=== PATIENT | male | born 1940 | race Caucasian/White ===

== ENCOUNTER 2017-12-12 19:55 | Inpatient (IN) | payer MEDICARE ==
--- NOTE | 2017-12-12 20:22 | ED Physician Chart ---
ED Chief Complaint/HPI - Patient Information Date Seen:: 12/12/17 Time Seen:: 20:05 Chief Complaint:: abnormal labs History of Present Illness:: Patient sent from the custodial facility for the following abnormal labs: TSH of 24.9; BUN/creatinine 150; creatinine 8.1; calcium 7.6. Allergies:: Allergies Allergy/AdvReac Type Severity Reaction Status Date / Time No Known Allergies Allergy Verified 12/12/17 20:11 Vitals:: Vital Signs - 8 hr 12/12/17 19:55 Temp 96.0 F HR 55 RR 16 BP 76/37 O2 Sat % 99 Review:: Transfer documents Reviewed ED Review of Systems - Review of Systems General/Constitutional: No fever, No chills Skin: No skin lesions Head: No headache Eyes: No loss of vision ENT: No earache Neck: No neck pain Cardio Vascular: No chest pain, No palpitations Pulmonary: No SOB GI: No nausea, No vomiting, No diarrhea G/U: No dysuria Musculoskeletal: No bone or joint pain Endocrine: No polyuria, No polydipsia Psychiatric: No prior psych history Hematopoietic: No bruising Allergic/Immuno: No urticaria Neurological: No syncope ED Past Medical History - Past Medical History Past Medical History: HTN, CAD, Asthma/COPD, Other (nasopharyngeal neoplasm; anxiety) Family History: Other (unavailable) Social History: Care Facility Surgical History: PEG/GTube Medication: Reviewed Family Medical History - Family Member Mother History Unknown: Yes ED Physical Exam - Physical Examination Other Gen/Cons comments:: Chronically ill-appearing; nonverbal Head: Atraumatic Eyes: Lids, conjuctiva normal, PERRL Other Skin comments:: Chronic upper extremity skin changes ENMT: External ears, nose nl Neck: Nontender Other Respiratory comments:: Inspiratory and expiratory wheezing Cardio Vascular: RRR GI: No tenderness/rebounding/guarding : No CVA tenderness Extremities: No tenderness or effusion Neuro/Psych: No focal deficits ED Labs/Radiology/EKG Results - Lab Results Comments:: Laboratory Results - last 24 hr 12/12/17 12/12/17 12/12/17 20:32 20:32 20:32 WBC 9.4 RBC 2.95 L Hgb 9.0 L Hct 26.7 L MCV 90.7 MCH 30.3 MCHC Differential 33.5 RDW 13.7 Plt Count 193 MPV 9.0 Neutrophils % 69.3 Lymphocytes % 14.4 L Monocytes % 10.2 H Eosinophils % 5.7 H Basophils % 0.4 Sodium 140 Potassium 5.2 H Chloride 101 Carbon Dioxide 27.4 Anion Gap 16.8 H BUN 166 H* Creatinine 8.0 H* Est GFR ( Amer) TNP Est GFR (Non-Af Amer) TNP BUN/Creatinine Ratio 20.8 Glucose 97 Calcium 7.9 L Magnesium 3.0 H TSH 5.98 H - Radiology Results Results: CXR: NAD - EKG Interpretations Rate & Rhythm: sinus bradycardia at a rate of 52 Meredith: normal axis Comments:: Low-voltage ED Septic Shock - . Is Septic Shock (SBP<90, OR Lactate>4 mmol\L) present?: No - <6hrs of presentation: Vital Signs: Vital Signs - 8 hr 12/12/17 19:55 Temp 96.0 F HR 55 RR 16 BP 76/37 O2 Sat % 99 ED Reassessment (Disposition) - Reassessment Reassessment Condition:: Unchanged - Diagnosis Diagnosis:: renal failure; borderline hyperkalemia; hypermagnesemia - Patient Disposition Admitted to:: ICU Spoke to:: Doug Urbina Admitting Medical Physician:: Doug Urbina Condition at Disposition:: Stable, Unchanged
[2017-12-12 20:44] LABS: % BASOPHILS 0.4 % (0.0-2.0); % EOSINOPHILS 5.7 % (0.0-5.0); % LYMPHOCYTES 14.4 % (20.0-50.0); % MONOCYTES 10.2 % (2.0-10.0); % NEUTROPHILS 69.3 % (40.0-80.0); EOSINOPHILE ABSOLUTE 0.5 Th/cmm (0.1-0.4); HEMATOCRIT 26.7 % (41.0-60); LYMPHOCYTE ABSOLUTE 1.4 Th/cmm (1.5-3.0); MEAN CELL VOLUME 90.7 fl (80-99); MEAN CORPUSCULAR HEMOGLOBIN 30.3 pg (27.0-31.0); MEAN CORPUSCULAR HGB CONC 33.5 pg (28.0-36.0); NEUTROPHILE ABSOLUTE 6.5 Th/cmm (1.8-8.0); PLATELET COUNT 193 Th/cmm (150-400); RED BLOOD COUNT 2.95 Mil/cmm (3.80-5.80); RED CELL DISTRIBUTION WIDTH 13.7 % (11.5-20.0); WHITE BLOOD COUNT 9.4 Th/cmm (4.8-10.8)
[2017-12-12 20:57] LABS: ANION GAP 16.8 (7.0-16.0); CALCIUM SERUM 7.9 mg/dL (8.6-10.3); CARBON DIOXIDE 27.4 mEq/L (21.0-31.0); CHLORIDE 101 mEq/L (98-107); GLUCOSE 97 mg/dL (70-105); POTASSIUM SERUM 5.2 mEq/L (3.5-5.1); SODIUM SERUM 140 mEq/L (136-145)
[2017-12-12 20:59] LABS: BUN - UREA NITROGEN 166 mg/dL (7-25)
[2017-12-12] MEDS ORDERED: Fleet Enema 135 mL RC PRN (22:30)
[2017-12-12] MEDS ORDERED: D5-0.9%NS 1,000 ML IV SCH (22:30)
[2017-12-12] MEDS: Albuterol/Ipratropium Neb 3 ML AERS HHN SCH (23:00)
[2017-12-13] MEDS: Albumin 25% 12.5gm/50mL 12.5 GM/50 ML BTL IV SCH ×4 (01:11→22:22)
[2017-12-13] MEDS: D5-0.9%NS 1,000 ML IV SCH ×2 (01:12→10:24)
[2017-12-13] MEDS: Albuterol/Ipratropium Neb 3 ML AERS HHN SCH ×6 (03:31→22:54)
[2017-12-13] MEDS ORDERED: Pneumococcal Vaccine 0.5 mL Vial IM ONE (03:41)
[2017-12-13 05:03] LABS: % BASOPHILS 0.2 % (0.0-2.0); % EOSINOPHILS 7.6 % (0.0-5.0); % LYMPHOCYTES 14.5 % (20.0-50.0); % NEUTROPHILS 68.7 % (40.0-80.0); EOSINOPHILE ABSOLUTE 0.8 Th/cmm (0.1-0.4); HEMOGLOBIN 8.6 gm/dL (12-16); LYMPHOCYTE ABSOLUTE 1.5 Th/cmm (1.5-3.0); MEAN CELL VOLUME 90.5 fl (80-99); MEAN CORPUSCULAR HEMOGLOBIN 29.8 pg (27.0-31.0); MEAN CORPUSCULAR HGB CONC 32.9 pg (28.0-36.0); MEAN PLATELET VOLUME 8.7 fl; MONOCYTE ABSOLUTE 0.9 Th/cmm (0.3-1.0); NEUTROPHILE ABSOLUTE 7.1 Th/cmm (1.8-8.0); PLATELET COUNT 187 Th/cmm (150-400); RED BLOOD COUNT 2.88 Mil/cmm (3.80-5.80); RED CELL DISTRIBUTION WIDTH 13.5 % (11.5-20.0); WHITE BLOOD COUNT 10.3 Th/cmm (4.8-10.8)
[2017-12-13 05:08] LABS: INR 1.07 (0.5-1.4); PROTHROMBIN TIME (TEST) 11.1 SECONDS (9.5-11.5)
[2017-12-13 05:19] LABS: ALB/GLOB RATIO 0.8 (1.0-1.8); ALBUMIN 2.6 gm/dL (4.2-5.5); ALKALINE PHOSPHATASE 42 U/L (34-104); ANION GAP 16.1 (7.0-16.0); BILIRUBIN,TOTAL 0.4 mg/dL (0.3-1.0); CALCIUM SERUM 7.9 mg/dL (8.6-10.3); CARBON DIOXIDE 28.9 mEq/L (21.0-31.0); CHLORIDE 101 mEq/L (98-107); GLUCOSE 123 mg/dL (70-105); SGOT 18 U/L (13-39); SGPT/ALT 10 U/L (7-52); SODIUM SERUM 141 mEq/L (136-145); TOTAL PROTEIN,SERUM 5.8 gm/dL (6.0-8.3)
[2017-12-13 05:28] LABS: BUN - UREA NITROGEN 163 mg/dL (7-25)
[2017-12-13 05:29] LABS: CREATININE - SERUM 8.1 mg/dL (0.7-1.3)
[2017-12-13] MEDS ORDERED: Piperacillin Sodium/Tazobact 2.25 gm Vial IV ONE (06:00)
[2017-12-13] MEDS: Piperacillin Sodium/Tazobact 2.25 GM in Sodium Chloride 0.9% 100 ML IV SCH ×2 (06:00→13:49)
--- NOTE | 2017-12-13 07:39 | Diagnostic Imaging Report ---
Portable chest x-ray HISTORY: Cough The heart size is difficult to assess with portable technique in a poor inspiration, but appears somewhat increased. Atherosclerotic calcification seen in the aorta. Allowing for the poor inspiration, no acute pulmonary processes are seen. Surgical suture material noted over the mid chest. IMPRESSION: 1. No acute focal prominent processes 2. Suggestion of cardiomegaly with atherosclerotic vascular changes 3. Surgical changes
[2017-12-13] MEDS ORDERED: Ascorbic Acid 500 mg/5 mL UDC GT SCH ×2 (09:00→11:00)
[2017-12-13] MEDS ORDERED: Multivitamin w/ Minerals 15 mL UDC GT SCH (09:00)
[2017-12-13] MEDS: Pantoprazole 40 mg/Packet GT SCH (09:55)
--- NOTE | 2017-12-13 10:10 | Diagnostic Imaging Report ---
Renal ultrasound HISTORY: Abnormal renal function test The exam is extremely limited due to lack of patient cooperation and combativeness. The left kidney could not be adequately evaluated. The right kidney appears to be normal in size (10.5 x 5.8 x 5.1 cm). A 1.07 m sonolucent lesion is seen in the lower pole consistent with a cyst. No hydronephrosis. Limited evaluation of the urinary bladder with no obvious intraluminal abnormalities. IMPRESSION: 1. Very limited exam as noted above. The left kidney could not be evaluated. 2. No hydronephrosis associated with the right kidney 3. Small right renal cyst
[2017-12-13] MEDS: INSULIN ASPART, RECOMBINANT 100 UNITS/ML SUBQ SCH ×4 (10:32→21:00)
[2017-12-13] MEDS: Multivitamin w/ Minerals Tab GT SCH (11:04)
[2017-12-13] MEDS ORDERED: DOPamine 400 MG/250 ML BAG IV PRN (13:08)
[2017-12-13] MEDS ORDERED: D5-0.9%NS 1,000 ML IV SCH (13:10)
[2017-12-13] MEDS: DOPamine 400 MG/250 ML BAG IV PRN (13:45)
--- NOTE | 2017-12-13 14:04 | Internal Medicine Prog Note ---
Internal Medicine Subjective - Subjective Service Date: 12/13/17 ([facility] [id number]) Internal Medicine Objective - Results Result Diagrams: 12/13/17 04:30 12/13/17 04:30 Recent Labs: Laboratory Last Values WBC 10.3 Th/cmm (4.8-10.8) 12/13/17 04:30 RBC 2.88 Mil/cmm (3.80-5.80) L 12/13/17 04:30 Hgb 8.6 gm/dL (12-16) L 12/13/17 04:30 Hct 26.0 % (41.0-60) L 12/13/17 04:30 MCV 90.5 fl (80-99) 12/13/17 04:30 MCH 29.8 pg (27.0-31.0) 12/13/17 04:30 MCHC Differential 32.9 pg (28.0-36.0) 12/13/17 04:30 RDW 13.5 % (11.5-20.0) 12/13/17 04:30 Plt Count 187 Th/cmm (150-400) 12/13/17 04:30 MPV 8.7 fl 12/13/17 04:30 Neutrophils % 68.7 % (40.0-80.0) 12/13/17 04:30 Lymphocytes % 14.5 % (20.0-50.0) L 12/13/17 04:30 Monocytes % 9.0 % (2.0-10.0) 12/13/17 04:30 Eosinophils % 7.6 % (0.0-5.0) H 12/13/17 04:30 Basophils % 0.2 % (0.0-2.0) 12/13/17 04:30 PT 11.1 SECONDS (9.5-11.5) 12/13/17 04:30 INR 1.07 (0.5-1.4) 12/13/17 04:30 PTT (Actin FS) 30.7 SECONDS (26.0-38.0) 12/13/17 04:30 Sodium 141 mEq/L (136-145) 12/13/17 04:30 Potassium 5.0 mEq/L (3.5-5.1) 12/13/17 04:30 Chloride 101 mEq/L (98-107) 12/13/17 04:30 Carbon Dioxide 28.9 mEq/L (21.0-31.0) 12/13/17 04:30 Anion Gap 16.1 (7.0-16.0) H 12/13/17 04:30 BUN 163 mg/dL (7-25) H* 12/13/17 04:30 Creatinine 8.1 mg/dL (0.7-1.3) H* 12/13/17 04:30 Est GFR ( Amer) TNP 12/13/17 04:30 Est GFR (Non-Af Amer) TNP 12/13/17 04:30 BUN/Creatinine Ratio 20.1 12/13/17 04:30 Glucose 123 mg/dL (70-105) H 12/13/17 04:30 POC Glucose 134 MG/DL (70 - 105) H 12/13/17 11:08 Calcium 7.9 mg/dL (8.6-10.3) L 12/13/17 04:30 Magnesium 3.0 mg/dL (1.9-2.7) H 12/12/17 20:32 Total Bilirubin 0.4 mg/dL (0.3-1.0) 12/13/17 04:30 AST 18 U/L (13-39) 12/13/17 04:30 ALT 10 U/L (7-52) 12/13/17 04:30 Alkaline Phosphatase 42 U/L (34-104) 12/13/17 04:30 Ammonia 29 umol/L (16-53) 12/13/17 04:30 B-Natriuretic Peptide 945.0 pg/mL (5.0-100.0) H 12/13/17 04:30 Total Protein 5.8 gm/dL (6.0-8.3) L 12/13/17 04:30 Albumin 2.6 gm/dL (4.2-5.5) L 12/13/17 04:30 Globulin 3.2 gm/dL 12/13/17 04:30 Albumin/Globulin Ratio 0.8 (1.0-1.8) L 12/13/17 04:30 TSH 5.98 uIU/ml (0.34-5.60) H 12/12/17 20:32 - Physical Exam Vitals and I&O: Vital Signs Temp 96.8 F 12/13/17 12:00 Pulse 69 12/13/17 12:40 Resp 18 12/13/17 12:40 BP 117/67 12/13/17 12:00 Pulse Ox 98 12/13/17 12:40 Intake & Output 12/12/17 12/13/17 12/13/17 18:59 06:59 18:59 Intake Total 50 1430.066 Output Total 101 Balance 50 1329.066 Weight (lbs) 159 lb Intake: Intake, IV Amount 50 1120.066 Albumin 25% 12.5gm/50mL 50 12.5 gm In 50 ml @ 50 mls /hr IV Q8H [facility] Rx#: [id number] D5-0.9%Ns 1,000 ml @ 125 1000 mls/hr IV .Q8H [facility] Rx#: [id number] Norepinephrine 4 mg In 20.066 Dextrose 5% 250 ml @ Per Protocol IV TITR PRN Rx#: [id number] Piperacillin Sodium/ 100 Tazobact 2.25 gm In Sodium Chloride 0.9% 100 ml @ 100 mls/hr IV Q8HR [facility] Rx#:[id number] Tube Feeding 210 Other 100 Output: Urine 100 Stool 1 Other: Stool Characteristics Soft Soft Active Medications: Current Medications Acetaminophen (Tylenol) 650 mg GT Q4HR PRN PRN Reason: Pain or Fever >101 Stop: 02/10/18 22:29 Albuterol/Ipratropium (Duoneb Neb) 3 ml HHN Q4HRT [facility] Stop: 02/10/18 22:59 Last Admin: 12/13/17 12:40 Dose: 3 ml Ascorbic Acid (Vitamin C) 500 mg GT DAILY [facility] Stop: 02/11/18 10:59 Bisacodyl (Dulcolax 10 Mg Supp) 10 mg RC DAILY PRN PRN Reason: Constipation Stop: 02/10/18 22:29 Albumin Human (Albutein 25%) 12.5 gm in 50 mls @ 50 mls/hr IV Q8H [facility] Stop: 12/13/17 23:31 Last Admin: 12/13/17 08:00 Dose: 50 mls/hr Norepinephrine Bitartrate 4 mg (/ Dextrose) 254 mls @ 0 mls/hr IV TITR PRN; Protocol; Per Protocol PRN Reason: To Keep SBP Above 90 Stop: 02/10/18 22:33 Last Titration: 12/13/17 11:19 Dose: 0 mcg/min, 0 mls/hr Piperacillin Sod/Tazobactam (Sod 2.25 gm/ Sodium Chloride) 100 mls @ 100 mls/ hr IV Q8HR [facility] Stop: 02/11/18 04:59 Last Admin: 12/13/17 13:49 Dose: 100 mls/hr Dextrose/Sodium Chloride (D5-0.9%Ns) 1,000 mls @ 70 mls/hr IV .[id number] [facility] Stop: 02/11/18 13:07 Last Admin: 12/13/17 13:10 Dose: 70 mls/hr Dopamine HCl/Dextrose (Dopamine) 400 mg in 250 mls @ 8.114 mls/hr IV TITR PRN; 3 MCG/KG/MIN PRN Reason: RENAL PERFUSION Stop: 02/11/18 13:09 Last Admin: 12/13/17 13:45 Dose: 3 mcg/kg/min, 8.114 mls/hr Insulin Aspart (Novolog) 0 units SUBQ ACHS AYAN PRN Reason: Protocol Stop: 02/11/18 07:29 Last Admin: 12/13/17 11:09 Dose: Not Given Lorazepam (Ativan) 0.5 mg GT Q6HR PRN; Protocol PRN Reason: Anxiety Stop: 02/10/18 22:29 Ondansetron HCl (Zofran) 4 mg IVP Q6H PRN PRN Reason: Nausea / Vomiting Stop: 02/10/18 22:25 Pantoprazole Sodium (Protonix) 40 mg GT DAILY [facility] Stop: 02/11/18 08:59 Last Admin: 12/13/17 09:55 Dose: 40 mg Sodium Phosphate (Fleet Enema) 135 ml RC Q72HR PRN PRN Reason: Constipation Stop: 02/10/18 22:29
[2017-12-13 14:47] LABS: URINE MICROSCOPIC INDICATED? YES; URINE SOURCE CATH
[2017-12-13 14:52] LABS: URINE BILIRUBIN NEGATIVE (NEGATIVE); URINE BLOOD LARGE (NEGATIVE); URINE GLUCOSE (UA) NEGATIVE (NEGATIVE); URINE KETONE NEGATIVE (NEGATIVE); URINE LEUKOCYTE ESTERASE TRACE (NEGATIVE); URINE NITRATE NEGATIVE (NEGATIVE); URINE PH 7.5 (4.6 - 8.0); URINE PROTEIN 100 mg/dL (NEGATIVE); URINE UROBILINOGEN 0.2 E.U./dL (0.2 - 1.0)
[2017-12-13 15:47] LABS: URINE CLARITY SLIGHT CLOUDY (CLEAR); URINE COLOR RED
[2017-12-13 15:48] LABS: URINE RBC 50-100 /hpf (0-5)
[2017-12-13 15:49] LABS: URINE BACTERIA OCCASIONAL /hpf (NONE SEEN); URINE EPITHELIAL CELLS OCCASIONAL /lpf (FEW)
[2017-12-13] MEDS ORDERED: VTE Chemical Prophylaxis Screen/Admission MC PRN (15:51)
--- NOTE | 2017-12-13 16:06 | History & Physical ---
ADMIT DATE: 12/13/2017 CHIEF COMPLAINT: Abnormal labs. HISTORY OF PRESENT ILLNESS: This is a 77-year-old male who is a resident of [facility], who is admitted to the ICU unit. The patient's BUN was above 115, creatinine was 8.1. For this reason, the patient was transferred here to [facility]. The patient's son is at bedside and states that he will sign papers for the patient to be DNR and he does not want the patient to have any dialysis. The patient was on Levophed last night. The patient is now off of Levophed. PAST MEDICAL HISTORY: Pneumonia, history of nasopharyngeal cancer, COPD, CAD, anxiety, sepsis, CVA, hypertension, diabetes. PAST SURGICAL HISTORY: PEG. MEDICATIONS: Please see medication reconciliation. FAMILY HISTORY: Noncontributory. SOCIAL HISTORY: The patient is a snf resident concern for nursing care. REVIEW OF SYSTEMS: Unable to obtain due to patient's mental status. The patient is confused. PHYSICAL EXAMINATION: GENERAL: The patient appears chronically ill, awake with confusion in no apparent distress. VITAL SIGNS: Temperature 96.8, heart rate 70, blood pressure 117/67, respiration 15, O2 of 97%. HEENT: Head; normocephalic, atraumatic. NECK: Supple. No mass. LUNGS: Clear bilaterally. CARDIOVASCULAR: Regular rate and rhythm. ABDOMEN: Soft, nontender. LABORATORY DATA: WBC 10.3, H and H 8.6 and 26.0, platelet of 187. Sodium 141, potassium 5.0, chloride of 101, BUN 163, creatinine of 8.1, calcium 7.9. BNP of 945, TSH 5.98. DIAGNOSTIC: The patient had a chest x-ray done and the impression is no acute focal prominent processes suggestion of cardiomegaly with atherosclerotic vascular changes, surgical changes. The patient had a renal ultrasound done and the impression is very limited exam as noted above. The left kidney could not be evaluated. No hydronephrosis associated with the right kidney, small right renal cyst. ASSESSMENT: , acute renal failure, history of CVA, hypertension, diabetes, history of nasopharyngeal cancer, COPD, CAD, anxiety. PLAN: The patient will be monitored closely in the ICU. We will get Cardiology, Nephrology on the case. Also, Psychiatry. We will get a 2D echocardiogram done. IV fluids for hydration, dopamine for renal perfusion, empiric IV antibiotics. We will continue to follow this patient. [facility]# [id number]
--- NOTE | 2017-12-13 16:22 | Cardiology ---
12/13/[address] Urbina PROCEDURE: Echocardiogram. M-MODE ECHOCARDIOGRAM: Mitral valve, anterior leaflet of mitral valve shows normal excursion, EF velocity. Posterior leaflet of mitral valve shows normal excursion. Left ventricle posterior wall shows increased thickness, normal excursion. Interventricular septum shows increased thickness, normal excursion, hypertrophy of the left ventricle, ejection fraction 50%. Left atrium normal. Aortic root shows normal dimension, normal excursion of aortic leaflets. CONCLUSION: Hypertrophy of the left ventricle, ejection fraction 50%. 2D ECHO: Long axis view show normal size left ventricle with hypertrophy of the left ventricle. Left atrium enlarged. Aortic root shows normal dimension, normal excursion of aortic leaflets. Short axis view of mitral valve normal. Short axis view of aortic valve normal. Apical four chamber view showed normal sized left ventricle with hypertrophy of the left ventricle. Left atrium enlarged. Right ventricular cavity normal. Right atrial enlargement, ejection fraction 50%. CONCLUSION: Biatrial enlargement, ejection fraction 50%. Doppler study shows moderate tricuspid regurgitation, right ventricular systolic pressure 34 mmHg. JOB# [id number]
[2017-12-13] MEDS: methylPREDNISolone SS 40 mg Vial IVP SCH ×2 (16:55→20:59)
[2017-12-13] MEDS ORDERED: Probiotic Screen MC PRN (17:24)
[2017-12-13 18:36] LABS: A1C % 5.4 % (4.0-6.0)
--- NOTE | 2017-12-13 22:29 | Consultation ---
DATE OF CONSULTATION: 12/13/2017 REASON FOR CONSULTATION: Worsening kidney function, electrolyte imbalance, and fluid management. HISTORY OF PRESENT ILLNESS: This is a 77-year-old male with past medical history of nasopharyngeal CA, who was brought in because of abnormal labs. A few hours prior to admission, the patient had his labs drawn at the [facility]. This revealed a BUN/creatinine of 150/8.1 with a TSH of 24.9. He was then brought to the Emergency Room. His BUN/creatinine were 166/8, BNP of 945, but TSH down to 5.98. Renal ultrasound revealed no hydronephrosis on the right kidney and a small right cyst. Chest x-ray revealed no acute focal process. He had no history of nausea, vomiting, diarrhea, UTI. PAST MEDICAL HISTORY: 1. 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 Orosco. His oncologist is Dr. Cortez initiated chemotherapy followed by radiation by Dr. Willingham. 2. Status post CVA. 3. COPD. 4. Coronary artery disease. 5. Anxiety. 6. Essential hypertension. 7. Anemia of chronic disease. CURRENT MEDICATIONS: He is currently on acetaminophen, ascorbic acid, dopamine drip, Levophed, levothyroxine, lorazepam, multivitamins, pantoprazole, and Zosyn. ALLERGIES: No known drug allergies. SOCIAL AND FAMILY HISTORY: I was not able to obtain from the patient because he is currently stuporous. REVIEW OF SYSTEMS: Again, I was not able to decipher directly from the patient because of his depressed mental status. PHYSICAL EXAMINATION: GENERAL: The patient remains drowsy, not in any distress, with this mild tachypnea. VITAL SIGNS: Blood pressure is 108/74 and pulse 75. The patient is afebrile. SKIN: Poor turgor, warm. No rash, no jaundice appreciated. HEENT: Head normocephalic, atraumatic. Eyes: Extraocular muscles intact. Pupils equal, round, reactive to light and accommodates. Anicteric sclerae. Pale conjunctivae. Nose: Midline nasal septum. Mouth: Dry mucosa. Poor dentition. NECK: Supple, no adenopathy, no thyromegaly, no bruits. Trachea palpated in the midline. CHEST AND CARDIOVASCULAR: S1, S2. No rub, murmur, no gallop appreciated. Point of maximal impulse fifth intercostal space, left midclavicular line. No abdominal or femoral bruits appreciated. LUNGS: Equal expansion. Minimal use of accessory muscles, but no supraclavicular retractions, few rhonchi, but scattered expiratory wheezes. ABDOMEN: Obese, soft, positive for bowel sounds. No bruits either diastolic or systolic. RECTAL: Deferred. GENITOURINARY: Normal appearing male genitalia. MUSCULOSKELETAL: No effusions present in his joints, but unable to assess his range of motion. EXTREMITIES: No evidence of edema, cyanosis, or clubbing with palpable femoral, popliteal, and dorsalis pedis pulses. NEUROLOGIC: The patient is as mentioned is drowsy at the present time and so he was not able to follow my neuro exam. LABORATORY DATA: Revealed white count 10.3, hemoglobin 8.6, hematocrit 26, platelets 187, and polys 68.7%. Sodium 141, potassium 5, chloride 101, CO2 28, BUN was 63, creatinine 8.1, glucose 123, and calcium is 7.9. BNP is 945, ammonia 29, albumin 2.6. TSH 5.98. IMPRESSION: 1. Acute kidney injury. Although the patient currently is on a G-tube feeding with water flushes, the patient may have developed dehydration because of insufficient replenishment of fluids to cover for both sensible and insensible losses. He could have developed prerenal azotemia, which eventually progressed to acute tubular injury. 2. Exacerbation of chronic obstructive pulmonary disease. 3. Elevated BNP, likely due to his kidney failure. 4. Severe malnutrition. 5. History of nasopharyngeal CA, which has been treated. 6. Status post cerebrovascular accident. 7. Coronary artery disease. 8. History of anxiety. 9. Essential hypertension. 10. Anemia of chronic disease. PLAN: 1. Continue with IV fluids. 2. Maintain pressors. 3. Urinalysis. 4. Urine sodium, eosinophils, and creatinine. 5. Urine microalbumin to creatinine ratio. 6. Family does not want any aggressive management at this point including dialysis. Family has discussed this with the patient when he was more coherent. 7. Start the patient on steroids along with breathing treatments. 8. Start the patient on levothyroxine. JOB# [id number]
--- NOTE | 2017-12-14 02:29 | Consultation ---
DATE OF CONSULTATION: 12/13/[address] Urbina. HISTORY OF PRESENT ILLNESS: This 77-year-old male patient transferred from [place] due to elevated BUN 115, creatinine 8.4 and the patient is admitted. The patient's son request is to have a DNR and no dialysis. The patient at the present time is hypotensive and patient was on Levophed. Cardiac consult is requested in view of hypotension. PAST MEDICAL HISTORY: Pneumonia, nasopharyngeal cancer, COPD, stable angina, coronary artery disease, sepsis, anxiety, hypertension, diabetes, CVA with late effect, dysphagia with PEG placement, and protein-calorie malnutrition. FAMILY HISTORY: Unremarkable. SOCIAL HISTORY: No history of smoking or alcohol abuse. ALLERGIES: No known allergies. PHYSICAL EXAMINATION: VITAL SIGNS: Blood pressure 90 systolic, on Levophed, pulse 120, and respirations 28. HEENT: Normocephalic. No lumps or bumps. Eyes: Pupils equal, reactive to light. Fundi show AV nicking, sclerae white, conjunctivae pink. NECK: Carotid 2+. Normal upstroke. JVD flat. Thyroid not palpable. Lymph nodes not palpable. CHEST: Shows increased AP diameter. No kyphosis, scoliosis. LUNGS: Bilateral bronchovesicular breath sounds. Occasional wheeze. No rales. HEART: PMI fifth intercostal space with lateral to midclavicular line. S1, S2. No S3, S4, soft systolic murmur. ABDOMEN: Soft. Liver and spleen not palpable. PEG in place. NEUROLOGICAL: Unremarkable. EXTREMITIES: Peripheral pulses 2+. No pedal edema. CLINICAL IMPRESSION: Hypotension, septic shock, respiratory failure, hypothyroid, protein calorie malnutrition, dysphagia with PEG placement, nasopharyngeal cancer, chronic obstructive pulmonary disease, stable angina, cerebrovascular accident with late effect; diabetes mellitus type 2, and diabetic chronic kidney disease, stage V. PLAN: The patient to continue Levophed. We might add dopamine because of renal perfusion. The patient's condition discussed with the son at the bedside. He wishes the patient not to have dialysis. JOB# [id number]
[2017-12-14] MEDS: Albuterol/Ipratropium Neb 3 ML AERS HHN SCH ×6 (03:47→23:57)
[2017-12-14] MEDS: methylPREDNISolone SS 40 mg Vial IVP SCH ×3 (05:00→20:48)
[2017-12-14 05:27] LABS: ANION GAP 18.5 (7.0-16.0); CALCIUM SERUM 7.8 mg/dL (8.6-10.3); CARBON DIOXIDE 23.3 mEq/L (21.0-31.0); CHLORIDE 99 mEq/L (98-107); GLUCOSE 304 mg/dL (70-105); HEMATOCRIT 27.9 % (41.0-60); HEMOGLOBIN 9.5 gm/dL (12-16); LYMPHOCYTE ABSOLUTE 0.6 Th/cmm (1.5-3.0); MAGNESIUM 2.9 mg/dL (1.9-2.7); MANUAL DIFF REQUIRED? YES; MEAN CELL VOLUME 89.8 fl (80-99); MEAN CORPUSCULAR HEMOGLOBIN 30.5 pg (27.0-31.0); MEAN CORPUSCULAR HGB CONC 33.9 pg (28.0-36.0); MEAN PLATELET VOLUME 9.8 fl; PHOSPHOROUS 8.3 mg/dL (2.5-5.0); PLATELET COUNT 176 Th/cmm (150-400); POTASSIUM SERUM 5.8 mEq/L (3.5-5.1); RED CELL DISTRIBUTION WIDTH 13.6 % (11.5-20.0); SODIUM SERUM 135 mEq/L (136-145); URIC ACID 3.3 mg/dL (4.4-7.6); WHITE BLOOD COUNT 11.6 Th/cmm (4.8-10.8)
[2017-12-14 06:24] LABS: BUN - UREA NITROGEN 155 mg/dL (7-25); CREATININE - SERUM 7.6 mg/dL (0.7-1.3)
[2017-12-14 06:54] LABS: LYMPHOCYTE 6 % (20-50); MONOCYTE 2 % (2-10); NEUTROPHILS 92 % (40-80); PLATELET ESTIMATE ADEQUATE (NORMAL); TOTAL CELLS COUNTED 100
[2017-12-14] MEDS: INSULIN ASPART, RECOMBINANT 100 UNITS/ML SUBQ SCH ×4 (07:09→21:19)
[2017-12-14] MEDS: Levothyroxine 0.05 Mg Tab PO SCH (08:00)
[2017-12-14] MEDS: Multivitamin w/ Minerals Tab GT SCH (09:23)
[2017-12-14] MEDS: Pantoprazole 40 mg/Packet GT SCH (09:23)
[2017-12-14] MEDS: Lactobacillus Rhamnosus GG 15 Billion CFU CAP.SPRINK PO SCH (09:23)
[2017-12-14 09:48] LABS: EOSINOPHIL SMEAR SOURCE URINE; EOSINOPHILS SMEAR COUNT FEW EOSINOPHILS SEEN (NONE SEEN)
--- NOTE | 2017-12-14 14:41 | Internal Medicine Prog Note ---
Internal Medicine Subjective - Subjective Patient seen and examined:: with staff, chart reviewed Patient is:: awake, verbal, non-interactive, in bed, agitated, confused, congested Patient Complaints of:: congestion Per staff patient has:: no adverse event, no episodes of fall, agitated, combative, tolerating meds Internal Medicine Objective - Results Result Diagrams: 12/14/17 04:50 12/14/17 04:50 Recent Labs: Laboratory Last Values WBC 11.6 Th/cmm (4.8-10.8) H 12/14/17 04:50 RBC 3.10 Mil/cmm (3.80-5.80) L 12/14/17 04:50 Hgb 9.5 gm/dL (12-16) L 12/14/17 04:50 Hct 27.9 % (41.0-60) L 12/14/17 04:50 MCV 89.8 fl (80-99) 12/14/17 04:50 MCH 30.5 pg (27.0-31.0) 12/14/17 04:50 MCHC Differential 33.9 pg (28.0-36.0) 12/14/17 04:50 RDW 13.6 % (11.5-20.0) 12/14/17 04:50 Plt Count 176 Th/cmm (150-400) 12/14/17 04:50 MPV 9.8 fl 12/14/17 04:50 Neutrophils % 68.7 % (40.0-80.0) 12/13/17 04:30 Lymphocytes % 14.5 % (20.0-50.0) L 12/13/17 04:30 Monocytes % 9.0 % (2.0-10.0) 12/13/17 04:30 Eosinophils % 7.6 % (0.0-5.0) H 12/13/17 04:30 Basophils % 0.2 % (0.0-2.0) 12/13/17 04:30 Neutrophils (Manual) 92 % (40-80) H 12/14/17 04:50 Lymphocytes 6 % (20-50) L 12/14/17 04:50 Monocytes 2 % (2-10) 12/14/17 04:50 Platelet Estimate ADEQUATE (NORMAL) 12/14/17 04:50 Eos Smear Source URINE 12/14/17 05:20 Eos Smear Total Cells FEW EOSINOPHILS SEEN (NONE SEEN) 12/14/17 05:20 PT 11.1 SECONDS (9.5-11.5) 12/13/17 04:30 INR 1.07 (0.5-1.4) 12/13/17 04:30 PTT (Actin FS) 30.7 SECONDS (26.0-38.0) 12/13/17 04:30 Sodium 135 mEq/L (136-145) L 12/14/17 04:50 Potassium 5.8 mEq/L (3.5-5.1) H 12/14/17 04:50 Chloride 99 mEq/L (98-107) 12/14/17 04:50 Carbon Dioxide 23.3 mEq/L (21.0-31.0) 12/14/17 04:50 Anion Gap 18.5 (7.0-16.0) H 12/14/17 04:50 BUN 155 mg/dL (7-25) H* 12/14/17 04:50 Creatinine 7.6 mg/dL (0.7-1.3) H* 12/14/17 04:50 Est GFR ( Amer) TNP 12/14/17 04:50 Est GFR (Non-Af Amer) TNP 12/14/17 04:50 BUN/Creatinine Ratio 20.4 12/14/17 04:50 Glucose 304 mg/dL (70-105) H 12/14/17 04:50 POC Glucose 157 MG/DL (70 - 105) H 12/14/17 12:25 Hemoglobin A1c % 5.4 % (4.0-6.0) 12/13/17 04:30 Uric Acid 3.3 mg/dL (4.4-7.6) L 12/14/17 04:50 Calcium 7.8 mg/dL (8.6-10.3) L 12/14/17 04:50 Phosphorus 8.3 mg/dL (2.5-5.0) H 12/14/17 04:50 Magnesium 2.9 mg/dL (1.9-2.7) H 12/14/17 04:50 Total Bilirubin 0.4 mg/dL (0.3-1.0) 12/13/17 04:30 AST 18 U/L (13-39) 12/13/17 04:30 ALT 10 U/L (7-52) 12/13/17 04:30 Alkaline Phosphatase 42 U/L (34-104) 12/13/17 04:30 Ammonia 36 umol/L (16-53) 12/14/17 04:50 B-Natriuretic Peptide 945.0 pg/mL (5.0-100.0) H 12/13/17 04:30 Total Protein 5.8 gm/dL (6.0-8.3) L 12/13/17 04:30 Albumin 2.6 gm/dL (4.2-5.5) L 12/13/17 04:30 Globulin 3.2 gm/dL 12/13/17 04:30 Albumin/Globulin Ratio 0.8 (1.0-1.8) L 12/13/17 04:30 TSH 5.98 uIU/ml (0.34-5.60) H 12/12/17 20:32 Urine Source CATH 12/13/17 13:00 Urine Color RED 12/13/17 13:00 Urine Clarity SLIGHT CLOUDY (CLEAR) 12/13/17 13:00 Urine pH 7.5 (4.6 - 8.0) 12/13/17 13:00 Ur Specific [place] 1.015 (1.005-1.030) 12/13/17 13:00 Urine Protein 100 mg/dL (NEGATIVE) H 12/13/17 13:00 Urine Glucose (UA) NEGATIVE mg/dL (NEGATIVE) 12/13/17 13:00 Urine Ketones NEGATIVE mg/dL (NEGATIVE) 12/13/17 13:00 Urine Blood LARGE (NEGATIVE) H 12/13/17 13:00 Urine Nitrate NEGATIVE (NEGATIVE) 12/13/17 13:00 Urine Bilirubin NEGATIVE (NEGATIVE) 12/13/17 13:00 Urine Urobilinogen 0.2 E.U./dL (0.2 - 1.0) 12/13/17 13:00 Ur Leukocyte Esterase TRACE (NEGATIVE) H 12/13/17 13:00 Urine RBC 50-100 /hpf (0-5) H 12/13/17 13:00 Urine WBC 2-5 /hpf (0-5) 12/13/17 13:00 Ur Epithelial Cells OCCASIONAL /lpf (FEW) 12/13/17 13:00 Urine Bacteria OCCASIONAL /hpf (NONE SEEN) 12/13/17 13:00 Ur Random Sodium 80 mmol/L 12/14/17 05:20 Urine Creatinine 21.8 mg/dl (39.0-259.0) L 12/14/17 05:20 - Physical Exam Vitals and I&O: Vital Signs Temp 98.0 F 12/14/17 04:00 Pulse 74 12/14/17 10:57 Resp 13 12/14/17 10:57 BP 130/80 12/14/17 06:00 Pulse Ox 95 12/14/17 10:57 Intake & Output 12/13/17 12/14/17 12/14/17 18:59 06:59 18:59 Intake Total 2100.066 1879.493 Output Total 471 500 Balance 0609.359 6659.493 Weight (lbs) 78.642 kg 72.575 kg Intake: Intake, IV Amount 3465.659 1922.493 Albumin 25% 12.5gm/50mL 100 12.5 gm In 50 ml @ 50 mls /hr IV Q8H [facility] Rx#: [id number] D5-0.9%Ns 1,000 ml @ 125 1000 mls/hr IV .Q8H [facility] Rx#: [id number] D5-0.9%Ns 1,000 ml @ 70 1000 mls/hr IV .[id number] [facility] Rx #:[id number] DOPamine 400 mg In 250 ml 131.853 @ 3 MCG/KG/MIN 8.114 mls /hr IV TITR PRN Rx#: [id number] Norepinephrine 4 mg In 20.066 167.64 Dextrose 5% 250 ml @ Per Protocol IV TITR PRN Rx#: [id number] Piperacillin Sodium/ 100 Tazobact 2.25 gm In Sodium Chloride 0.9% 100 ml @ 100 mls/hr IV Q8HR [facility] Rx#:[id number] Piperacillin Sodium/ 100 Tazobact 2.25 gm In Sodium Chloride 0.9% 50 ml @ 100 mls/hr IV Q8HR [facility] Rx#:[id number] Tube Feeding 480 330 Other 300 150 Output: Urine 470 500 Stool 1 Other: # Bowel Movements 1 0 Active Medications: Current Medications Acetaminophen (Tylenol) 650 mg GT Q4HR PRN PRN Reason: Pain or Fever >101 Stop: 02/10/18 22:29 Albuterol/Ipratropium (Duoneb Neb) 3 ml HHN Q4HRT [facility] Stop: 02/10/18 22:59 Last Admin: 12/14/17 10:57 Dose: 3 ml Ascorbic Acid (Vitamin C) 500 mg GT DAILY [facility] Stop: 02/11/18 10:59 Last Admin: 12/14/17 09:23 Dose: 500 mg Bisacodyl (Dulcolax 10 Mg Supp) 10 mg RC DAILY PRN PRN Reason: Constipation Stop: 02/10/18 22:29 Norepinephrine Bitartrate 4 mg (/ Dextrose) 254 mls @ 0 mls/hr IV TITR PRN; Protocol; Per Protocol PRN Reason: To Keep SBP Above 90 Stop: 02/10/18 22:33 Last Titration: 12/14/17 01:30 Dose: 0 mcg/min, 0 mls/hr Dopamine HCl/Dextrose (Dopamine) 400 mg in 250 mls @ 8.114 mls/hr IV TITR PRN; 3 MCG/KG/MIN PRN Reason: RENAL PERFUSION Stop: 02/11/18 13:09 Last Infusion: 12/14/17 06:00 Dose: 3 mcg/kg/min, 8.114 mls/hr Piperacillin Sod/Tazobactam (Sod 2.25 gm/ Sodium Chloride) 50 mls @ 100 mls/hr IV Q8HR [facility] Stop: 02/11/18 04:59 Last Infusion: 12/14/17 05:30 Dose: Infused Dextrose/Sodium Chloride (D5-0.45ns) 1,000 mls @ 80 mls/hr IV .[id number] [facility] Stop: 02/12/18 14:44 Insulin Aspart (Novolog) 0 units SUBQ ACHS [facility] PRN Reason: Protocol Stop: 02/11/18 07:29 Last Admin: 12/14/17 12:32 Dose: Not Given Lactobacillus Rhamnosus (Culturelle 15b) 1 each PO DAILY [facility] Stop: 02/12/18 08:59 Last Admin: 12/14/17 09:23 Dose: 1 each Levothyroxine Sodium (Synthroid) 0.05 mg PO QDAC [facility] Stop: 02/12/18 07:29 Lorazepam (Ativan) 0.5 mg GT Q6HR PRN; Protocol PRN Reason: Anxiety Stop: 02/10/18 22:29 Last Admin: 12/14/17 09:23 Dose: 0.5 mg Methylprednisolone Sodium Succinate (Solu-Medrol) 60 mg IVP Q8HR [facility] Stop: 02/11/18 16:14 Last Admin: 12/14/17 05:00 Dose: 60 mg Miscellaneous (Vte Chemical Prophylaxis Screen/ Admission) 1 ea PRN PRN PRN Reason: PROTOCOL Stop: 02/11/18 15:50 Miscellaneous (Probiotic Screen) 1 ea PRN PRN PRN Reason: PROTOCOL Stop: 02/11/18 17:23 Ondansetron HCl (Zofran) 4 mg IVP Q6H PRN PRN Reason: Nausea / Vomiting Stop: 02/10/18 22:25 Pantoprazole Sodium (Protonix) 40 mg GT DAILY [facility] Stop: 02/11/18 08:59 Last Admin: 12/14/17 09:23 Dose: 40 mg Sodium Phosphate (Fleet Enema) 135 ml RC Q72HR PRN PRN Reason: Constipation Stop: 02/10/18 22:29 Sodium Polystyrene Sulfonate (Kayexalate) 60 gm PO X1 ONE Stop: 12/14/17 14:35 General: demented, bilateral temporal wasting HEENT: NC/AT, PERRLA Neck: Supple, No JVD Lungs: congested, rales, ronchi Cardiovascular: RRR, Normal S1, Normal S2, with murmur Abdomen: soft, non-tender, globular, +GT, positive bowel sound Extremities: excoriation, contracture, deformity Neurological: no change, unable to follow command, bedbound Internal Medicine Assmt/Plan - Assessment Assessment: sepsis arf hypotension cva int ca htn dm copd cad anemia - Plan Plan: cont on iv abx monitor renal function will review renal us dw dr rodriguez will correct maurisio ibarra rn Nutritional Asmnt/Malnutr-PDOC - Dietary Evaluation Malnutrition Findings (Please click <Entered> for more info): Nutritional Asmnt/Malnutrition Start: 12/13/17 14: 43 Text: Status: Complete Freq: Document 12/13/17 14:43 LCVERENICE (Rec: 12/13/17 14:54 LCHENG JOSE ALEJANDRO-[email or web address]) Nutritional Asmnt/Malnutrition Patient General Information Nutritional Screening High Risk Diagnosis hypotension, acute renal failure Pertinent Medical Hx/Surgical Hx HTN, CAD, asthma/COPD, nasopharyngeal neoplasm, anxiety, PEG-Gtube Subjective Information Pt seen lying in bed, confused . Verified TF running at 30ml/ hr at time of visit. Per nurse note 3/2, no residual noted. Current Diet Order/ Nutrition Support Novosource Renal 30ml/hr x 20hr Pertinent Medications Vit C, d5-0.9%ns, dopamine, novolog, protonix, piperacillin Pertinent Labs 3/2 na 141, K 5.0, Cl 101, BUN 163, Cr 8.1, Glucose 123, POC 123-134, Ca 7.9 Nutritional Hx/Data Height 1.57 m Height (Calculated Centimeters) 157.5 Current Weight (lbs) 72.121 kg Weight (Calculated Kilograms) 72.1 Weight (Calculated Grams) 29273.2 [place] Body Weight 118 % [place] Body Weight 135 Body Mass Index (BMI) 29.0 Weight Status Overweight GI Symptoms GI Symptoms None Last BM 3/2 Difficult in: None Skin Integrity/Comment: rash to left leg, bruise to right and left arm Estimated Nutritional Goals BEE in Kcals: Using Current wt Calories/Kcals/Kg 25-30 Kcals Calculated 9016-1060 Protein: Using Current wt Protein g/k.8-1 considering renal labs Protein Calculated 45-56 Fluid: ml per MD considering acute renal failure Nutritional Problem 1. Problem Problem altered nutrition related lab values Etiology dx of acute renal failure, hx of DM Signs/Symptoms: BUN 163, Cr 8.1, Glucose 123, POC 123-134 Malnutrition Alert Protein-Calorie Malnutrition N/A Is there a minimum of two criteria No selected? Query Text:Check all the applicable criteria. A minimum of two criteria are recommended for diagnosis of either severe or non-severe malnutrition. Intervention/Recommendation Comments 1. Continue with current TF regimen. It provides 1200kcal, 54g protein, 430ml free water , meeting 100% of nutritional needs 2. Monitor TF rate, tolerance, wt weekly, skin integrity and labs 3. F/U as high risk in 2-3 days, 3/4-3/5 Expected Outcomes/Goals Expected Outcomes/Goals 1. Pt to meet at least 75% of nutritional needs via nutrition support with tolerance 2. Wt stability, skin to remain intact, labs to approach WNL.
--- NOTE | 2017-12-14 15:06 | General Progress Note ---
Subjective - Review of Systems Service Date: 12/14/17 Subjective: awake, agitated, screaming Objective - Results Result Diagrams: 12/14/17 04:50 12/14/17 04:50 Recent Labs: Laboratory Last Values WBC 11.6 Th/cmm (4.8-10.8) H 12/14/17 04:50 RBC 3.10 Mil/cmm (3.80-5.80) L 12/14/17 04:50 Hgb 9.5 gm/dL (12-16) L 12/14/17 04:50 Hct 27.9 % (41.0-60) L 12/14/17 04:50 MCV 89.8 fl (80-99) 12/14/17 04:50 MCH 30.5 pg (27.0-31.0) 12/14/17 04:50 MCHC Differential 33.9 pg (28.0-36.0) 12/14/17 04:50 RDW 13.6 % (11.5-20.0) 12/14/17 04:50 Plt Count 176 Th/cmm (150-400) 12/14/17 04:50 MPV 9.8 fl 12/14/17 04:50 Neutrophils % 68.7 % (40.0-80.0) 12/13/17 04:30 Lymphocytes % 14.5 % (20.0-50.0) L 12/13/17 04:30 Monocytes % 9.0 % (2.0-10.0) 12/13/17 04:30 Eosinophils % 7.6 % (0.0-5.0) H 12/13/17 04:30 Basophils % 0.2 % (0.0-2.0) 12/13/17 04:30 Neutrophils (Manual) 92 % (40-80) H 12/14/17 04:50 Lymphocytes 6 % (20-50) L 12/14/17 04:50 Monocytes 2 % (2-10) 12/14/17 04:50 Platelet Estimate ADEQUATE (NORMAL) 12/14/17 04:50 Eos Smear Source URINE 12/14/17 05:20 Eos Smear Total Cells FEW EOSINOPHILS SEEN (NONE SEEN) 12/14/17 05:20 PT 11.1 SECONDS (9.5-11.5) 12/13/17 04:30 INR 1.07 (0.5-1.4) 12/13/17 04:30 PTT (Actin FS) 30.7 SECONDS (26.0-38.0) 12/13/17 04:30 Sodium 135 mEq/L (136-145) L 12/14/17 04:50 Potassium 5.8 mEq/L (3.5-5.1) H 12/14/17 04:50 Chloride 99 mEq/L (98-107) 12/14/17 04:50 Carbon Dioxide 23.3 mEq/L (21.0-31.0) 12/14/17 04:50 Anion Gap 18.5 (7.0-16.0) H 12/14/17 04:50 BUN 155 mg/dL (7-25) H* 12/14/17 04:50 Creatinine 7.6 mg/dL (0.7-1.3) H* 12/14/17 04:50 Est GFR ( Amer) TNP 12/14/17 04:50 Est GFR (Non-Af Amer) TNP 12/14/17 04:50 BUN/Creatinine Ratio 20.4 12/14/17 04:50 Glucose 304 mg/dL (70-105) H 12/14/17 04:50 POC Glucose 157 MG/DL (70 - 105) H 12/14/17 12:25 Hemoglobin A1c % 5.4 % (4.0-6.0) 12/13/17 04:30 Uric Acid 3.3 mg/dL (4.4-7.6) L 12/14/17 04:50 Calcium 7.8 mg/dL (8.6-10.3) L 12/14/17 04:50 Phosphorus 8.3 mg/dL (2.5-5.0) H 12/14/17 04:50 Magnesium 2.9 mg/dL (1.9-2.7) H 12/14/17 04:50 Total Bilirubin 0.4 mg/dL (0.3-1.0) 12/13/17 04:30 AST 18 U/L (13-39) 12/13/17 04:30 ALT 10 U/L (7-52) 12/13/17 04:30 Alkaline Phosphatase 42 U/L (34-104) 12/13/17 04:30 Ammonia 36 umol/L (16-53) 12/14/17 04:50 B-Natriuretic Peptide 945.0 pg/mL (5.0-100.0) H 12/13/17 04:30 Total Protein 5.8 gm/dL (6.0-8.3) L 12/13/17 04:30 Albumin 2.6 gm/dL (4.2-5.5) L 12/13/17 04:30 Globulin 3.2 gm/dL 12/13/17 04:30 Albumin/Globulin Ratio 0.8 (1.0-1.8) L 12/13/17 04:30 TSH 5.98 uIU/ml (0.34-5.60) H 12/12/17 20:32 Urine Source CATH 12/13/17 13:00 Urine Color RED 12/13/17 13:00 Urine Clarity SLIGHT CLOUDY (CLEAR) 12/13/17 13:00 Urine pH 7.5 (4.6 - 8.0) 12/13/17 13:00 Ur Specific [place] 1.015 (1.005-1.030) 12/13/17 13:00 Urine Protein 100 mg/dL (NEGATIVE) H 12/13/17 13:00 Urine Glucose (UA) NEGATIVE mg/dL (NEGATIVE) 12/13/17 13:00 Urine Ketones NEGATIVE mg/dL (NEGATIVE) 12/13/17 13:00 Urine Blood LARGE (NEGATIVE) H 12/13/17 13:00 Urine Nitrate NEGATIVE (NEGATIVE) 12/13/17 13:00 Urine Bilirubin NEGATIVE (NEGATIVE) 12/13/17 13:00 Urine Urobilinogen 0.2 E.U./dL (0.2 - 1.0) 12/13/17 13:00 Ur Leukocyte Esterase TRACE (NEGATIVE) H 12/13/17 13:00 Urine RBC 50-100 /hpf (0-5) H 12/13/17 13:00 Urine WBC 2-5 /hpf (0-5) 12/13/17 13:00 Ur Epithelial Cells OCCASIONAL /lpf (FEW) 12/13/17 13:00 Urine Bacteria OCCASIONAL /hpf (NONE SEEN) 12/13/17 13:00 Ur Random Sodium 80 mmol/L 12/14/17 05:20 Urine Creatinine 21.8 mg/dl (39.0-259.0) L 12/14/17 05:20 - Physical Exam Vitals and I&O: Vital Signs Temp 98.0 F 12/14/17 04:00 Pulse 73 12/14/17 14:47 Resp 11 12/14/17 14:47 BP 130/80 12/14/17 06:00 Pulse Ox 96 12/14/17 14:47 Intake & Output 12/13/17 12/14/17 12/14/17 18:59 06:59 18:59 Intake Total 2100.066 1879.493 Output Total 471 500 Balance 8502.122 7363.493 Weight (lbs) 78.642 kg 72.575 kg Intake: Intake, IV Amount 6573.465 8119.493 Albumin 25% 12.5gm/50mL 100 12.5 gm In 50 ml @ 50 mls /hr IV Q8H ON LICENSE OF [facility] Rx#: [id number] D5-0.9%Ns 1,000 ml @ 125 1000 mls/hr IV .Q8H ON LICENSE OF [facility] Rx#: [id number] D5-0.9%Ns 1,000 ml @ 70 1000 mls/hr IV .[id number] ON LICENSE OF [facility] Rx #:[id number] DOPamine 400 mg In 250 ml 131.853 @ 3 MCG/KG/MIN 8.114 mls /hr IV TITR PRN Rx#: [id number] Norepinephrine 4 mg In 20.066 167.64 Dextrose 5% 250 ml @ Per Protocol IV TITR PRN Rx#: [id number] Piperacillin Sodium/ 100 Tazobact 2.25 gm In Sodium Chloride 0.9% 100 ml @ 100 mls/hr IV Q8HR ON LICENSE OF [facility] Rx#:[id number] Piperacillin Sodium/ 100 Tazobact 2.25 gm In Sodium Chloride 0.9% 50 ml @ 100 mls/hr IV Q8HR ON LICENSE OF [facility] Rx#:[id number] Tube Feeding 480 330 Other 300 150 Output: Urine 470 500 Stool 1 Other: # Bowel Movements 1 0 Active Medications: Current Medications Acetaminophen (Tylenol) 650 mg GT Q4HR PRN PRN Reason: Pain or Fever >101 Stop: 02/10/18 22:29 Albuterol/Ipratropium (Duoneb Neb) 3 ml HHN Q4HRT ON LICENSE OF [facility] Stop: 02/10/18 22:59 Last Admin: 12/14/17 14:45 Dose: 3 ml Ascorbic Acid (Vitamin C) 500 mg GT DAILY [facility] Stop: 02/11/18 10:59 Last Admin: 12/14/17 09:23 Dose: 500 mg Bisacodyl (Dulcolax 10 Mg Supp) 10 mg RC DAILY PRN PRN Reason: Constipation Stop: 02/10/18 22:29 Haloperidol (Haldol) 1 mg PO Q6HR PRN; Protocol PRN Reason: Agitation Stop: 02/12/18 17:59 Norepinephrine Bitartrate 4 mg (/ Dextrose) 254 mls @ 0 mls/hr IV TITR PRN; Protocol; Per Protocol PRN Reason: To Keep SBP Above 90 Stop: 02/10/18 22:33 Last Titration: 12/14/17 01:30 Dose: 0 mcg/min, 0 mls/hr Dopamine HCl/Dextrose (Dopamine) 400 mg in 250 mls @ 8.114 mls/hr IV TITR PRN; 3 MCG/KG/MIN PRN Reason: RENAL PERFUSION Stop: 02/11/18 13:09 Last Infusion: 12/14/17 06:00 Dose: 3 mcg/kg/min, 8.114 mls/hr Piperacillin Sod/Tazobactam (Sod 2.25 gm/ Sodium Chloride) 50 mls @ 100 mls/hr IV Q8HR [facility] Stop: 02/11/18 04:59 Last Infusion: 12/14/17 05:30 Dose: Infused Dextrose/Sodium Chloride (D5-0.45ns) 1,000 mls @ 80 mls/hr IV .[id number] ON LICENSE OF [facility] Stop: 02/12/18 14:44 Insulin Aspart (Novolog) 0 units SUBQ ACHS [facility] PRN Reason: Protocol Stop: 02/11/18 07:29 Last Admin: 12/14/17 12:32 Dose: Not Given Lactobacillus Rhamnosus (Culturelle 15b) 1 each PO DAILY [facility] Stop: 02/12/18 08:59 Last Admin: 12/14/17 09:23 Dose: 1 each Levothyroxine Sodium (Synthroid) 0.05 mg PO QDAC [facility] Stop: 02/12/18 07:29 Lorazepam (Ativan) 0.5 mg GT Q6HR PRN; Protocol PRN Reason: Anxiety Stop: 02/10/18 22:29 Last Admin: 12/14/17 09:23 Dose: 0.5 mg Lorazepam (Ativan) 0.5 mg IV Q6H PRN; Protocol PRN Reason: Agitation Stop: 02/12/18 14:40 Methylprednisolone Sodium Succinate (Solu-Medrol) 60 mg IVP Q8HR [facility] Stop: 02/11/18 16:14 Last Admin: 12/14/17 05:00 Dose: 60 mg Miscellaneous (Vte Chemical Prophylaxis Screen/ Admission) 1 ea PRN PRN PRN Reason: PROTOCOL Stop: 02/11/18 15:50 Miscellaneous (Probiotic Screen) 1 ea PRN PRN PRN Reason: PROTOCOL Stop: 02/11/18 17:23 Ondansetron HCl (Zofran) 4 mg IVP Q6H PRN PRN Reason: Nausea / Vomiting Stop: 02/10/18 22:25 Pantoprazole Sodium (Protonix) 40 mg GT DAILY [facility] Stop: 02/11/18 08:59 Last Admin: 12/14/17 09:23 Dose: 40 mg Sodium Phosphate (Fleet Enema) 135 ml RC Q72HR PRN PRN Reason: Constipation Stop: 02/10/18 22:29 Sodium Polystyrene Sulfonate (Kayexalate) 60 gm PO X1 ONE Stop: 12/14/17 14:35 General: No acute distress HEENT: Atraumatic, EOMI, Mucous membr. moist/pink Neck: Supple Cardiovascular: Regular rate, Normal S1, Normal S2 Lungs: Other (few rhonchi) Abdomen: Bowel sounds, Soft Extremities: no Edema Neurological: Sensation intact Skin: no Rash Psych/Mental Status: Other (confused) Assessment/Plan - Assessment Assessment: DANIEL Excerbation COPD Severe Malnutrition Hx Nasopharyngeal CA S/P CVA CAD Ess HTN Anemia CD - Plan Plan: Lab - Result Diagrams 12/14/17 04:50 12/14/17 04:50 Current Medications Acetaminophen (Tylenol) 650 mg GT Q4HR PRN PRN Reason: Pain or Fever >101 Stop: 02/10/18 22:29 Albuterol/Ipratropium (Duoneb Neb) 3 ml HHN Q4HRT [facility] Stop: 02/10/18 22:59 Last Admin: 12/14/17 14:45 Dose: 3 ml Ascorbic Acid (Vitamin C) 500 mg GT DAILY [facility] Stop: 02/11/18 10:59 Last Admin: 12/14/17 09:23 Dose: 500 mg Bisacodyl (Dulcolax 10 Mg Supp) 10 mg RC DAILY PRN PRN Reason: Constipation Stop: 02/10/18 22:29 Haloperidol (Haldol) 1 mg PO Q6HR PRN; Protocol PRN Reason: Agitation Stop: 02/12/18 17:59 Norepinephrine Bitartrate 4 mg (/ Dextrose) 254 mls @ 0 mls/hr IV TITR PRN; Protocol; Per Protocol PRN Reason: To Keep SBP Above 90 Stop: 02/10/18 22:33 Last Titration: 12/14/17 01:30 Dose: 0 mcg/min, 0 mls/hr Dopamine HCl/Dextrose (Dopamine) 400 mg in 250 mls @ 8.114 mls/hr IV TITR PRN; 3 MCG/KG/MIN PRN Reason: RENAL PERFUSION Stop: 02/11/18 13:09 Last Infusion: 12/14/17 06:00 Dose: 3 mcg/kg/min, 8.114 mls/hr Piperacillin Sod/Tazobactam (Sod 2.25 gm/ Sodium Chloride) 50 mls @ 100 mls/hr IV Q8HR [facility] Stop: 02/11/18 04:59 Last Infusion: 12/14/17 05:30 Dose: Infused Dextrose/Sodium Chloride (D5-0.45ns) 1,000 mls @ 80 mls/hr IV .[id number] [facility] Stop: 02/12/18 14:44 Insulin Aspart (Novolog) 0 units SUBQ ACHS [facility] PRN Reason: Protocol Stop: 02/11/18 07:29 Last Admin: 12/14/17 12:32 Dose: Not Given Lactobacillus Rhamnosus (Culturelle 15b) 1 each PO DAILY [facility] Stop: 02/12/18 08:59 Last Admin: 12/14/17 09:23 Dose: 1 each Levothyroxine Sodium (Synthroid) 0.05 mg PO QDAC [facility] Stop: 02/12/18 07:29 Lorazepam (Ativan) 0.5 mg GT Q6HR PRN; Protocol PRN Reason: Anxiety Stop: 02/10/18 22:29 Last Admin: 12/14/17 09:23 Dose: 0.5 mg Lorazepam (Ativan) 0.5 mg IV Q6H PRN; Protocol PRN Reason: Agitation Stop: 02/12/18 14:40 Methylprednisolone Sodium Succinate (Solu-Medrol) 60 mg IVP Q8HR AYAN Stop: 02/11/18 16:14 Last Admin: 12/14/17 05:00 Dose: 60 mg Miscellaneous (Vte Chemical Prophylaxis Screen/ Admission) 1 ea PRN PRN PRN Reason: PROTOCOL Stop: 02/11/18 15:50 Miscellaneous (Probiotic Screen) 1 ea PRN PRN PRN Reason: PROTOCOL Stop: 02/11/18 17:23 Ondansetron HCl (Zofran) 4 mg IVP Q6H PRN PRN Reason: Nausea / Vomiting Stop: 02/10/18 22:25 Pantoprazole Sodium (Protonix) 40 mg GT DAILY AYAN Stop: 02/11/18 08:59 Last Admin: 12/14/17 09:23 Dose: 40 mg Sodium Phosphate (Fleet Enema) 135 ml RC Q72HR PRN PRN Reason: Constipation Stop: 02/10/18 22:29 Sodium Polystyrene Sulfonate (Kayexalate) 60 gm PO X1 ONE Stop: 12/14/17 14:35 Lab - Result Diagrams 12/14/17 04:50 12/14/17 04:50 Kidney fnc slightly better administer Kayexalate via NGT resp status better f/u electrolytes, cbc Nutritional Asmnt/Malnutr-PDOC - Dietary Evaluation Malnutrition Findings (Please click <Entered> for more info): Nutritional Asmnt/Malnutrition Start: 12/13/17 14: 43 Text: Status: Complete Freq: Document 12/13/17 14:43 LCHENG (Rec: 12/13/17 14:54 LCHENG JOSE [email or web address]) Nutritional Asmnt/Malnutrition Patient General Information Nutritional Screening High Risk Diagnosis hypotension, acute renal failure Pertinent Medical Hx/Surgical Hx HTN, CAD, asthma/COPD, nasopharyngeal neoplasm, anxiety, PEG-Gtube Subjective Information Pt seen lying in bed, confused . Verified TF running at 30ml/ hr at time of visit. Per nurse note 3/2, no residual noted. Current Diet Order/ Nutrition Support Novosource Renal 30ml/hr x 20hr Pertinent Medications Vit C, d5-0.9%ns, dopamine, novolog, protonix, piperacillin Pertinent Labs 3/2 na 141, K 5.0, Cl 101, BUN 163, Cr 8.1, Glucose 123, POC 123-134, Ca 7.9 Nutritional Hx/Data Height 1.57 m Height (Calculated Centimeters) 157.5 Current Weight (lbs) 72.121 kg Weight (Calculated Kilograms) 72.1 Weight (Calculated Grams) 36418.2 [place] Body Weight 118 % [place] Body Weight 135 Body Mass Index (BMI) 29.0 Weight Status Overweight GI Symptoms GI Symptoms None Last BM 3/2 Difficult in: None Skin Integrity/Comment: rash to left leg, bruise to right and left arm Estimated Nutritional Goals BEE in Kcals: Using Current wt Calories/Kcals/Kg 25-30 Kcals Calculated 5338-7642 Protein: Using Current wt Protein g/k.8-1 considering renal labs Protein Calculated 45-56 Fluid: ml per MD considering acute renal failure Nutritional Problem 1. Problem Problem altered nutrition related lab values Etiology dx of acute renal failure, hx of DM Signs/Symptoms: BUN 163, Cr 8.1, Glucose 123, POC 123-134 Malnutrition Alert Protein-Calorie Malnutrition N/A Is there a minimum of two criteria No selected? Query Text:Check all the applicable criteria. A minimum of two criteria are recommended for diagnosis of either severe or non-severe malnutrition. Intervention/Recommendation Comments 1. Continue with current TF regimen. It provides 1200kcal, 54g protein, 430ml free water , meeting 100% of nutritional needs 2. Monitor TF rate, tolerance, wt weekly, skin integrity and labs 3. F/U as high risk in 2-3 days, 3/4-3/5 Expected Outcomes/Goals Expected Outcomes/Goals 1. Pt to meet at least 75% of nutritional needs via nutrition support with tolerance 2. Wt stability, skin to remain intact, labs to approach WNL.
--- NOTE | 2017-12-14 16:20 | Consultation ---
DATE OF CONSULTATION: 12/14/2017 REQUESTING PHYSICIAN: Dr. Urbina. REASON FOR CONSULTATION: Agitation and psychosis. HISTORY OF PRESENT ILLNESS: This patient is a 77-year-old male admitted over here for altered level of mental status and worsening of kidney function and a psychiatric consultation is called to address the issue of the patient's behavior. Chart is reviewed. The patient is interviewed. During the interview, the patient is not able to provide any information. The patient has been screaming and yelling. Coping skills at the time of the hospitalization are also noted to be very poor. Staff are reporting that the patient has been resorting into agitated behavior. The patient has been placed on Ativan on a p.r.n. dosing at this time. PAST PSYCHIATRIC HISTORY: Details are not known. MEDICAL HISTORY: Significant for nasopharyngeal carcinoma diagnosed in 2014, and the patient has undergone chemotherapy as well as radiation. The patient also has a history of CVA, COPD and coronary artery disease, essential hypertension. SEXUAL ABUSE HISTORY: None. MENTAL EXAMINATION: The patient is a 77-year-old, looking his stated age, superficially cooperative. Eye contact is poor. Mood is noted to be irritable. Affect is constricted. Insight and judgment at this time are noted to be very much impaired. Impulse control seems to be limited. Coping skills are noted to be limited. The patient has been having difficult time to cope with the stress. The patient is screaming and yelling at this time and is not able to give any reasonable information. The patient short and long-term memory could not be tested because the patient is not able to provide much of any information. The patient at this time is grossly agitated and psychotic. DIAGNOSTIC IMPRESSION: Rule out delirium secondary to medical condition. PLAN: To use the haloperidol on a p.r.n. basis and follow the patient with the supportive therapy. Thank you, Dr. Urbina for allowing me to participate in the care of the patient. [facility]# [id number]
[2017-12-14] MEDS: D5-0.45NS 1,000 ML IV SCH (18:04)
[2017-12-14] MEDS: DOPamine 400 MG/250 ML BAG IV PRN (19:50)
[2017-12-15] MEDS: Albuterol/Ipratropium Neb 3 ML AERS HHN SCH ×6 (03:07→23:15)
[2017-12-15] MEDS: methylPREDNISolone SS 40 mg Vial IVP SCH ×3 (05:36→21:07)
[2017-12-15 05:51] LABS: ANION GAP 20.4 (7.0-16.0); CARBON DIOXIDE 24.2 mEq/L (21.0-31.0); CHLORIDE 103 mEq/L (98-107); POTASSIUM SERUM 4.6 mEq/L (3.5-5.1); SODIUM SERUM 143 mEq/L (136-145)
[2017-12-15 06:05] LABS: MANUAL DIFF REQUIRED? YES; MEAN CORPUSCULAR HEMOGLOBIN 30.8 pg (27.0-31.0); MONOCYTE ABSOLUTE 0.3 Th/cmm (0.3-1.0)
[2017-12-15 06:07] LABS: % BASOPHILS 0.1 % (0.0-2.0); % EOSINOPHILS 0.2 % (0.0-5.0); % NEUTROPHILS 92.7 % (40.0-80.0); HEMATOCRIT 26.4 % (41.0-60); HEMOGLOBIN 9.1 gm/dL (12-16); LYMPHOCYTE ABSOLUTE 0.9 Th/cmm (1.5-3.0); MEAN CELL VOLUME 89.7 fl (80-99); MEAN CORPUSCULAR HGB CONC 34.3 pg (28.0-36.0); NEUTROPHILE ABSOLUTE 15.9 Th/cmm (1.8-8.0); PLATELET COUNT 196 Th/cmm (150-400); RED BLOOD COUNT 2.95 Mil/cmm (3.80-5.80); RED CELL DISTRIBUTION WIDTH 13.6 % (11.5-20.0)
[2017-12-15 06:41] LABS: WHITE BLOOD COUNT 17.1 Th/cmm (4.8-10.8)
[2017-12-15] MEDS: INSULIN ASPART, RECOMBINANT 100 UNITS/ML SUBQ SCH ×4 (07:12→21:11)
[2017-12-15] MEDS: Levothyroxine 0.05 Mg Tab PO SCH (07:14)
[2017-12-15 08:23] LABS: BUN - UREA NITROGEN 162 mg/dL (7-25); CREATININE - SERUM 7.8 mg/dL (0.7-1.3)
[2017-12-15 08:24] LABS: GLUCOSE 187 mg/dL (70-105)
[2017-12-15] MEDS: Multivitamin w/ Minerals Tab GT SCH (08:59)
[2017-12-15] MEDS: Lactobacillus Rhamnosus GG 15 Billion CFU CAP.SPRINK PO SCH (09:00)
[2017-12-15] MEDS: D5-0.45NS 1,000 ML IV SCH ×2 (09:00→22:00)
[2017-12-15] MEDS: Pantoprazole 40 mg/Packet GT SCH (09:00)
[2017-12-15 10:09] LABS: CREATININEURINE 22.2 mg/dL (Not Estab.); MICROALBUMIN RANDOM RUINE 342.3 ug/mL (Not Estab.)
--- NOTE | 2017-12-15 10:20 | Diagnostic Imaging Report ---
Portable chest x-ray HISTORY: Shortness of breath, nasogastric tube placement Compared with prior exam of December 12, 2017, nasogastric tube has been inserted. The tip projects over the gastric area. The heart is enlarged. Accentuation of interstitial lung markings. IMPRESSION: 1. Nasogastric tube placement as noted above
--- NOTE | 2017-12-15 15:22 | General Progress Note ---
Subjective - Review of Systems Service Date: 12/15/17 Subjective: awake, agitated, screaming Objective - Results Result Diagrams: 12/15/17 04:40 12/15/17 04:40 Recent Labs: Laboratory Last Values WBC 17.1 Th/cmm (4.8-10.8) H D 12/15/17 04:40 RBC 2.95 Mil/cmm (3.80-5.80) L 12/15/17 04:40 Hgb 9.1 gm/dL (12-16) L 12/15/17 04:40 Hct 26.4 % (41.0-60) L 12/15/17 04:40 MCV 89.7 fl (80-99) 12/15/17 04:40 MCH 30.8 pg (27.0-31.0) 12/15/17 04:40 MCHC Differential 34.3 pg (28.0-36.0) 12/15/17 04:40 RDW 13.6 % (11.5-20.0) 12/15/17 04:40 Plt Count 196 Th/cmm (150-400) 12/15/17 04:40 MPV 10.0 fl 12/15/17 04:40 Neutrophils % 92.7 % (40.0-80.0) H 12/15/17 04:40 Lymphocytes % 5.0 % (20.0-50.0) L 12/15/17 04:40 Monocytes % 2.0 % (2.0-10.0) 12/15/17 04:40 Eosinophils % 0.2 % (0.0-5.0) 12/15/17 04:40 Basophils % 0.1 % (0.0-2.0) 12/15/17 04:40 Neutrophils (Manual) 92 % (40-80) H 12/14/17 04:50 Lymphocytes 6 % (20-50) L 12/14/17 04:50 Monocytes 2 % (2-10) 12/14/17 04:50 Platelet Estimate ADEQUATE (NORMAL) 12/14/17 04:50 Eos Smear Source URINE 12/14/17 05:20 Eos Smear Total Cells FEW EOSINOPHILS SEEN (NONE SEEN) 12/14/17 05:20 PT 11.1 SECONDS (9.5-11.5) 12/13/17 04:30 INR 1.07 (0.5-1.4) 12/13/17 04:30 PTT (Actin FS) 30.7 SECONDS (26.0-38.0) 12/13/17 04:30 Sodium 143 mEq/L (136-145) 12/15/17 04:40 Potassium 4.6 mEq/L (3.5-5.1) 12/15/17 04:40 Chloride 103 mEq/L (98-107) 12/15/17 04:40 Carbon Dioxide 24.2 mEq/L (21.0-31.0) 12/15/17 04:40 Anion Gap 20.4 (7.0-16.0) H 12/15/17 04:40 BUN 162 mg/dL (7-25) H* 12/15/17 04:40 Creatinine 7.8 mg/dL (0.7-1.3) H* 12/15/17 04:40 Est GFR ( Amer) TNP 12/15/17 04:40 Est GFR (Non-Af Amer) TNP 12/15/17 04:40 BUN/Creatinine Ratio 20.8 12/15/17 04:40 Glucose 187 mg/dL (70-105) H D 12/15/17 04:40 POC Glucose 174 MG/DL (70 - 105) H 12/15/17 11:56 Hemoglobin A1c % 5.4 % (4.0-6.0) 12/13/17 04:30 Uric Acid 3.3 mg/dL (4.4-7.6) L 12/14/17 04:50 Calcium 8.0 mg/dL (8.6-10.3) L 12/15/17 04:40 Phosphorus 8.3 mg/dL (2.5-5.0) H 12/14/17 04:50 Magnesium 2.9 mg/dL (1.9-2.7) H 12/14/17 04:50 Total Bilirubin 0.4 mg/dL (0.3-1.0) 12/13/17 04:30 AST 18 U/L (13-39) 12/13/17 04:30 ALT 10 U/L (7-52) 12/13/17 04:30 Alkaline Phosphatase 42 U/L (34-104) 12/13/17 04:30 Ammonia 30 umol/L (16-53) 12/15/17 04:40 B-Natriuretic Peptide 945.0 pg/mL (5.0-100.0) H 12/13/17 04:30 Total Protein 5.8 gm/dL (6.0-8.3) L 12/13/17 04:30 Albumin 2.6 gm/dL (4.2-5.5) L 12/13/17 04:30 Globulin 3.2 gm/dL 12/13/17 04:30 Albumin/Globulin Ratio 0.8 (1.0-1.8) L 12/13/17 04:30 TSH 5.98 uIU/ml (0.34-5.60) H 12/12/17 20:32 Urine Source CATH 12/13/17 13:00 Urine Color RED 12/13/17 13:00 Urine Clarity SLIGHT CLOUDY (CLEAR) 12/13/17 13:00 Urine pH 7.5 (4.6 - 8.0) 12/13/17 13:00 Ur Specific [place] 1.015 (1.005-1.030) 12/13/17 13:00 Urine Protein 100 mg/dL (NEGATIVE) H 12/13/17 13:00 Urine Glucose (UA) NEGATIVE mg/dL (NEGATIVE) 12/13/17 13:00 Urine Ketones NEGATIVE mg/dL (NEGATIVE) 12/13/17 13:00 Urine Blood LARGE (NEGATIVE) H 12/13/17 13:00 Urine Nitrate NEGATIVE (NEGATIVE) 12/13/17 13:00 Urine Bilirubin NEGATIVE (NEGATIVE) 12/13/17 13:00 Urine Urobilinogen 0.2 E.U./dL (0.2 - 1.0) 12/13/17 13:00 Ur Leukocyte Esterase TRACE (NEGATIVE) H 12/13/17 13:00 Urine RBC 50-100 /hpf (0-5) H 12/13/17 13:00 Urine WBC 2-5 /hpf (0-5) 12/13/17 13:00 Ur Epithelial Cells OCCASIONAL /lpf (FEW) 12/13/17 13:00 Urine Bacteria OCCASIONAL /hpf (NONE SEEN) 12/13/17 13:00 Ur Random Sodium 80 mmol/L 12/14/17 05:20 Urine Creatinine 22.2 mg/dl (Not Estab.) 12/14/17 07:30 Urine Microalbumin 342.3 ug/mL (Not Estab.) 12/14/17 07:30 - Physical Exam Vitals and I&O: Vital Signs Temp 98.0 F 12/14/17 04:00 Pulse 79 12/15/17 14:28 Resp 12 12/15/17 14:28 BP 130/80 12/14/17 06:00 Pulse Ox 98 12/15/17 14:28 Intake & Output 12/14/17 12/15/17 12/15/17 18:59 06:59 18:59 Intake Total 1262.244 300 Output Total 450 300 Balance 812.244 0 Weight (lbs) 72.575 kg 72.575 kg Intake: Intake, IV Amount 1262.244 D5-0.45NS 1,000 ml @ 80 1000 mls/hr IV .[id number] [facility] Rx #:[id number] DOPamine 400 mg In 250 ml 112.244 @ 3 MCG/KG/MIN 8.114 mls /hr IV TITR PRN Rx#: [id number] Piperacillin Sodium/ 150 Tazobact 2.25 gm In Sodium Chloride 0.9% 50 ml @ 100 mls/hr IV Q8HR [facility] Rx#:[id number] Other 300 Output: Urine 450 300 Other: # Bowel Movements 0 1 Active Medications: Current Medications Acetaminophen (Tylenol) 650 mg GT Q4HR PRN PRN Reason: Pain or Fever >101 Stop: 02/10/18 22:29 Albuterol/Ipratropium (Duoneb Neb) 3 ml HHN Q4HRT [facility] Stop: 02/10/18 22:59 Last Admin: 12/15/17 14:27 Dose: 3 ml Ascorbic Acid (Vitamin C) 500 mg GT DAILY [facility] Stop: 02/11/18 10:59 Last Admin: 12/15/17 09:00 Dose: 500 mg Bisacodyl (Dulcolax 10 Mg Supp) 10 mg RC DAILY PRN PRN Reason: Constipation Stop: 02/10/18 22:29 Haloperidol (Haldol) 1 mg PO Q6HR PRN; Protocol PRN Reason: Agitation Stop: 02/12/18 17:59 Norepinephrine Bitartrate 4 mg (/ Dextrose) 254 mls @ 0 mls/hr IV TITR PRN; Protocol; Per Protocol PRN Reason: To Keep SBP Above 90 Stop: 02/10/18 22:33 Last Titration: 12/14/17 01:30 Dose: 0 mcg/min, 0 mls/hr Dopamine HCl/Dextrose (Dopamine) 400 mg in 250 mls @ 8.114 mls/hr IV TITR PRN; 3 MCG/KG/MIN PRN Reason: RENAL PERFUSION Stop: 02/11/18 13:09 Last Admin: 12/14/17 19:50 Dose: 3 mcg/kg/min, 8.114 mls/hr Piperacillin Sod/Tazobactam (Sod 2.25 gm/ Sodium Chloride) 50 mls @ 100 mls/hr IV Q8HR [facility]AN Stop: 02/11/18 04:59 Last Admin: 12/15/17 12:14 Dose: 100 mls/hr Dextrose/Sodium Chloride (D5-0.45ns) 1,000 mls @ 80 mls/hr IV .[id number] [facility] Stop: 02/12/18 14:44 Last Admin: 12/15/17 09:00 Dose: 80 mls/hr Insulin Aspart (Novolog) 0 units SUBQ ACHS AYAN PRN Reason: Protocol Stop: 02/12/18 16:29 Last Admin: 12/15/17 07:12 Dose: 2 units Lactobacillus Rhamnosus (Culturelle 15b) 1 each PO DAILY [facility] Stop: 02/12/18 08:59 Last Admin: 12/15/17 09:00 Dose: 1 each Levothyroxine Sodium (Synthroid) 0.05 mg PO QDAC [facility]AN Stop: 02/12/18 07:29 Last Admin: 12/15/17 07:14 Dose: 0.05 mg Lorazepam (Ativan) 0.5 mg GT Q6HR PRN; Protocol PRN Reason: Anxiety Stop: 02/10/18 22:29 Last Admin: 12/14/17 09:23 Dose: 0.5 mg Lorazepam (Ativan) 0.5 mg IV Q6H PRN; Protocol PRN Reason: Agitation Stop: 02/12/18 14:40 Last Admin: 12/14/17 16:31 Dose: 0.5 mg Methylprednisolone Sodium Succinate (Solu-Medrol) 60 mg IVP Q8HR AYAN Stop: 02/11/18 16:14 Last Admin: 12/15/17 05:36 Dose: 60 mg Miscellaneous (Vte Chemical Prophylaxis Screen/ Admission) 1 ea MC PRN PRN PRN Reason: PROTOCOL Stop: 02/11/18 15:50 Miscellaneous (Probiotic Screen) 1 ea MC PRN PRN PRN Reason: PROTOCOL Stop: 02/11/18 17:23 Ondansetron HCl (Zofran) 4 mg IVP Q6H PRN PRN Reason: Nausea / Vomiting Stop: 02/10/18 22:25 Pantoprazole Sodium (Protonix) 40 mg GT DAILY [facility] Stop: 02/11/18 08:59 Last Admin: 12/15/17 09:00 Dose: 40 mg Sodium Phosphate (Fleet Enema) 135 ml RC Q72HR PRN PRN Reason: Constipation Stop: 02/10/18 22:29 General: No acute distress HEENT: Atraumatic, EOMI, Mucous membr. moist/pink Neck: Supple Cardiovascular: Regular rate, Normal S1, Normal S2 Lungs: Other (few rhonchi) Abdomen: Bowel sounds, Soft Extremities: no Edema Neurological: Sensation intact Skin: no Rash Psych/Mental Status: Other (confused) Assessment/Plan - Assessment Assessment: DANIEL Excerbation COPD Severe Malnutrition Hx Nasopharyngeal CA S/P CVA CAD Ess HTN Anemia CD Psychosis - Plan Plan: Lab - Result Diagrams 12/14/17 04:50 12/14/17 04:50 Current Medications Acetaminophen (Tylenol) 650 mg GT Q4HR PRN PRN Reason: Pain or Fever >101 Stop: 02/10/18 22:29 Albuterol/Ipratropium (Duoneb Neb) 3 ml HHN Q4HRT [facility] Stop: 02/10/18 22:59 Last Admin: 12/14/17 14:45 Dose: 3 ml Ascorbic Acid (Vitamin C) 500 mg GT DAILY [facility] Stop: 02/11/18 10:59 Last Admin: 12/14/17 09:23 Dose: 500 mg Bisacodyl (Dulcolax 10 Mg Supp) 10 mg RC DAILY PRN PRN Reason: Constipation Stop: 02/10/18 22:29 Haloperidol (Haldol) 1 mg PO Q6HR PRN; Protocol PRN Reason: Agitation Stop: 02/12/18 17:59 Norepinephrine Bitartrate 4 mg (/ Dextrose) 254 mls @ 0 mls/hr IV TITR PRN; Protocol; Per Protocol PRN Reason: To Keep SBP Above 90 Stop: 02/10/18 22:33 Last Titration: 12/14/17 01:30 Dose: 0 mcg/min, 0 mls/hr Dopamine HCl/Dextrose (Dopamine) 400 mg in 250 mls @ 8.114 mls/hr IV TITR PRN; 3 MCG/KG/MIN PRN Reason: RENAL PERFUSION Stop: 02/11/18 13:09 Last Infusion: 12/14/17 06:00 Dose: 3 mcg/kg/min, 8.114 mls/hr Piperacillin Sod/Tazobactam (Sod 2.25 gm/ Sodium Chloride) 50 mls @ 100 mls/hr IV Q8HR AYAN Stop: 02/11/18 04:59 Last Infusion: 12/14/17 05:30 Dose: Infused Dextrose/Sodium Chloride (D5-0.45ns) 1,000 mls @ 80 mls/hr IV .[id number] [facility] Stop: 02/12/18 14:44 Insulin Aspart (Novolog) 0 units SUBQ ACHS AYAN PRN Reason: Protocol Stop: 02/11/18 07:29 Last Admin: 12/14/17 12:32 Dose: Not Given Lactobacillus Rhamnosus (Culturelle 15b) 1 each PO DAILY [facility] Stop: 02/12/18 08:59 Last Admin: 12/14/17 09:23 Dose: 1 each Levothyroxine Sodium (Synthroid) 0.05 mg PO QDAC [facility] Stop: 02/12/18 07:29 Lorazepam (Ativan) 0.5 mg GT Q6HR PRN; Protocol PRN Reason: Anxiety Stop: 02/10/18 22:29 Last Admin: 12/14/17 09:23 Dose: 0.5 mg Lorazepam (Ativan) 0.5 mg IV Q6H PRN; Protocol PRN Reason: Agitation Stop: 02/12/18 14:40 Methylprednisolone Sodium Succinate (Solu-Medrol) 60 mg IVP Q8HR [facility] Stop: 02/11/18 16:14 Last Admin: 12/14/17 05:00 Dose: 60 mg Miscellaneous (Vte Chemical Prophylaxis Screen/ Admission) 1 ea PRN PRN PRN Reason: PROTOCOL Stop: 02/11/18 15:50 Miscellaneous (Probiotic Screen) 1 ea PRN PRN PRN Reason: PROTOCOL Stop: 02/11/18 17:23 Ondansetron HCl (Zofran) 4 mg IVP Q6H PRN PRN Reason: Nausea / Vomiting Stop: 02/10/18 22:25 Pantoprazole Sodium (Protonix) 40 mg GT DAILY [facility] Stop: 02/11/18 08:59 Last Admin: 12/14/17 09:23 Dose: 40 mg Sodium Phosphate (Fleet Enema) 135 ml RC Q72HR PRN PRN Reason: Constipation Stop: 02/10/18 22:29 Sodium Polystyrene Sulfonate (Kayexalate) 60 gm PO X1 ONE Stop: 12/14/17 14:35 Lab - Result Diagrams 12/15/17 04:40 12/15/17 04:40 Kidney fnc worse administer Kayexalate via NGT, K down to 4.6 resp status better f/u electrolytes, cbc Nutritional Asmnt/Malnutr-PDOC - Dietary Evaluation Malnutrition Findings (Please click <Entered> for more info): Nutritional Asmnt/Malnutrition Start: 12/13/17 14: 43 Text: Status: Complete Freq: Document 12/13/17 14:43 LCHENG (Rec: 12/13/17 14:54 LCHENG JOSE [email or web address]) Nutritional Asmnt/Malnutrition Patient General Information Nutritional Screening High Risk Diagnosis hypotension, acute renal failure Pertinent Medical Hx/Surgical Hx HTN, CAD, asthma/COPD, nasopharyngeal neoplasm, anxiety, PEG-Gtube Subjective Information Pt seen lying in bed, confused . Verified TF running at 30ml/ hr at time of visit. Per nurse note 3/2, no residual noted. Current Diet Order/ Nutrition Support Novosource Renal 30ml/hr x 20hr Pertinent Medications Vit C, d5-0.9%ns, dopamine, novolog, protonix, piperacillin Pertinent Labs 3/2 na 141, K 5.0, Cl 101, BUN 163, Cr 8.1, Glucose 123, POC 123-134, Ca 7.9 Nutritional Hx/Data Height 1.57 m Height (Calculated Centimeters) 157.5 Current Weight (lbs) 72.121 kg Weight (Calculated Kilograms) 72.1 Weight (Calculated Grams) 53468.2 [place] Body Weight 118 % [place] Body Weight 135 Body Mass Index (BMI) 29.0 Weight Status Overweight GI Symptoms GI Symptoms None Last BM 3/2 Difficult in: None Skin Integrity/Comment: rash to left leg, bruise to right and left arm Estimated Nutritional Goals BEE in Kcals: Using Current wt Calories/Kcals/Kg 25-30 Kcals Calculated [id number] Protein: Using Current wt Protein g/k.8-1 considering renal labs Protein Calculated 45-56 Fluid: ml per MD considering acute renal failure Nutritional Problem 1. Problem Problem altered nutrition related lab values Etiology dx of acute renal failure, hx of DM Signs/Symptoms: BUN 163, Cr 8.1, Glucose 123, POC 123-134 Malnutrition Alert Protein-Calorie Malnutrition N/A Is there a minimum of two criteria No selected? Query Text:Check all the applicable criteria. A minimum of two criteria are recommended for diagnosis of either severe or non-severe malnutrition. Intervention/Recommendation Comments 1. Continue with current TF regimen. It provides 1200kcal, 54g protein, 430ml free water , meeting 100% of nutritional needs 2. Monitor TF rate, tolerance, wt weekly, skin integrity and labs 3. F/U as high risk in 2-3 days, 3/4-3/5 Expected Outcomes/Goals Expected Outcomes/Goals 1. Pt to meet at least 75% of nutritional needs via nutrition support with tolerance 2. Wt stability, skin to remain intact, labs to approach WNL.
--- NOTE | 2017-12-15 15:31 | Internal Medicine Prog Note ---
Internal Medicine Subjective - Subjective Patient seen and examined:: with staff, chart reviewed, other (still agitated, grand daughter at bedside) Patient is:: awake, verbal, non-interactive, in bed, agitated, confused, congested Patient Complaints of:: congestion Per staff patient has:: no adverse event, no episodes of fall, agitated, combative, tolerating meds Internal Medicine Objective - Results Result Diagrams: 12/15/17 04:40 12/15/17 04:40 Recent Labs: Laboratory Last Values WBC 17.1 Th/cmm (4.8-10.8) H D 12/15/17 04:40 RBC 2.95 Mil/cmm (3.80-5.80) L 12/15/17 04:40 Hgb 9.1 gm/dL (12-16) L 12/15/17 04:40 Hct 26.4 % (41.0-60) L 12/15/17 04:40 MCV 89.7 fl (80-99) 12/15/17 04:40 MCH 30.8 pg (27.0-31.0) 12/15/17 04:40 MCHC Differential 34.3 pg (28.0-36.0) 12/15/17 04:40 RDW 13.6 % (11.5-20.0) 12/15/17 04:40 Plt Count 196 Th/cmm (150-400) 12/15/17 04:40 MPV 10.0 fl 12/15/17 04:40 Neutrophils % 92.7 % (40.0-80.0) H 12/15/17 04:40 Lymphocytes % 5.0 % (20.0-50.0) L 12/15/17 04:40 Monocytes % 2.0 % (2.0-10.0) 12/15/17 04:40 Eosinophils % 0.2 % (0.0-5.0) 12/15/17 04:40 Basophils % 0.1 % (0.0-2.0) 12/15/17 04:40 Neutrophils (Manual) 92 % (40-80) H 12/14/17 04:50 Lymphocytes 6 % (20-50) L 12/14/17 04:50 Monocytes 2 % (2-10) 12/14/17 04:50 Platelet Estimate ADEQUATE (NORMAL) 12/14/17 04:50 Eos Smear Source URINE 12/14/17 05:20 Eos Smear Total Cells FEW EOSINOPHILS SEEN (NONE SEEN) 12/14/17 05:20 PT 11.1 SECONDS (9.5-11.5) 12/13/17 04:30 INR 1.07 (0.5-1.4) 12/13/17 04:30 PTT (Actin FS) 30.7 SECONDS (26.0-38.0) 12/13/17 04:30 Sodium 143 mEq/L (136-145) 12/15/17 04:40 Potassium 4.6 mEq/L (3.5-5.1) 12/15/17 04:40 Chloride 103 mEq/L (98-107) 12/15/17 04:40 Carbon Dioxide 24.2 mEq/L (21.0-31.0) 12/15/17 04:40 Anion Gap 20.4 (7.0-16.0) H 12/15/17 04:40 BUN 162 mg/dL (7-25) H* 12/15/17 04:40 Creatinine 7.8 mg/dL (0.7-1.3) H* 12/15/17 04:40 Est GFR ( Amer) TNP 12/15/17 04:40 Est GFR (Non-Af Amer) TNP 12/15/17 04:40 BUN/Creatinine Ratio 20.8 12/15/17 04:40 Glucose 187 mg/dL (70-105) H D 12/15/17 04:40 POC Glucose 174 MG/DL (70 - 105) H 12/15/17 11:56 Hemoglobin A1c % 5.4 % (4.0-6.0) 12/13/17 04:30 Uric Acid 3.3 mg/dL (4.4-7.6) L 12/14/17 04:50 Calcium 8.0 mg/dL (8.6-10.3) L 12/15/17 04:40 Phosphorus 8.3 mg/dL (2.5-5.0) H 12/14/17 04:50 Magnesium 2.9 mg/dL (1.9-2.7) H 12/14/17 04:50 Total Bilirubin 0.4 mg/dL (0.3-1.0) 12/13/17 04:30 AST 18 U/L (13-39) 12/13/17 04:30 ALT 10 U/L (7-52) 12/13/17 04:30 Alkaline Phosphatase 42 U/L (34-104) 12/13/17 04:30 Ammonia 30 umol/L (16-53) 12/15/17 04:40 B-Natriuretic Peptide 945.0 pg/mL (5.0-100.0) H 12/13/17 04:30 Total Protein 5.8 gm/dL (6.0-8.3) L 12/13/17 04:30 Albumin 2.6 gm/dL (4.2-5.5) L 12/13/17 04:30 Globulin 3.2 gm/dL 12/13/17 04:30 Albumin/Globulin Ratio 0.8 (1.0-1.8) L 12/13/17 04:30 TSH 5.98 uIU/ml (0.34-5.60) H 12/12/17 20:32 Urine Source CATH 12/13/17 13:00 Urine Color RED 12/13/17 13:00 Urine Clarity SLIGHT CLOUDY (CLEAR) 12/13/17 13:00 Urine pH 7.5 (4.6 - 8.0) 12/13/17 13:00 Ur Specific [place] 1.015 (1.005-1.030) 12/13/17 13:00 Urine Protein 100 mg/dL (NEGATIVE) H 12/13/17 13:00 Urine Glucose (UA) NEGATIVE mg/dL (NEGATIVE) 12/13/17 13:00 Urine Ketones NEGATIVE mg/dL (NEGATIVE) 12/13/17 13:00 Urine Blood LARGE (NEGATIVE) H 12/13/17 13:00 Urine Nitrate NEGATIVE (NEGATIVE) 12/13/17 13:00 Urine Bilirubin NEGATIVE (NEGATIVE) 12/13/17 13:00 Urine Urobilinogen 0.2 E.U./dL (0.2 - 1.0) 12/13/17 13:00 Ur Leukocyte Esterase TRACE (NEGATIVE) H 12/13/17 13:00 Urine RBC 50-100 /hpf (0-5) H 12/13/17 13:00 Urine WBC 2-5 /hpf (0-5) 12/13/17 13:00 Ur Epithelial Cells OCCASIONAL /lpf (FEW) 12/13/17 13:00 Urine Bacteria OCCASIONAL /hpf (NONE SEEN) 12/13/17 13:00 Ur Random Sodium 80 mmol/L 12/14/17 05:20 Urine Creatinine 22.2 mg/dl (Not Estab.) 12/14/17 07:30 Urine Microalbumin 342.3 ug/mL (Not Estab.) 12/14/17 07:30 - Physical Exam Vitals and I&O: Vital Signs Temp 98.0 F 12/14/17 04:00 Pulse 79 12/15/17 14:28 Resp 12 12/15/17 14:28 BP 130/80 12/14/17 06:00 Pulse Ox 98 12/15/17 14:28 Intake & Output 12/14/17 12/15/17 12/15/17 18:59 06:59 18:59 Intake Total 1262.244 300 Output Total 450 300 Balance 812.244 0 Weight (lbs) 72.575 kg 72.575 kg Intake: Intake, IV Amount 1262.244 D5-0.45NS 1,000 ml @ 80 1000 mls/hr IV .[id number] [facility] Rx #:[id number] DOPamine 400 mg In 250 ml 112.244 @ 3 MCG/KG/MIN 8.114 mls /hr IV TITR PRN Rx#: [id number] Piperacillin Sodium/ 150 Tazobact 2.25 gm In Sodium Chloride 0.9% 50 ml @ 100 mls/hr IV Q8HR [facility] Rx#:[id number] Other 300 Output: Urine 450 300 Other: # Bowel Movements 0 1 Active Medications: Current Medications Acetaminophen (Tylenol) 650 mg GT Q4HR PRN PRN Reason: Pain or Fever >101 Stop: 02/10/18 22:29 Albuterol/Ipratropium (Duoneb Neb) 3 ml HHN Q4HRT [facility] Stop: 02/10/18 22:59 Last Admin: 12/15/17 14:27 Dose: 3 ml Ascorbic Acid (Vitamin C) 500 mg GT DAILY [facility] Stop: 02/11/18 10:59 Last Admin: 12/15/17 09:00 Dose: 500 mg Bisacodyl (Dulcolax 10 Mg Supp) 10 mg RC DAILY PRN PRN Reason: Constipation Stop: 02/10/18 22:29 Haloperidol (Haldol) 1 mg PO Q6HR PRN; Protocol PRN Reason: Agitation Stop: 02/12/18 17:59 Norepinephrine Bitartrate 4 mg (/ Dextrose) 254 mls @ 0 mls/hr IV TITR PRN; Protocol; Per Protocol PRN Reason: To Keep SBP Above 90 Stop: 02/10/18 22:33 Last Titration: 12/14/17 01:30 Dose: 0 mcg/min, 0 mls/hr Piperacillin Sod/Tazobactam (Sod 2.25 gm/ Sodium Chloride) 50 mls @ 100 mls/hr IV Q8HR [facility] Stop: 02/11/18 04:59 Last Admin: 12/15/17 12:14 Dose: 100 mls/hr Dextrose/Sodium Chloride (D5-0.45ns) 1,000 mls @ 80 mls/hr IV .[id number] [facility] Stop: 02/12/18 14:44 Last Admin: 12/15/17 09:00 Dose: 80 mls/hr Insulin Aspart (Novolog) 0 units SUBQ ACHS [facility] PRN Reason: Protocol Stop: 02/12/18 16:29 Last Admin: 12/15/17 07:12 Dose: 2 units Lactobacillus Rhamnosus (Culturelle 15b) 1 each PO DAILY [facility] Stop: 02/12/18 08:59 Last Admin: 12/15/17 09:00 Dose: 1 each Levothyroxine Sodium (Synthroid) 0.05 mg PO QDAC [facility] Stop: 02/12/18 07:29 Last Admin: 12/15/17 07:14 Dose: 0.05 mg Lorazepam (Ativan) 0.5 mg GT Q6HR PRN; Protocol PRN Reason: Anxiety Stop: 02/10/18 22:29 Last Admin: 12/14/17 09:23 Dose: 0.5 mg Lorazepam (Ativan) 0.5 mg IV Q6H PRN; Protocol PRN Reason: Agitation Stop: 02/12/18 14:40 Last Admin: 12/15/17 15:26 Dose: 0.5 mg Methylprednisolone Sodium Succinate (Solu-Medrol) 60 mg IVP Q8HR [facility] Stop: 02/11/18 16:14 Last Admin: 12/15/17 05:36 Dose: 60 mg Miscellaneous (Vte Chemical Prophylaxis Screen/ Admission) 1 [facility] PRN PRN PRN Reason: PROTOCOL Stop: 02/11/18 15:50 Miscellaneous (Probiotic Screen) 1 [facility] PRN PRN PRN Reason: PROTOCOL Stop: 02/11/18 17:23 Ondansetron HCl (Zofran) 4 mg IVP Q6H PRN PRN Reason: Nausea / Vomiting Stop: 02/10/18 22:25 Pantoprazole Sodium (Protonix) 40 mg GT DAILY [facility] Stop: 02/11/18 08:59 Last Admin: 12/15/17 09:00 Dose: 40 mg Sodium Phosphate (Fleet Enema) 135 ml RC Q72HR PRN PRN Reason: Constipation Stop: 02/10/18 22:29 General: demented, bilateral temporal wasting HEENT: NC/AT, PERRLA Neck: Supple, No JVD Lungs: congested, rales, ronchi Cardiovascular: RRR, Normal S1, Normal S2, with murmur Abdomen: soft, non-tender, globular, +GT, positive bowel sound Extremities: excoriation, contracture, deformity Neurological: no change, unable to follow command, bedbound Internal Medicine Assmt/Plan - Assessment Assessment: hyperkalemia sepsis arf hypotension cva ent ca htn dm copd cad anemia dnr - Plan Plan: cont on iv abx monitor renal function will review renal us dw dr rodriguez will correct lytes stacey rn Nutritional Asmnt/Malnutr-PDOC - Dietary Evaluation Malnutrition Findings (Please click <Entered> for more info): Nutritional Asmnt/Malnutrition Start: 12/13/17 14: 43 Text: Status: Complete Freq: Document 12/13/17 14:43 HEN (Rec: 12/13/17 14:54 LCHENG JOSE ALEJANDRO-FN) Nutritional Asmnt/Malnutrition Patient General Information Nutritional Screening High Risk Diagnosis hypotension, acute renal failure Pertinent Medical Hx/Surgical Hx HTN, CAD, asthma/COPD, nasopharyngeal neoplasm, anxiety, PEG-Gtube Subjective Information Pt seen lying in bed, confused . Verified TF running at 30ml/ hr at time of visit. Per nurse note 3/2, no residual noted. Current Diet Order/ Nutrition Support Novosource Renal 30ml/hr x 20hr Pertinent Medications Vit C, d5-0.9%ns, dopamine, novolog, protonix, piperacillin Pertinent Labs 3/2 na 141, K 5.0, Cl 101, BUN 163, Cr 8.1, Glucose 123, POC 123-134, Ca 7.9 Nutritional Hx/Data Height 1.57 m Height (Calculated Centimeters) 157.5 Current Weight (lbs) 72.121 kg Weight (Calculated Kilograms) 72.1 Weight (Calculated Grams) 07489.2 [place] Body Weight 118 % [place] Body Weight 135 Body Mass Index (BMI) 29.0 Weight Status Overweight GI Symptoms GI Symptoms None Last BM 3/2 Difficult in: None Skin Integrity/Comment: rash to left leg, bruise to right and left arm Estimated Nutritional Goals BEE in Kcals: Using Current wt Calories/Kcals/Kg 25-30 Kcals Calculated 6596-5647 Protein: Using Current wt Protein g/k.8-1 considering renal labs Protein Calculated 45-56 Fluid: ml per MD considering acute renal failure Nutritional Problem 1. Problem Problem altered nutrition related lab values Etiology dx of acute renal failure, hx of DM Signs/Symptoms: BUN 163, Cr 8.1, Glucose 123, POC 123-134 Malnutrition Alert Protein-Calorie Malnutrition N/A Is there a minimum of two criteria No selected? Query Text:Check all the applicable criteria. A minimum of two criteria are recommended for diagnosis of either severe or non-severe malnutrition. Intervention/Recommendation Comments 1. Continue with current TF regimen. It provides 1200kcal, 54g protein, 430ml free water , meeting 100% of nutritional needs 2. Monitor TF rate, tolerance, wt weekly, skin integrity and labs 3. F/U as high risk in 2-3 days, 34-3/5 Expected Outcomes/Goals Expected Outcomes/Goals 1. Pt to meet at least 75% of nutritional needs via nutrition support with tolerance 2. Wt stability, skin to remain intact, labs to approach WNL.
[2017-12-16] MEDS: Albuterol/Ipratropium Neb 3 ML AERS HHN SCH ×5 (02:13→20:47)
[2017-12-16 05:14] LABS: MANUAL DIFF REQUIRED? YES; PLATELET COUNT 166 Th/cmm (150-400)
[2017-12-16 05:23] LABS: MEAN CELL VOLUME 90.4 fl (80-99); MEAN CORPUSCULAR HEMOGLOBIN 30.4 pg (27.0-31.0); MEAN CORPUSCULAR HGB CONC 33.6 pg (28.0-36.0); MEAN PLATELET VOLUME 9.2 fl; RED BLOOD COUNT 2.62 Mil/cmm (3.80-5.80); RED CELL DISTRIBUTION WIDTH 14.1 % (11.5-20.0)
[2017-12-16 05:27] LABS: HEMATOCRIT 23.7 % (41.0-60)
[2017-12-16 05:35] LABS: ANION GAP 20.3 (7.0-16.0); CALCIUM SERUM 7.6 mg/dL (8.6-10.3); CARBON DIOXIDE 23.1 mEq/L (21.0-31.0); CHLORIDE 103 mEq/L (98-107); GLUCOSE 200 mg/dL (70-105); POTASSIUM SERUM 3.4 mEq/L (3.5-5.1); SODIUM SERUM 143 mEq/L (136-145)
[2017-12-16] MEDS: methylPREDNISolone SS 40 mg Vial IVP SCH ×3 (05:59→21:52)
[2017-12-16 06:03] LABS: BUN - UREA NITROGEN 172 mg/dL (7-25); CREATININE - SERUM 7.8 mg/dL (0.7-1.3)
[2017-12-16] MEDS: Levothyroxine 0.05 Mg Tab PO SCH (06:42)
[2017-12-16] MEDS: INSULIN ASPART, RECOMBINANT 100 UNITS/ML SUBQ SCH ×4 (06:45→22:09)
[2017-12-16 08:37] LABS: LYMPHOCYTE 3 % (20-50); MONOCYTE 3 % (2-10); NEUTROPHILS 94 % (40-80); PLATELET ESTIMATE ADEQUATE (NORMAL); TOTAL CELLS COUNTED 100
[2017-12-16] MEDS: Multivitamin w/ Minerals Tab GT SCH (10:42)
[2017-12-16] MEDS: Lactobacillus Rhamnosus GG 15 Billion CFU CAP.SPRINK PO SCH (10:42)
[2017-12-16] MEDS: Pantoprazole 40 mg/Packet GT SCH (10:42)
[2017-12-16] MEDS: D5-0.45NS 1,000 ML IV SCH ×2 (11:03→18:15)
--- NOTE | 2017-12-16 14:13 | General Progress Note ---
Subjective - Review of Systems Service Date: 12/16/17 Subjective: sleeping, more quiet Objective - Results Result Diagrams: 12/16/17 04:50 12/16/17 04:50 Recent Labs: Laboratory Last Values WBC 15.0 Th/cmm (4.8-10.8) H 12/16/17 04:50 RBC 2.62 Mil/cmm (3.80-5.80) L 12/16/17 04:50 Hgb 8.0 gm/dL (12-16) L 12/16/17 04:50 Hct 23.7 % (41.0-60) L D 12/16/17 04:50 MCV 90.4 fl (80-99) 12/16/17 04:50 MCH 30.4 pg (27.0-31.0) 12/16/17 04:50 MCHC Differential 33.6 pg (28.0-36.0) 12/16/17 04:50 RDW 14.1 % (11.5-20.0) 12/16/17 04:50 Plt Count 166 Th/cmm (150-400) 12/16/17 04:50 MPV 9.2 fl 12/16/17 04:50 Neutrophils % 92.7 % (40.0-80.0) H 12/15/17 04:40 Lymphocytes % 5.0 % (20.0-50.0) L 12/15/17 04:40 Monocytes % 2.0 % (2.0-10.0) 12/15/17 04:40 Eosinophils % 0.2 % (0.0-5.0) 12/15/17 04:40 Basophils % 0.1 % (0.0-2.0) 12/15/17 04:40 Neutrophils (Manual) 94 % (40-80) H 12/16/17 04:50 Lymphocytes 3 % (20-50) L 12/16/17 04:50 Monocytes 3 % (2-10) 12/16/17 04:50 Platelet Estimate ADEQUATE (NORMAL) 12/16/17 04:50 Eos Smear Source URINE 12/14/17 05:20 Eos Smear Total Cells FEW EOSINOPHILS SEEN (NONE SEEN) 12/14/17 05:20 PT 11.1 SECONDS (9.5-11.5) 12/13/17 04:30 INR 1.07 (0.5-1.4) 12/13/17 04:30 PTT (Actin FS) 30.7 SECONDS (26.0-38.0) 12/13/17 04:30 Sodium 143 mEq/L (136-145) 12/16/17 04:50 Potassium 3.4 mEq/L (3.5-5.1) L 12/16/17 04:50 Chloride 103 mEq/L (98-107) 12/16/17 04:50 Carbon Dioxide 23.1 mEq/L (21.0-31.0) 12/16/17 04:50 Anion Gap 20.3 (7.0-16.0) H 12/16/17 04:50 BUN 172 mg/dL (7-25) H* 12/16/17 04:50 Creatinine 7.8 mg/dL (0.7-1.3) H* 12/16/17 04:50 Est GFR ( Amer) TNP 12/16/17 04:50 Est GFR (Non-Af Amer) TNP 12/16/17 04:50 BUN/Creatinine Ratio 22.1 12/16/17 04:50 Glucose 200 mg/dL (70-105) H 12/16/17 04:50 POC Glucose 165 MG/DL (70 - 105) H 12/16/17 12:42 Hemoglobin A1c % 5.4 % (4.0-6.0) 12/13/17 04:30 Uric Acid 3.3 mg/dL (4.4-7.6) L 12/14/17 04:50 Calcium 7.6 mg/dL (8.6-10.3) L 12/16/17 04:50 Phosphorus 8.3 mg/dL (2.5-5.0) H 12/14/17 04:50 Magnesium 2.9 mg/dL (1.9-2.7) H 12/14/17 04:50 Total Bilirubin 0.4 mg/dL (0.3-1.0) 12/13/17 04:30 AST 18 U/L (13-39) 12/13/17 04:30 ALT 10 U/L (7-52) 12/13/17 04:30 Alkaline Phosphatase 42 U/L (34-104) 12/13/17 04:30 Ammonia 30 umol/L (16-53) 12/15/17 04:40 B-Natriuretic Peptide 908.0 pg/mL (5.0-100.0) H 12/16/17 04:50 Total Protein 5.8 gm/dL (6.0-8.3) L 12/13/17 04:30 Albumin 2.6 gm/dL (4.2-5.5) L 12/13/17 04:30 Globulin 3.2 gm/dL 12/13/17 04:30 Albumin/Globulin Ratio 0.8 (1.0-1.8) L 12/13/17 04:30 TSH 5.98 uIU/ml (0.34-5.60) H 12/12/17 20:32 Urine Source CATH 12/13/17 13:00 Urine Color RED 12/13/17 13:00 Urine Clarity SLIGHT CLOUDY (CLEAR) 12/13/17 13:00 Urine pH 7.5 (4.6 - 8.0) 12/13/17 13:00 Ur Specific [place] 1.015 (1.005-1.030) 12/13/17 13:00 Urine Protein 100 mg/dL (NEGATIVE) H 12/13/17 13:00 Urine Glucose (UA) NEGATIVE mg/dL (NEGATIVE) 12/13/17 13:00 Urine Ketones NEGATIVE mg/dL (NEGATIVE) 12/13/17 13:00 Urine Blood LARGE (NEGATIVE) H 12/13/17 13:00 Urine Nitrate NEGATIVE (NEGATIVE) 12/13/17 13:00 Urine Bilirubin NEGATIVE (NEGATIVE) 12/13/17 13:00 Urine Urobilinogen 0.2 E.U./dL (0.2 - 1.0) 12/13/17 13:00 Ur Leukocyte Esterase TRACE (NEGATIVE) H 12/13/17 13:00 Urine RBC 50-100 /hpf (0-5) H 12/13/17 13:00 Urine WBC 2-5 /hpf (0-5) 12/13/17 13:00 Ur Epithelial Cells OCCASIONAL /lpf (FEW) 12/13/17 13:00 Urine Bacteria OCCASIONAL /hpf (NONE SEEN) 12/13/17 13:00 Ur Random Sodium 80 mmol/L 12/14/17 05:20 Urine Creatinine 22.2 mg/dl (Not Estab.) 03/03/18 07:30 Urine Microalbumin 342.3 ug/mL (Not Estab.) 12/14/17 07:30 - Physical Exam Vitals and I&O: Vital Signs Temp 98.0 F 12/14/17 04:00 Pulse 69 12/16/17 11:44 Resp 16 12/16/17 11:56 BP 130/80 12/14/17 06:00 Pulse Ox 97 12/16/17 11:44 Intake & Output 12/15/17 12/16/17 12/16/17 18:59 06:59 18:59 Intake Total 1010 1400 1000 Output Total 600 300 Balance 410 1100 1000 Weight (lbs) 72.575 kg 72.575 kg Intake: Intake, IV Amount 50 1100 1000 D5-0.45NS 1,000 ml @ 80 1000 1000 mls/hr IV .[id number] [facility] Rx #:[id number] Piperacillin Sodium/ 50 100 Tazobact 2.25 gm In Sodium Chloride 0.9% 50 ml @ 100 mls/hr IV Q8HR [facility] Rx#:[id number] Tube Feeding 360 Other 600 300 Output: Urine 600 300 Other: # Bowel Movements 0 1 Stool Characteristics Soft Active Medications: Current Medications Acetaminophen (Tylenol) 650 mg GT Q4HR PRN PRN Reason: Pain or Fever >101 Stop: 02/10/18 22:29 Albuterol/Ipratropium (Duoneb Neb) 3 ml HHN Q4HRT [facility] Stop: 02/10/18 22:59 Last Admin: 12/16/17 11:45 Dose: 3 ml Ascorbic Acid (Vitamin C) 500 mg GT DAILY [facility] Stop: 02/11/18 10:59 Last Admin: 12/16/17 10:42 Dose: 500 mg Bisacodyl (Dulcolax 10 Mg Supp) 10 mg RC DAILY PRN PRN Reason: Constipation Stop: 02/10/18 22:29 Haloperidol (Haldol) 1 mg PO Q6HR PRN; Protocol PRN Reason: Agitation Stop: 02/12/18 17:59 Norepinephrine Bitartrate 4 mg (/ Dextrose) 254 mls @ 0 mls/hr IV TITR PRN; Protocol; Per Protocol PRN Reason: To Keep SBP Above 90 Stop: 02/10/18 22:33 Last Titration: 12/14/17 01:30 Dose: 0 mcg/min, 0 mls/hr Piperacillin Sod/Tazobactam (Sod 2.25 gm/ Sodium Chloride) 50 mls @ 100 mls/hr IV Q8HR [facility] Stop: 02/11/18 04:59 Last Admin: 12/16/17 12:48 Dose: 100 mls/hr Dextrose/Sodium Chloride (D5-0.45ns) 1,000 mls @ 40 mls/hr IV .Q24H [facility] Stop: 02/14/18 14:04 Insulin Aspart (Novolog) 0 units SUBQ ACHS [facility] PRN Reason: Protocol Stop: 02/12/18 16:29 Last Admin: 12/16/17 12:44 Dose: Not Given Lactobacillus Rhamnosus (Culturelle 15b) 1 each PO DAILY [facility] Stop: 02/12/18 08:59 Last Admin: 12/16/17 10:42 Dose: 1 each Levothyroxine Sodium (Synthroid) 0.05 mg PO QDAC [facility] Stop: 02/12/18 07:29 Last Admin: 12/16/17 06:42 Dose: 0.05 mg Lorazepam (Ativan) 0.5 mg GT Q6HR PRN; Protocol PRN Reason: Anxiety Stop: 02/10/18 22:29 Last Admin: 12/14/17 09:23 Dose: 0.5 mg Lorazepam (Ativan) 0.5 mg IV Q6H PRN; Protocol PRN Reason: Agitation Stop: 02/12/18 14:40 Last Admin: 12/15/17 15:26 Dose: 0.5 mg Methylprednisolone Sodium Succinate (Solu-Medrol) 60 mg IVP Q8HR [facility] Stop: 02/11/18 16:14 Last Admin: 12/16/17 12:55 Dose: 60 mg Miscellaneous (Vte Chemical Prophylaxis Screen/ Admission) 1 [facility] PRN PRN PRN Reason: PROTOCOL Stop: 02/11/18 15:50 Miscellaneous (Probiotic Screen) 1 [facility] PRN PRN PRN Reason: PROTOCOL Stop: 02/11/18 17:23 Ondansetron HCl (Zofran) 4 mg IVP Q6H PRN PRN Reason: Nausea / Vomiting Stop: 02/10/18 22:25 Pantoprazole Sodium (Protonix) 40 mg GT DAILY [facility] Stop: 02/11/18 08:59 Last Admin: 12/16/17 10:42 Dose: 40 mg Sodium Phosphate (Fleet Enema) 135 ml RC Q72HR PRN PRN Reason: Constipation Stop: 02/10/18 22:29 General: No acute distress HEENT: Atraumatic, EOMI, Mucous membr. moist/pink Neck: Supple Cardiovascular: Regular rate, Normal S1, Normal S2 Lungs: Other (decreased BS) Abdomen: Bowel sounds, Soft Extremities: no Edema Neurological: Sensation intact Skin: no Rash Psych/Mental Status: Mood NL, Other (confused) Assessment/Plan - Assessment Assessment: DANIEL Excerbation COPD Severe Malnutrition Hx Nasopharyngeal CA S/P CVA CAD Ess HTN Anemia CD Psychosis - Plan Plan: Lab - Result Diagrams 12/14/17 04:50 12/14/17 04:50 Current Medications Acetaminophen (Tylenol) 650 mg GT Q4HR PRN PRN Reason: Pain or Fever >101 Stop: 02/10/18 22:29 Albuterol/Ipratropium (Duoneb Neb) 3 ml HHN Q4HRT [facility] Stop: 02/10/18 22:59 Last Admin: 12/14/17 14:45 Dose: 3 ml Ascorbic Acid (Vitamin C) 500 mg GT DAILY [facility] Stop: 02/11/18 10:59 Last Admin: 12/14/17 09:23 Dose: 500 mg Bisacodyl (Dulcolax 10 Mg Supp) 10 mg RC DAILY PRN PRN Reason: Constipation Stop: 02/10/18 22:29 Haloperidol (Haldol) 1 mg PO Q6HR PRN; Protocol PRN Reason: Agitation Stop: 02/12/18 17:59 Norepinephrine Bitartrate 4 mg (/ Dextrose) 254 mls @ 0 mls/hr IV TITR PRN; Protocol; Per Protocol PRN Reason: To Keep SBP Above 90 Stop: 02/10/18 22:33 Last Titration: 12/14/17 01:30 Dose: 0 mcg/min, 0 mls/hr Dopamine HCl/Dextrose (Dopamine) 400 mg in 250 mls @ 8.114 mls/hr IV TITR PRN; 3 MCG/KG/MIN PRN Reason: RENAL PERFUSION Stop: 02/11/18 13:09 Last Infusion: 12/14/17 06:00 Dose: 3 mcg/kg/min, 8.114 mls/hr Piperacillin Sod/Tazobactam (Sod 2.25 gm/ Sodium Chloride) 50 mls @ 100 mls/hr IV Q8HR [facility] Stop: 02/11/18 04:59 Last Infusion: 12/14/17 05:30 Dose: Infused Dextrose/Sodium Chloride (D5-0.45ns) 1,000 mls @ 80 mls/hr IV .[id number] [facility] Stop: 02/12/18 14:44 Insulin Aspart (Novolog) 0 units SUBQ ACHS [facility] PRN Reason: Protocol Stop: 02/11/18 07:29 Last Admin: 12/14/17 12:32 Dose: Not Given Lactobacillus Rhamnosus (Culturelle 15b) 1 each PO DAILY [facility] Stop: 02/12/18 08:59 Last Admin: 12/14/17 09:23 Dose: 1 each Levothyroxine Sodium (Synthroid) 0.05 mg PO QDAC [facility] Stop: 02/12/18 07:29 Lorazepam (Ativan) 0.5 mg GT Q6HR PRN; Protocol PRN Reason: Anxiety Stop: 02/10/18 22:29 Last Admin: 12/14/17 09:23 Dose: 0.5 mg Lorazepam (Ativan) 0.5 mg IV Q6H PRN; Protocol PRN Reason: Agitation Stop: 02/12/18 14:40 Methylprednisolone Sodium Succinate (Solu-Medrol) 60 mg IVP Q8HR [facility] Stop: 02/11/18 16:14 Last Admin: 12/14/17 05:00 Dose: 60 mg Miscellaneous (Vte Chemical Prophylaxis Screen/ Admission) 1 [facility] PRN PRN PRN Reason: PROTOCOL Stop: 02/11/18 15:50 Miscellaneous (Probiotic Screen) 1 [facility] PRN PRN PRN Reason: PROTOCOL Stop: 02/11/18 17:23 Ondansetron HCl (Zofran) 4 mg IVP Q6H PRN PRN Reason: Nausea / Vomiting Stop: 02/10/18 22:25 Pantoprazole Sodium (Protonix) 40 mg GT DAILY [facility] Stop: 02/11/18 08:59 Last Admin: 12/14/17 09:23 Dose: 40 mg Sodium Phosphate (Fleet Enema) 135 ml RC Q72HR PRN PRN Reason: Constipation Stop: 02/10/18 22:29 Sodium Polystyrene Sulfonate (Kayexalate) 60 gm PO X1 ONE Stop: 12/14/17 14:35 Lab - Result Diagrams 12/16/17 04:50 12/16/17 04:50 Kidney fnc worse K decreased to 3.4 resp status better replace K f/u electrolytes, cbc pt. is DNR Nutritional Asmnt/Malnutr-PDOC - Dietary Evaluation Malnutrition Findings (Please click <Entered> for more info): Nutritional Asmnt/Malnutrition Start: 12/13/17 14: 43 Text: Status: Complete Freq: Document 12/13/17 14:43 LCHENG (Rec: 12/13/17 14:54 LCHENG JOSE [email or web address]) Nutritional Asmnt/Malnutrition Patient General Information Nutritional Screening High Risk Diagnosis hypotension, acute renal failure Pertinent Medical Hx/Surgical Hx HTN, CAD, asthma/COPD, nasopharyngeal neoplasm, anxiety, PEG-Gtube Subjective Information Pt seen lying in bed, confused . Verified TF running at 30ml/ hr at time of visit. Per nurse note 3/2, no residual noted. Current Diet Order/ Nutrition Support Novosource Renal 30ml/hr x 20hr Pertinent Medications Vit C, d5-0.9%ns, dopamine, novolog, protonix, piperacillin Pertinent Labs 3/2 na 141, K 5.0, Cl 101, BUN 163, Cr 8.1, Glucose 123, POC 123-134, Ca 7.9 Nutritional Hx/Data Height 1.57 m Height (Calculated Centimeters) 157.5 Current Weight (lbs) 72.121 kg Weight (Calculated Kilograms) 72.1 Weight (Calculated Grams) 67961.2 [place] Body Weight 118 % [place] Body Weight 135 Body Mass Index (BMI) 29.0 Weight Status Overweight GI Symptoms GI Symptoms None Last BM 3/2 Difficult in: None Skin Integrity/Comment: rash to left leg, bruise to right and left arm Estimated Nutritional Goals BEE in Kcals: Using Current wt Calories/Kcals/Kg 25-30 Kcals Calculated 5791-1242 Protein: Using Current wt Protein g/k.8-1 considering renal labs Protein Calculated 45-56 Fluid: ml per MD considering acute renal failure Nutritional Problem 1. Problem Problem altered nutrition related lab values Etiology dx of acute renal failure, hx of DM Signs/Symptoms: BUN 163, Cr 8.1, Glucose 123, POC 123-134 Malnutrition Alert Protein-Calorie Malnutrition N/A Is there a minimum of two criteria No selected? Query Text:Check all the applicable criteria. A minimum of two criteria are recommended for diagnosis of either severe or non-severe malnutrition. Intervention/Recommendation Comments 1. Continue with current TF regimen. It provides 1200kcal, 54g protein, 430ml free water , meeting 100% of nutritional needs 2. Monitor TF rate, tolerance, wt weekly, skin integrity and labs 3. F/U as high risk in 2-3 days, 12/15-/5 Expected Outcomes/Goals Expected Outcomes/Goals 1. Pt to meet at least 75% of nutritional needs via nutrition support with tolerance 2. Wt stability, skin to remain intact, labs to approach WNL.
[2017-12-16] MEDS ORDERED: Potassium Chloride 20 mEq ER Tab PO ONE ×2 (14:14→14:15)
--- NOTE | 2017-12-16 15:05 | Internal Medicine Prog Note ---
Internal Medicine Subjective - Subjective Patient seen and examined:: with staff, chart reviewed Patient is:: awake, verbal, non-interactive, in bed, agitated, confused, congested Patient Complaints of:: congestion Per staff patient has:: no adverse event, no episodes of fall, agitated, combative, tolerating meds Internal Medicine Objective - Results Result Diagrams: 12/16/17 04:50 12/16/17 04:50 Recent Labs: Laboratory Last Values WBC 15.0 Th/cmm (4.8-10.8) H 12/16/17 04:50 RBC 2.62 Mil/cmm (3.80-5.80) L 12/16/17 04:50 Hgb 8.0 gm/dL (12-16) L 12/16/17 04:50 Hct 23.7 % (41.0-60) L D 12/16/17 04:50 MCV 90.4 fl (80-99) 12/16/17 04:50 MCH 30.4 pg (27.0-31.0) 12/16/17 04:50 MCHC Differential 33.6 pg (28.0-36.0) 12/16/17 04:50 RDW 14.1 % (11.5-20.0) 12/16/17 04:50 Plt Count 166 Th/cmm (150-400) 12/16/17 04:50 MPV 9.2 fl 12/16/17 04:50 Neutrophils % 92.7 % (40.0-80.0) H 12/15/17 04:40 Lymphocytes % 5.0 % (20.0-50.0) L 12/15/17 04:40 Monocytes % 2.0 % (2.0-10.0) 12/15/17 04:40 Eosinophils % 0.2 % (0.0-5.0) 12/15/17 04:40 Basophils % 0.1 % (0.0-2.0) 12/15/17 04:40 Neutrophils (Manual) 94 % (40-80) H 12/16/17 04:50 Lymphocytes 3 % (20-50) L 12/16/17 04:50 Monocytes 3 % (2-10) 12/16/17 04:50 Platelet Estimate ADEQUATE (NORMAL) 12/16/17 04:50 Eos Smear Source URINE 12/14/17 05:20 Eos Smear Total Cells FEW EOSINOPHILS SEEN (NONE SEEN) 12/14/17 05:20 PT 11.1 SECONDS (9.5-11.5) 12/13/17 04:30 INR 1.07 (0.5-1.4) 12/13/17 04:30 PTT (Actin FS) 30.7 SECONDS (26.0-38.0) 12/13/17 04:30 Sodium 143 mEq/L (136-145) 12/16/17 04:50 Potassium 3.4 mEq/L (3.5-5.1) L 12/16/17 04:50 Chloride 103 mEq/L (98-107) 12/16/17 04:50 Carbon Dioxide 23.1 mEq/L (21.0-31.0) 12/16/17 04:50 Anion Gap 20.3 (7.0-16.0) H 12/16/17 04:50 BUN 172 mg/dL (7-25) H* 12/16/17 04:50 Creatinine 7.8 mg/dL (0.7-1.3) H* 12/16/17 04:50 Est GFR ( Amer) TNP 12/16/17 04:50 Est GFR (Non-Af Amer) TNP 12/16/17 04:50 BUN/Creatinine Ratio 22.1 12/16/17 04:50 Glucose 200 mg/dL (70-105) H 12/16/17 04:50 POC Glucose 165 MG/DL (70 - 105) H 12/16/17 12:42 Hemoglobin A1c % 5.4 % (4.0-6.0) 12/13/17 04:30 Uric Acid 3.3 mg/dL (4.4-7.6) L 12/14/17 04:50 Calcium 7.6 mg/dL (8.6-10.3) L 12/16/17 04:50 Phosphorus 8.3 mg/dL (2.5-5.0) H 12/14/17 04:50 Magnesium 2.9 mg/dL (1.9-2.7) H 12/14/17 04:50 Total Bilirubin 0.4 mg/dL (0.3-1.0) 12/13/17 04:30 AST 18 U/L (13-39) 12/13/17 04:30 ALT 10 U/L (7-52) 12/13/17 04:30 Alkaline Phosphatase 42 U/L (34-104) 12/13/17 04:30 Ammonia 30 umol/L (16-53) 12/15/17 04:40 B-Natriuretic Peptide 908.0 pg/mL (5.0-100.0) H 12/16/17 04:50 Total Protein 5.8 gm/dL (6.0-8.3) L 12/13/17 04:30 Albumin 2.6 gm/dL (4.2-5.5) L 12/13/17 04:30 Globulin 3.2 gm/dL 12/13/17 04:30 Albumin/Globulin Ratio 0.8 (1.0-1.8) L 12/13/17 04:30 TSH 5.98 uIU/ml (0.34-5.60) H 12/12/17 20:32 Urine Source CATH 12/13/17 13:00 Urine Color RED 12/13/17 13:00 Urine Clarity SLIGHT CLOUDY (CLEAR) 12/13/17 13:00 Urine pH 7.5 (4.6 - 8.0) 12/13/17 13:00 Ur Specific [place] 1.015 (1.005-1.030) 12/13/17 13:00 Urine Protein 100 mg/dL (NEGATIVE) H 12/13/17 13:00 Urine Glucose (UA) NEGATIVE mg/dL (NEGATIVE) 12/13/17 13:00 Urine Ketones NEGATIVE mg/dL (NEGATIVE) 12/13/17 13:00 Urine Blood LARGE (NEGATIVE) H 12/13/17 13:00 Urine Nitrate NEGATIVE (NEGATIVE) 12/13/17 13:00 Urine Bilirubin NEGATIVE (NEGATIVE) 12/13/17 13:00 Urine Urobilinogen 0.2 E.U./dL (0.2 - 1.0) 12/13/17 13:00 Ur Leukocyte Esterase TRACE (NEGATIVE) H 12/13/17 13:00 Urine RBC 50-100 /hpf (0-5) H 12/13/17 13:00 Urine WBC 2-5 /hpf (0-5) 12/13/17 13:00 Ur Epithelial Cells OCCASIONAL /lpf (FEW) 12/13/17 13:00 Urine Bacteria OCCASIONAL /hpf (NONE SEEN) 12/13/17 13:00 Ur Random Sodium 80 mmol/L 12/14/17 05:20 Urine Creatinine 22.2 mg/dl (Not Estab.) 12/14/17 07:30 Urine Microalbumin 342.3 ug/mL (Not Estab.) 12/14/17 07:30 - Physical Exam Vitals and I&O: Vital Signs Temp 98.0 F 12/14/17 04:00 Pulse 69 12/16/17 11:44 Resp 16 12/16/17 11:56 BP 130/80 12/14/17 06:00 Pulse Ox 97 12/16/17 11:44 Intake & Output 12/15/17 12/16/17 12/16/17 18:59 06:59 18:59 Intake Total 1010 1400 1000 Output Total 600 300 Balance 410 1100 1000 Weight (lbs) 72.575 kg 72.575 kg Intake: Intake, IV Amount 50 1100 1000 D5-0.45NS 1,000 ml @ 80 1000 1000 mls/hr IV .[id number] [facility] Rx #:[id number] Piperacillin Sodium/ 50 100 Tazobact 2.25 gm In Sodium Chloride 0.9% 50 ml @ 100 mls/hr IV Q8HR [facility] Rx#:[id number] Tube Feeding 360 Other 600 300 Output: Urine 600 300 Other: # Bowel Movements 0 1 Stool Characteristics Soft Active Medications: Current Medications Acetaminophen (Tylenol) 650 mg GT Q4HR PRN PRN Reason: Pain or Fever >101 Stop: 02/10/18 22:29 Albuterol/Ipratropium (Duoneb Neb) 3 ml HHN Q4HRT [facility] Stop: 02/10/18 22:59 Last Admin: 12/16/17 11:45 Dose: 3 ml Ascorbic Acid (Vitamin C) 500 mg GT DAILY [facility] Stop: 02/11/18 10:59 Last Admin: 12/16/17 10:42 Dose: 500 mg Bisacodyl (Dulcolax 10 Mg Supp) 10 mg RC DAILY PRN PRN Reason: Constipation Stop: 02/10/18 22:29 Haloperidol (Haldol) 1 mg PO Q6HR PRN; Protocol PRN Reason: Agitation Stop: 02/12/18 17:59 Norepinephrine Bitartrate 4 mg (/ Dextrose) 254 mls @ 0 mls/hr IV TITR PRN; Protocol; Per Protocol PRN Reason: To Keep SBP Above 90 Stop: 02/10/18 22:33 Last Titration: 12/14/17 01:30 Dose: 0 mcg/min, 0 mls/hr Piperacillin Sod/Tazobactam (Sod 2.25 gm/ Sodium Chloride) 50 mls @ 100 mls/hr IV Q8HR [facility] Stop: 02/11/18 04:59 Last Admin: 12/16/17 12:48 Dose: 100 mls/hr Dextrose/Sodium Chloride (D5-0.45ns) 1,000 mls @ 40 mls/hr IV .Q24H [facility] Stop: 02/14/18 14:04 Insulin Aspart (Novolog) 0 units SUBQ ACHS [facility] PRN Reason: Protocol Stop: 02/12/18 16:29 Last Admin: 12/16/17 12:44 Dose: Not Given Lactobacillus Rhamnosus (Culturelle 15b) 1 each PO DAILY [facility] Stop: 02/12/18 08:59 Last Admin: 12/16/17 10:42 Dose: 1 each Levothyroxine Sodium (Synthroid) 0.05 mg PO QDAC [facility] Stop: 02/12/18 07:29 Last Admin: 12/16/17 06:42 Dose: 0.05 mg Lorazepam (Ativan) 0.5 mg GT Q6HR PRN; Protocol PRN Reason: Anxiety Stop: 02/10/18 22:29 Last Admin: 12/14/17 09:23 Dose: 0.5 mg Lorazepam (Ativan) 0.5 mg IV Q6H PRN; Protocol PRN Reason: Agitation Stop: 02/12/18 14:40 Last Admin: 12/15/17 15:26 Dose: 0.5 mg Methylprednisolone Sodium Succinate (Solu-Medrol) 60 mg IVP Q8HR [facility] Stop: 02/11/18 16:14 Last Admin: 12/16/17 12:55 Dose: 60 mg Miscellaneous (Vte Chemical Prophylaxis Screen/ Admission) 1 ea PRN PRN PRN Reason: PROTOCOL Stop: 02/11/18 15:50 Miscellaneous (Probiotic Screen) 1 ea PRN PRN PRN Reason: PROTOCOL Stop: 02/11/18 17:23 Ondansetron HCl (Zofran) 4 mg IVP Q6H PRN PRN Reason: Nausea / Vomiting Stop: 02/10/18 22:25 Pantoprazole Sodium (Protonix) 40 mg GT DAILY [facility] Stop: 02/11/18 08:59 Last Admin: 12/16/17 10:42 Dose: 40 mg Sodium Phosphate (Fleet Enema) 135 ml RC Q72HR PRN PRN Reason: Constipation Stop: 02/10/18 22:29 General: demented, bilateral temporal wasting HEENT: NC/AT, PERRLA Neck: Supple, No JVD Lungs: congested, rales, ronchi Cardiovascular: RRR, Normal S1, Normal S2, with murmur Abdomen: soft, non-tender, globular, +GT, positive bowel sound Extremities: excoriation, contracture, deformity Neurological: no change, unable to follow command, bedbound Internal Medicine Assmt/Plan - Assessment Assessment: hyperkalemia sepsis arf hypotension cva ent ca htn dm copd cad anemia dnr - Plan Plan: cont on iv abx monitor renal function will review renal us dw dr rodriguez will correct lytes stacey rn Nutritional Asmnt/Malnutr-PDOC - Dietary Evaluation Malnutrition Findings (Please click <Entered> for more info): Nutritional Asmnt/Malnutrition Start: 12/13/17 14: 43 Text: Status: Complete Freq: Document 12/13/17 14:43 HEN (Rec: 12/13/17 14:54 [email or web address] Nutritional Asmnt/Malnutrition Patient General Information Nutritional Screening High Risk Diagnosis hypotension, acute renal failure Pertinent Medical Hx/Surgical Hx HTN, CAD, asthma/COPD, nasopharyngeal neoplasm, anxiety, PEG-Gtube Subjective Information Pt seen lying in bed, confused . Verified TF running at 30ml/ hr at time of visit. Per nurse note 3/2, no residual noted. Current Diet Order/ Nutrition Support Novosource Renal 30ml/hr x 20hr Pertinent Medications Vit C, d5-0.9%ns, dopamine, novolog, protonix, piperacillin Pertinent Labs 3/2 na 141, K 5.0, Cl 101, BUN 163, Cr 8.1, Glucose 123, POC 123-134, Ca 7.9 Nutritional Hx/Data Height 1.57 m Height (Calculated Centimeters) 157.5 Current Weight (lbs) 72.121 kg Weight (Calculated Kilograms) 72.1 Weight (Calculated Grams) 77510.2 [place] Body Weight 118 % [place] Body Weight 135 Body Mass Index (BMI) 29.0 Weight Status Overweight GI Symptoms GI Symptoms None Last BM 3/2 Difficult in: None Skin Integrity/Comment: rash to left leg, bruise to right and left arm Estimated Nutritional Goals BEE in Kcals: Using Current wt Calories/Kcals/Kg 25-30 Kcals Calculated 9811-6357 Protein: Using Current wt Protein g/k.8-1 considering renal labs Protein Calculated 45-56 Fluid: ml per MD considering acute renal failure Nutritional Problem 1. Problem Problem altered nutrition related lab values Etiology dx of acute renal failure, hx of DM Signs/Symptoms: BUN 163, Cr 8.1, Glucose 123, POC 123-134 Malnutrition Alert Protein-Calorie Malnutrition N/A Is there a minimum of two criteria No selected? Query Text:Check all the applicable criteria. A minimum of two criteria are recommended for diagnosis of either severe or non-severe malnutrition. Intervention/Recommendation Comments 1. Continue with current TF regimen. It provides 1200kcal, 54g protein, 430ml free water , meeting 100% of nutritional needs 2. Monitor TF rate, tolerance, wt weekly, skin integrity and labs 3. F/U as high risk in 2-3 days, 3/4-3/5 Expected Outcomes/Goals Expected Outcomes/Goals 1. Pt to meet at least 75% of nutritional needs via nutrition support with tolerance 2. Wt stability, skin to remain intact, labs to approach WNL.
[2017-12-17] MEDS: Albuterol/Ipratropium Neb 3 ML AERS HHN SCH ×7 (00:17→23:13)
[2017-12-17 05:12] LABS: FOLIC ACID >20.0 ng/mL (>3.0)
[2017-12-17 05:12] LABS: FOLIC ACID >20.0 ng/mL (>3.0)
[2017-12-17 05:30] LABS: HEMOGLOBIN 8.8 gm/dL (12-16); LYMPHOCYTE ABSOLUTE 0.3 Th/cmm (1.5-3.0); MEAN CELL VOLUME 90.8 fl (80-99); MEAN CORPUSCULAR HEMOGLOBIN 30.9 pg (27.0-31.0); MEAN PLATELET VOLUME 9.5 fl; MONOCYTE ABSOLUTE 0.5 Th/cmm (0.3-1.0); PLATELET COUNT 168 Th/cmm (150-400); RED BLOOD COUNT 2.86 Mil/cmm (3.80-5.80); RED CELL DISTRIBUTION WIDTH 14.2 % (11.5-20.0)
[2017-12-17 05:44] LABS: ANION GAP 20.5 (7.0-16.0); CALCIUM SERUM 7.9 mg/dL (8.6-10.3); CARBON DIOXIDE 20.7 mEq/L (21.0-31.0); CHLORIDE 102 mEq/L (98-107); GLUCOSE 201 mg/dL (70-105); MAGNESIUM 2.8 mg/dL (1.9-2.7); POTASSIUM SERUM 3.2 mEq/L (3.5-5.1); SODIUM SERUM 140 mEq/L (136-145)
[2017-12-17 05:47] LABS: BUN - UREA NITROGEN 176 mg/dL (7-25)
[2017-12-17] MEDS: methylPREDNISolone SS 40 mg Vial IVP SCH ×3 (05:47→22:29)
[2017-12-17 05:48] LABS: % NEUTROPHILS 94.4 % (40.0-80.0); CREATININE - SERUM 7.6 mg/dL (0.7-1.3); WHITE BLOOD COUNT 14.8 Th/cmm (4.8-10.8)
[2017-12-17 05:49] LABS: % EOSINOPHILS 0.2 % (0.0-5.0); % LYMPHOCYTES 2.2 % (20.0-50.0); % MONOCYTES 3.2 % (2.0-10.0)
[2017-12-17] MEDS: INSULIN ASPART, RECOMBINANT 100 UNITS/ML SUBQ SCH ×4 (10:30→22:30)
[2017-12-17] MEDS: Multivitamin w/ Minerals Tab GT SCH (10:34)
[2017-12-17] MEDS: Pantoprazole 40 mg/Packet GT SCH (10:34)
[2017-12-17] MEDS: Lactobacillus Rhamnosus GG 15 Billion CFU CAP.SPRINK PO SCH (10:34)
[2017-12-17] MEDS: Levothyroxine 0.05 Mg Tab PO SCH (10:39)
--- NOTE | 2017-12-17 11:24 | Internal Medicine Prog Note ---
Internal Medicine Subjective - Subjective Service Date: 12/17/17 Patient seen and examined:: with staff Patient is:: awake, verbal, non-interactive, in bed, agitated, confused, congested Patient Complaints of:: congestion Per staff patient has:: no adverse event, no episodes of fall, agitated, combative, tolerating meds Internal Medicine Objective - Results Result Diagrams: 12/17/17 05:05 12/17/17 05:05 Recent Labs: Laboratory Last Values WBC 14.8 Th/cmm (4.8-10.8) H 12/17/17 05:05 RBC 2.86 Mil/cmm (3.80-5.80) L 12/17/17 05:05 Hgb 8.8 gm/dL (12-16) L 12/17/17 05:05 Hct 26.0 % (41.0-60) L 12/17/17 05:05 MCV 90.8 fl (80-99) 12/17/17 05:05 MCH 30.9 pg (27.0-31.0) 12/17/17 05:05 MCHC Differential 34.0 pg (28.0-36.0) 12/17/17 05:05 RDW 14.2 % (11.5-20.0) 12/17/17 05:05 Plt Count 168 Th/cmm (150-400) 12/17/17 05:05 MPV 9.5 fl 12/17/17 05:05 Neutrophils % 94.4 % (40.0-80.0) H 12/17/17 05:05 Lymphocytes % 2.2 % (20.0-50.0) L 12/17/17 05:05 Monocytes % 3.2 % (2.0-10.0) 12/17/17 05:05 Eosinophils % 0.2 % (0.0-5.0) 12/17/17 05:05 Basophils % 0.1 % (0.0-2.0) 12/15/17 04:40 Neutrophils (Manual) 94 % (40-80) H 12/16/17 04:50 Lymphocytes 3 % (20-50) L 12/16/17 04:50 Monocytes 3 % (2-10) 12/16/17 04:50 Platelet Estimate ADEQUATE (NORMAL) 12/16/17 04:50 Eos Smear Source URINE 12/14/17 05:20 Eos Smear Total Cells FEW EOSINOPHILS SEEN (NONE SEEN) 12/14/17 05:20 PT 11.1 SECONDS (9.5-11.5) 12/13/17 04:30 INR 1.07 (0.5-1.4) 12/13/17 04:30 PTT (Actin FS) 30.7 SECONDS (26.0-38.0) 12/13/17 04:30 Sodium 140 mEq/L (136-145) 12/17/17 05:05 Potassium 3.2 mEq/L (3.5-5.1) L 12/17/17 05:05 Chloride 102 mEq/L (98-107) 12/17/17 05:05 Carbon Dioxide 20.7 mEq/L (21.0-31.0) L 12/17/17 05:05 Anion Gap 20.5 (7.0-16.0) H 12/17/17 05:05 BUN 176 mg/dL (7-25) H* 12/17/17 05:05 Creatinine 7.6 mg/dL (0.7-1.3) H* 12/17/17 05:05 Est GFR ( Amer) TNP 12/17/17 05:05 Est GFR (Non-Af Amer) TNP 12/17/17 05:05 BUN/Creatinine Ratio 23.2 12/17/17 05:05 Glucose 201 mg/dL (70-105) H 12/17/17 05:05 POC Glucose 157 MG/DL (70 - 105) H 12/17/17 08:23 Hemoglobin A1c % 5.4 % (4.0-6.0) 12/13/17 04:30 Uric Acid 3.3 mg/dL (4.4-7.6) L 12/14/17 04:50 Calcium 7.9 mg/dL (8.6-10.3) L 12/17/17 05:05 Phosphorus 8.3 mg/dL (2.5-5.0) H 12/14/17 04:50 Magnesium 2.8 mg/dL (1.9-2.7) H 12/17/17 05:05 Total Bilirubin 0.4 mg/dL (0.3-1.0) 12/13/17 04:30 AST 18 U/L (13-39) 12/13/17 04:30 ALT 10 U/L (7-52) 12/13/17 04:30 Alkaline Phosphatase 42 U/L (34-104) 12/13/17 04:30 Ammonia 58 umol/L (16-53) H 12/17/17 05:05 B-Natriuretic Peptide 869.0 pg/mL (5.0-100.0) H 12/17/17 05:05 Total Protein 5.8 gm/dL (6.0-8.3) L 12/13/17 04:30 Albumin 2.6 gm/dL (4.2-5.5) L 12/13/17 04:30 Globulin 3.2 gm/dL 12/13/17 04:30 Albumin/Globulin Ratio 0.8 (1.0-1.8) L 12/13/17 04:30 Vitamin B12 1120 pg/mL (232-1245) 12/14/17 04:50 Folic Acid >20.0 ng/mL (>3.0) 12/14/17 04:50 TSH 5.98 uIU/ml (0.34-5.60) H 12/12/17 20:32 Urine Source CATH 12/13/17 13:00 Urine Color RED 12/13/17 13:00 Urine Clarity SLIGHT CLOUDY (CLEAR) 12/13/17 13:00 Urine pH 7.5 (4.6 - 8.0) 12/13/17 13:00 Ur Specific [place] 1.015 (1.005-1.030) 12/13/17 13:00 Urine Protein 100 mg/dL (NEGATIVE) H 12/13/17 13:00 Urine Glucose (UA) NEGATIVE mg/dL (NEGATIVE) 12/13/17 13:00 Urine Ketones NEGATIVE mg/dL (NEGATIVE) 12/13/17 13:00 Urine Blood LARGE (NEGATIVE) H 12/13/17 13:00 Urine Nitrate NEGATIVE (NEGATIVE) 12/13/17 13:00 Urine Bilirubin NEGATIVE (NEGATIVE) 12/13/17 13:00 Urine Urobilinogen 0.2 E.U./dL (0.2 - 1.0) 12/13/17 13:00 Ur Leukocyte Esterase TRACE (NEGATIVE) H 12/13/17 13:00 Urine RBC 50-100 /hpf (0-5) H 12/13/17 13:00 Urine WBC 2-5 /hpf (0-5) 12/13/17 13:00 Ur Epithelial Cells OCCASIONAL /lpf (FEW) 12/13/17 13:00 Urine Bacteria OCCASIONAL /hpf (NONE SEEN) 12/13/17 13:00 Ur Random Sodium 80 mmol/L 12/14/17 05:20 Urine Creatinine 22.2 mg/dl (Not Estab.) 12/14/17 07:30 Urine Microalbumin 342.3 ug/mL (Not Estab.) 12/14/17 07:30 - Physical Exam Vitals and I&O: Vital Signs Temp 96.6 F 12/17/17 08:00 Pulse 81 12/17/17 08:00 Resp 18 12/17/17 08:00 BP 124/54 12/17/17 08:00 Pulse Ox 100 12/17/17 08:00 Intake & Output 12/16/17 12/17/17 12/17/17 18:59 06:59 18:59 Intake Total 1320 50 Output Total 325 Balance 995 50 Weight (lbs) 178 lb 6.4 oz Intake: Intake, IV Amount 1050 50 D5-0.45NS 1,000 ml @ 80 1000 mls/hr IV .[id number] [facility] Rx #:[id number] Piperacillin Sodium/ 50 50 Tazobact 2.25 gm In Sodium Chloride 0.9% 50 ml @ 100 mls/hr IV Q8HR [facility] Rx#:[id number] Oral 0 Tube Feeding 270 Output: Urine 325 Other: # Bowel Movements 0 Active Medications: Current Medications Acetaminophen (Tylenol) 650 mg GT Q4HR PRN PRN Reason: Pain or Fever >101 Stop: 02/10/18 22:29 Albuterol/Ipratropium (Duoneb Neb) 3 ml HHN Q4HRT [facility] Stop: 02/10/18 22:59 Last Admin: 12/17/17 11:13 Dose: 3 ml Ascorbic Acid (Vitamin C) 500 mg GT DAILY [facility] Stop: 02/11/18 10:59 Last Admin: 12/17/17 10:34 Dose: 500 mg Bisacodyl (Dulcolax 10 Mg Supp) 10 mg RC DAILY PRN PRN Reason: Constipation Stop: 02/10/18 22:29 Haloperidol (Haldol) 1 mg PO Q6HR PRN; Protocol PRN Reason: Agitation Stop: 02/12/18 17:59 Last Admin: 12/17/17 10:34 Dose: 1 mg Norepinephrine Bitartrate 4 mg (/ Dextrose) 254 mls @ 0 mls/hr IV TITR PRN; Protocol; Per Protocol PRN Reason: To Keep SBP Above 90 Stop: 02/10/18 22:33 Last Titration: 12/14/17 01:30 Dose: 0 mcg/min, 0 mls/hr Piperacillin Sod/Tazobactam (Sod 2.25 gm/ Sodium Chloride) 50 mls @ 100 mls/hr IV Q8HR [facility] Stop: 02/11/18 04:59 Last Admin: 12/17/17 05:46 Dose: 100 mls/hr Dextrose/Sodium Chloride (D5-0.45ns) 1,000 mls @ 40 mls/hr IV .Q24H [facility] Stop: 02/14/18 14:04 Last Admin: 12/16/17 18:15 Dose: 40 mls/hr Insulin Aspart (Novolog) 0 units SUBQ ACHS [facility] PRN Reason: Protocol Stop: 02/12/18 16:29 Last Admin: 12/17/17 10:30 Dose: Not Given Lactobacillus Rhamnosus (Culturelle 15b) 1 each PO DAILY [facility] Stop: 02/12/18 08:59 Last Admin: 12/17/17 10:34 Dose: 1 each Levothyroxine Sodium (Synthroid) 0.05 mg PO QDAC [facility] Stop: 02/12/18 07:29 Last Admin: 12/17/17 10:39 Dose: 0.05 mg Lorazepam (Ativan) 0.5 mg GT Q6HR PRN; Protocol PRN Reason: Anxiety Stop: 02/10/18 22:29 Last Admin: 12/17/17 10:35 Dose: 0.5 mg Lorazepam (Ativan) 0.5 mg IV Q6H PRN; Protocol PRN Reason: Agitation Stop: 02/12/18 14:40 Last Admin: 12/16/17 21:59 Dose: 0.5 mg Methylprednisolone Sodium Succinate (Solu-Medrol) 60 mg IVP Q8HR [facility] Stop: 02/11/18 16:14 Last Admin: 12/17/17 05:47 Dose: 60 mg Miscellaneous (Vte Chemical Prophylaxis Screen/ Admission) 1 ea PRN PRN PRN Reason: PROTOCOL Stop: 02/11/18 15:50 Miscellaneous (Probiotic Screen) 1 ea PRN PRN PRN Reason: PROTOCOL Stop: 02/11/18 17:23 Miscellaneous (Clinical Monitoring) 1 ea PRN PRN PRN Reason: RENAL Stop: 02/15/18 10:20 Ondansetron HCl (Zofran) 4 mg IVP Q6H PRN PRN Reason: Nausea / Vomiting Stop: 02/10/18 22:25 Pantoprazole Sodium (Protonix) 40 mg GT DAILY [facility] Stop: 02/11/18 08:59 Last Admin: 12/17/17 10:34 Dose: 40 mg Sodium Phosphate (Fleet Enema) 135 ml RC Q72HR PRN PRN Reason: Constipation Stop: 02/10/18 22:29 General: demented, bilateral temporal wasting HEENT: NC/AT, PERRLA Neck: Supple, No JVD Lungs: congested, rales, ronchi Cardiovascular: RRR, Normal S1, Normal S2, with murmur Abdomen: soft, non-tender, globular, +GT, positive bowel sound Extremities: excoriation, contracture, deformity Neurological: no change, unable to follow command, bedbound Internal Medicine Assmt/Plan - Assessment Assessment: hyperkalemia sepsis arf hypotension cva ent ca htn dm copd cad anemia dnr - Plan Plan: continue ivabx follow up labs in am renal follow up continue current plan of care Nutritional Asmnt/Malnutr-PDOC - Dietary Evaluation Malnutrition Findings (Please click <Entered> for more info): Nutritional Asmnt/Malnutrition Start: 12/13/17 14: 43 Text: Status: Complete Freq: Document 12/13/17 14:43 LCHENG (Rec: 12/13/17 14:54 [facility]-[email or web address]) Nutritional Asmnt/Malnutrition Patient General Information Nutritional Screening High Risk Diagnosis hypotension, acute renal failure Pertinent Medical Hx/Surgical Hx HTN, CAD, asthma/COPD, nasopharyngeal neoplasm, anxiety, PEG-Gtube Subjective Information Pt seen lying in bed, confused . Verified TF running at 30ml/ hr at time of visit. Per nurse note 3/2, no residual noted. Current Diet Order/ Nutrition Support Novosource Renal 30ml/hr x 20hr Pertinent Medications Vit C, d5-0.9%ns, dopamine, novolog, protonix, piperacillin Pertinent Labs 3/2 na 141, K 5.0, Cl 101, BUN 163, Cr 8.1, Glucose 123, POC 123-134, Ca 7.9 Nutritional Hx/Data Height 5 ft 2 in Height (Calculated Centimeters) 157.5 Current Weight (lbs) 159 lb Weight (Calculated Kilograms) 72.1 Weight (Calculated Grams) 83851.2 [place] Body Weight 118 % [place] Body Weight 135 Body Mass Index (BMI) 29.0 Weight Status Overweight GI Symptoms GI Symptoms None Last BM 3/2 Difficult in: None Skin Integrity/Comment: rash to left leg, bruise to right and left arm Estimated Nutritional Goals BEE in Kcals: Using Current wt Calories/Kcals/Kg 25-30 Kcals Calculated 8971-5366 Protein: Using Current wt Protein g/k.8-1 considering renal labs Protein Calculated 45-56 Fluid: ml per MD considering acute renal failure Nutritional Problem 1. Problem Problem altered nutrition related lab values Etiology dx of acute renal failure, hx of DM Signs/Symptoms: BUN 163, Cr 8.1, Glucose 123, POC 123-134 Malnutrition Alert Protein-Calorie Malnutrition N/A Is there a minimum of two criteria No selected? Query Text:Check all the applicable criteria. A minimum of two criteria are recommended for diagnosis of either severe or non-severe malnutrition. Intervention/Recommendation Comments 1. Continue with current TF regimen. It provides 1200kcal, 54g protein, 430ml free water , meeting 100% of nutritional needs 2. Monitor TF rate, tolerance, wt weekly, skin integrity and labs 3. F/U as high risk in 2-3 days, 3/4-3/5 Expected Outcomes/Goals Expected Outcomes/Goals 1. Pt to meet at least 75% of nutritional needs via nutrition support with tolerance 2. Wt stability, skin to remain intact, labs to approach WNL.
--- NOTE | 2017-12-17 14:35 | General Progress Note ---
Subjective - Review of Systems Service Date: 12/17/17 Subjective: sleeping, more quiet Objective - Results Result Diagrams: 12/17/17 05:05 12/17/17 05:05 Recent Labs: Laboratory Last Values WBC 14.8 Th/cmm (4.8-10.8) H 12/17/17 05:05 RBC 2.86 Mil/cmm (3.80-5.80) L 12/17/17 05:05 Hgb 8.8 gm/dL (12-16) L 12/17/17 05:05 Hct 26.0 % (41.0-60) L 12/17/17 05:05 MCV 90.8 fl (80-99) 12/17/17 05:05 MCH 30.9 pg (27.0-31.0) 12/17/17 05:05 MCHC Differential 34.0 pg (28.0-36.0) 12/17/17 05:05 RDW 14.2 % (11.5-20.0) 12/17/17 05:05 Plt Count 168 Th/cmm (150-400) 12/17/17 05:05 MPV 9.5 fl 12/17/17 05:05 Neutrophils % 94.4 % (40.0-80.0) H 12/17/17 05:05 Lymphocytes % 2.2 % (20.0-50.0) L 12/17/17 05:05 Monocytes % 3.2 % (2.0-10.0) 12/17/17 05:05 Eosinophils % 0.2 % (0.0-5.0) 12/17/17 05:05 Basophils % 0.1 % (0.0-2.0) 12/15/17 04:40 Neutrophils (Manual) 94 % (40-80) H 12/16/17 04:50 Lymphocytes 3 % (20-50) L 12/16/17 04:50 Monocytes 3 % (2-10) 12/16/17 04:50 Platelet Estimate ADEQUATE (NORMAL) 12/16/17 04:50 Eos Smear Source URINE 12/14/17 05:20 Eos Smear Total Cells FEW EOSINOPHILS SEEN (NONE SEEN) 12/14/17 05:20 PT 11.1 SECONDS (9.5-11.5) 12/13/17 04:30 INR 1.07 (0.5-1.4) 12/13/17 04:30 PTT (Actin FS) 30.7 SECONDS (26.0-38.0) 12/13/17 04:30 Sodium 140 mEq/L (136-145) 12/17/17 05:05 Potassium 3.2 mEq/L (3.5-5.1) L 12/17/17 05:05 Chloride 102 mEq/L (98-107) 12/17/17 05:05 Carbon Dioxide 20.7 mEq/L (21.0-31.0) L 12/17/17 05:05 Anion Gap 20.5 (7.0-16.0) H 12/17/17 05:05 BUN 176 mg/dL (7-25) H* 12/17/17 05:05 Creatinine 7.6 mg/dL (0.7-1.3) H* 12/17/17 05:05 Est GFR ( Amer) TNP 12/17/17 05:05 Est GFR (Non-Af Amer) TNP 12/17/17 05:05 BUN/Creatinine Ratio 23.2 12/17/17 05:05 Glucose 201 mg/dL (70-105) H 12/17/17 05:05 POC Glucose 154 MG/DL (70 - 105) H 12/17/17 12:13 Hemoglobin A1c % 5.4 % (4.0-6.0) 12/13/17 04:30 Uric Acid 3.3 mg/dL (4.4-7.6) L 12/14/17 04:50 Calcium 7.9 mg/dL (8.6-10.3) L 12/17/17 05:05 Phosphorus 8.3 mg/dL (2.5-5.0) H 12/14/17 04:50 Magnesium 2.8 mg/dL (1.9-2.7) H 12/17/17 05:05 Total Bilirubin 0.4 mg/dL (0.3-1.0) 12/13/17 04:30 AST 18 U/L (13-39) 12/13/17 04:30 ALT 10 U/L (7-52) 12/13/17 04:30 Alkaline Phosphatase 42 U/L (34-104) 12/13/17 04:30 Ammonia 58 umol/L (16-53) H 12/17/17 05:05 B-Natriuretic Peptide 869.0 pg/mL (5.0-100.0) H 12/17/17 05:05 Total Protein 5.8 gm/dL (6.0-8.3) L 12/13/17 04:30 Albumin 2.6 gm/dL (4.2-5.5) L 12/13/17 04:30 Globulin 3.2 gm/dL 12/13/17 04:30 Albumin/Globulin Ratio 0.8 (1.0-1.8) L 12/13/17 04:30 Vitamin B12 1120 pg/mL (232-1245) 12/14/17 04:50 Folic Acid >20.0 ng/mL (>3.0) 12/14/17 04:50 TSH 5.98 uIU/ml (0.34-5.60) H 12/12/17 20:32 Urine Source CATH 12/13/17 13:00 Urine Color RED 12/13/17 13:00 Urine Clarity SLIGHT CLOUDY (CLEAR) 12/13/17 13:00 Urine pH 7.5 (4.6 - 8.0) 12/13/17 13:00 Ur Specific [place] 1.015 (1.005-1.030) 12/13/17 13:00 Urine Protein 100 mg/dL (NEGATIVE) H 12/13/17 13:00 Urine Glucose (UA) NEGATIVE mg/dL (NEGATIVE) 12/13/17 13:00 Urine Ketones NEGATIVE mg/dL (NEGATIVE) 12/13/17 13:00 Urine Blood LARGE (NEGATIVE) H 12/13/17 13:00 Urine Nitrate NEGATIVE (NEGATIVE) 12/13/17 13:00 Urine Bilirubin NEGATIVE (NEGATIVE) 12/13/17 13:00 Urine Urobilinogen 0.2 E.U./dL (0.2 - 1.0) 12/13/17 13:00 Ur Leukocyte Esterase TRACE (NEGATIVE) H 12/13/17 13:00 Urine RBC 50-100 /hpf (0-5) H 12/13/17 13:00 Urine WBC 2-5 /hpf (0-5) 12/13/17 13:00 Ur Epithelial Cells OCCASIONAL /lpf (FEW) 12/13/17 13:00 Urine Bacteria OCCASIONAL /hpf (NONE SEEN) 12/13/17 13:00 Ur Random Sodium 80 mmol/L 12/14/17 05:20 Urine Creatinine 22.2 mg/dl (Not Estab.) 12/14/17 07:30 Urine Microalbumin 342.3 ug/mL (Not Estab.) 12/14/17 07:30 - Physical Exam Vitals and I&O: Vital Signs Temp 97.5 F 12/17/17 12:00 Pulse 82 12/17/17 12:00 Resp 18 12/17/17 12:00 BP 129/47 12/17/17 12:00 Pulse Ox 98 12/17/17 12:00 Intake & Output 12/16/17 12/17/17 12/17/17 18:59 06:59 18:59 Intake Total 1320 100 Output Total 325 Balance 995 100 Weight (lbs) 80.921 kg Intake: Intake, IV Amount 1050 100 D5-0.45NS 1,000 ml @ 80 1000 mls/hr IV .[id number] [facility] Rx #:[id number] Piperacillin Sodium/ 50 100 Tazobact 2.25 gm In Sodium Chloride 0.9% 50 ml @ 100 mls/hr IV Q8HR [facility] Rx#:[id number] Oral 0 Tube Feeding 270 Output: Urine 325 Other: # Bowel Movements 0 Active Medications: Current Medications Acetaminophen (Tylenol) 650 mg GT Q4HR PRN PRN Reason: Pain or Fever >101 Stop: 02/10/18 22:29 Albuterol/Ipratropium (Duoneb Neb) 3 ml HHN Q4HRT [facility] Stop: 02/10/18 22:59 Last Admin: 12/17/17 11:13 Dose: 3 ml Ascorbic Acid (Vitamin C) 500 mg GT DAILY [facility] Stop: 02/11/18 10:59 Last Admin: 12/17/17 10:34 Dose: 500 mg Bisacodyl (Dulcolax 10 Mg Supp) 10 mg RC DAILY PRN PRN Reason: Constipation Stop: 02/10/18 22:29 Haloperidol (Haldol) 1 mg PO Q6HR PRN; Protocol PRN Reason: Agitation Stop: 02/12/18 17:59 Last Admin: 12/17/17 10:34 Dose: 1 mg Norepinephrine Bitartrate 4 mg (/ Dextrose) 254 mls @ 0 mls/hr IV TITR PRN; Protocol; Per Protocol PRN Reason: To Keep SBP Above 90 Stop: 02/10/18 22:33 Last Titration: 12/14/17 01:30 Dose: 0 mcg/min, 0 mls/hr Piperacillin Sod/Tazobactam (Sod 2.25 gm/ Sodium Chloride) 50 mls @ 100 mls/hr IV Q8HR [facility] Stop: 02/11/18 04:59 Last Admin: 12/17/17 12:35 Dose: 100 mls/hr Dextrose/Sodium Chloride (D5-0.45ns) 1,000 mls @ 40 mls/hr IV .Q24H [facility] Stop: 02/14/18 14:04 Last Admin: 12/16/17 18:15 Dose: 40 mls/hr Insulin Aspart (Novolog) 0 units SUBQ ACHS [facility] PRN Reason: Protocol Stop: 02/12/18 16:29 Last Admin: 12/17/17 12:30 Dose: Not Given Lactobacillus Rhamnosus (Culturelle 15b) 1 each PO DAILY [facility] Stop: 02/12/18 08:59 Last Admin: 12/17/17 10:34 Dose: 1 each Levothyroxine Sodium (Synthroid) 0.05 mg PO QDAC [facility] Stop: 02/12/18 07:29 Last Admin: 12/17/17 10:39 Dose: 0.05 mg Lorazepam (Ativan) 0.5 mg GT Q6HR PRN; Protocol PRN Reason: Anxiety Stop: 02/10/18 22:29 Last Admin: 12/17/17 10:35 Dose: 0.5 mg Lorazepam (Ativan) 0.5 mg IV Q6H PRN; Protocol PRN Reason: Agitation Stop: 02/12/18 14:40 Last Admin: 12/16/17 21:59 Dose: 0.5 mg Methylprednisolone Sodium Succinate (Solu-Medrol) 60 mg IVP Q8HR [facility] Stop: 02/11/18 16:14 Last Admin: 12/17/17 12:35 Dose: 60 mg Miscellaneous (Vte Chemical Prophylaxis Screen/ Admission) 1 ea PRN PRN PRN Reason: PROTOCOL Stop: 02/11/18 15:50 Miscellaneous (Probiotic Screen) 1 ea PRN PRN PRN Reason: PROTOCOL Stop: 02/11/18 17:23 Miscellaneous (Clinical Monitoring) 1 ea MC PRN PRN PRN Reason: RENAL Stop: 02/15/18 10:20 Ondansetron HCl (Zofran) 4 mg IVP Q6H PRN PRN Reason: Nausea / Vomiting Stop: 02/10/18 22:25 Pantoprazole Sodium (Protonix) 40 mg GT DAILY [facility] Stop: 02/11/18 08:59 Last Admin: 12/17/17 10:34 Dose: 40 mg Sodium Phosphate (Fleet Enema) 135 ml RC Q72HR PRN PRN Reason: Constipation Stop: 02/10/18 22:29 General: No acute distress HEENT: Atraumatic, EOMI, Mucous membr. moist/pink Neck: Supple Cardiovascular: Regular rate, Normal S1, Normal S2 Lungs: Other (decreased BS) Abdomen: Bowel sounds, Soft Extremities: no Edema Neurological: Sensation intact Skin: no Rash Psych/Mental Status: Mood NL, Other (confused) Assessment/Plan - Assessment Assessment: DANIEL Excerbation COPD Severe Malnutrition Hx Nasopharyngeal CA S/P CVA CAD Ess HTN Anemia CD Psychosis - Plan Plan: Lab - Result Diagrams 12/14/17 04:50 12/14/17 04:50 Current Medications Acetaminophen (Tylenol) 650 mg GT Q4HR PRN PRN Reason: Pain or Fever >101 Stop: 02/10/18 22:29 Albuterol/Ipratropium (Duoneb Neb) 3 ml HHN Q4HRT [facility] Stop: 02/10/18 22:59 Last Admin: 12/14/17 14:45 Dose: 3 ml Ascorbic Acid (Vitamin C) 500 mg GT DAILY [facility] Stop: 02/11/18 10:59 Last Admin: 12/14/17 09:23 Dose: 500 mg Bisacodyl (Dulcolax 10 Mg Supp) 10 mg RC DAILY PRN PRN Reason: Constipation Stop: 02/10/18 22:29 Haloperidol (Haldol) 1 mg PO Q6HR PRN; Protocol PRN Reason: Agitation Stop: 02/12/18 17:59 Norepinephrine Bitartrate 4 mg (/ Dextrose) 254 mls @ 0 mls/hr IV TITR PRN; Protocol; Per Protocol PRN Reason: To Keep SBP Above 90 Stop: 02/10/18 22:33 Last Titration: 12/14/17 01:30 Dose: 0 mcg/min, 0 mls/hr Dopamine HCl/Dextrose (Dopamine) 400 mg in 250 mls @ 8.114 mls/hr IV TITR PRN; 3 MCG/KG/MIN PRN Reason: RENAL PERFUSION Stop: 02/11/18 13:09 Last Infusion: 12/14/17 06:00 Dose: 3 mcg/kg/min, 8.114 mls/hr Piperacillin Sod/Tazobactam (Sod 2.25 gm/ Sodium Chloride) 50 mls @ 100 mls/hr IV Q8HR [facility] Stop: 02/11/18 04:59 Last Infusion: 12/14/17 05:30 Dose: Infused Dextrose/Sodium Chloride (D5-0.45ns) 1,000 mls @ 80 mls/hr IV .[id number] [facility] Stop: 02/12/18 14:44 Insulin Aspart (Novolog) 0 units SUBQ ACHS [facility] PRN Reason: Protocol Stop: 02/11/18 07:29 Last Admin: 12/14/17 12:32 Dose: Not Given Lactobacillus Rhamnosus (Culturelle 15b) 1 each PO DAILY [facility] Stop: 02/12/18 08:59 Last Admin: 12/14/17 09:23 Dose: 1 each Levothyroxine Sodium (Synthroid) 0.05 mg PO QDAC [facility] Stop: 02/12/18 07:29 Lorazepam (Ativan) 0.5 mg GT Q6HR PRN; Protocol PRN Reason: Anxiety Stop: 02/10/18 22:29 Last Admin: 12/14/17 09:23 Dose: 0.5 mg Lorazepam (Ativan) 0.5 mg IV Q6H PRN; Protocol PRN Reason: Agitation Stop: 02/12/18 14:40 Methylprednisolone Sodium Succinate (Solu-Medrol) 60 mg IVP Q8HR [facility] Stop: 02/11/18 16:14 Last Admin: 12/14/17 05:00 Dose: 60 mg Miscellaneous (Vte Chemical Prophylaxis Screen/ Admission) 1 ea [facility] PRN PRN PRN Reason: PROTOCOL Stop: 02/11/18 15:50 Miscellaneous (Probiotic Screen) 1 ea PRN PRN PRN Reason: PROTOCOL Stop: 02/11/18 17:23 Ondansetron HCl (Zofran) 4 mg IVP Q6H PRN PRN Reason: Nausea / Vomiting Stop: 02/10/18 22:25 Pantoprazole Sodium (Protonix) 40 mg GT DAILY [facility] Stop: 02/11/18 08:59 Last Admin: 12/14/17 09:23 Dose: 40 mg Sodium Phosphate (Fleet Enema) 135 ml RC Q72HR PRN PRN Reason: Constipation Stop: 02/10/18 22:29 Sodium Polystyrene Lab - Result Diagrams 12/17/17 05:05 12/17/17 05:05 Kidney fnc worse K decreased to 3.2 resp status better replace K f/u electrolytes, cbc pt. is DNR Nutritional Asmnt/Malnutr-PDOC - Dietary Evaluation Malnutrition Findings (Please click <Entered> for more info): Nutritional Asmnt/Malnutrition Start: 12/13/17 14: 43 Text: Status: Complete Freq: Document 12/13/17 14:43 GRANT (Rec: 12/13/17 14:54 LCHENG JOSE ALEJANDRO-[email or web address]) Nutritional Asmnt/Malnutrition Patient General Information Nutritional Screening High Risk Diagnosis hypotension, acute renal failure Pertinent Medical Hx/Surgical Hx HTN, CAD, asthma/COPD, nasopharyngeal neoplasm, anxiety, PEG-Gtube Subjective Information Pt seen lying in bed, confused . Verified TF running at 30ml/ hr at time of visit. Per nurse note 3/2, no residual noted. Current Diet Order/ Nutrition Support Novosource Renal 30ml/hr x 20hr Pertinent Medications Vit C, d5-0.9%ns, dopamine, novolog, protonix, piperacillin Pertinent Labs 3/2 na 141, K 5.0, Cl 101, BUN 163, Cr 8.1, Glucose 123, POC 123-134, Ca 7.9 Nutritional Hx/Data Height 1.57 m Height (Calculated Centimeters) 157.5 Current Weight (lbs) 72.121 kg Weight (Calculated Kilograms) 72.1 Weight (Calculated Grams) 58677.2 [place] Body Weight 118 % [place] Body Weight 135 Body Mass Index (BMI) 29.0 Weight Status Overweight GI Symptoms GI Symptoms None Last BM 3/2 Difficult in: None Skin Integrity/Comment: rash to left leg, bruise to right and left arm Estimated Nutritional Goals BEE in Kcals: Using Current wt Calories/Kcals/Kg 25-30 Kcals Calculated 7702-7409 Protein: Using Current wt Protein g/k.8-1 considering renal labs Protein Calculated 45-56 Fluid: ml per MD considering acute renal failure Nutritional Problem 1. Problem Problem altered nutrition related lab values Etiology dx of acute renal failure, hx of DM Signs/Symptoms: BUN 163, Cr 8.1, Glucose 123, POC 123-134 Malnutrition Alert Protein-Calorie Malnutrition N/A Is there a minimum of two criteria No selected? Query Text:Check all the applicable criteria. A minimum of two criteria are recommended for diagnosis of either severe or non-severe malnutrition. Intervention/Recommendation Comments 1. Continue with current TF regimen. It provides 1200kcal, 54g protein, 430ml free water , meeting 100% of nutritional needs 2. Monitor TF rate, tolerance, wt weekly, skin integrity and labs 3. F/U as high risk in 2-3 days, 3/-3/5 Expected Outcomes/Goals Expected Outcomes/Goals 1. Pt to meet at least 75% of nutritional needs via nutrition support with tolerance 2. Wt stability, skin to remain intact, labs to approach WNL.
[2017-12-17] MEDS ORDERED: Potassium Chloride 20 mEq ER Tab PO ONE (14:37)
[2017-12-17] MEDS: D5-0.45NS 1,000 ML IV SCH (18:34)
[2017-12-18] MEDS: Albuterol/Ipratropium Neb 3 ML AERS HHN SCH ×5 (02:54→20:39)
[2017-12-18] MEDS: methylPREDNISolone SS 40 mg Vial IVP SCH ×3 (04:59→21:47)
[2017-12-18] MEDS: Levothyroxine 0.05 Mg Tab PO SCH (06:33)
[2017-12-18] MEDS: INSULIN ASPART, RECOMBINANT 100 UNITS/ML SUBQ SCH ×4 (06:33→22:04)
[2017-12-18 07:46] LABS: ANION GAP 21.8 (7.0-16.0); CALCIUM SERUM 8.2 mg/dL (8.6-10.3); CARBON DIOXIDE 21.5 mEq/L (21.0-31.0); CHLORIDE 100 mEq/L (98-107); GLUCOSE 135 mg/dL (70-105); HEMATOCRIT 28.3 % (41.0-60); HEMOGLOBIN 9.6 gm/dL (12-16); MEAN CELL VOLUME 90.6 fl (80-99); MEAN CORPUSCULAR HEMOGLOBIN 30.7 pg (27.0-31.0); MEAN CORPUSCULAR HGB CONC 33.9 pg (28.0-36.0); MEAN PLATELET VOLUME 9.8 fl; PLATELET COUNT 180 Th/cmm (150-400); POTASSIUM SERUM 3.3 mEq/L (3.5-5.1); RED BLOOD COUNT 3.13 Mil/cmm (3.80-5.80); RED CELL DISTRIBUTION WIDTH 14.2 % (11.5-20.0); SODIUM SERUM 140 mEq/L (136-145)
[2017-12-18 08:00] LABS: BUN - UREA NITROGEN 187 mg/dL (7-25)
[2017-12-18 08:01] LABS: CREATININE - SERUM 7.6 mg/dL (0.7-1.3)
[2017-12-18 08:04] LABS: % NEUTROPHILS 93.7 % (40.0-80.0); WHITE BLOOD COUNT 21.1 Th/cmm (4.8-10.8)
[2017-12-18 08:05] LABS: % EOSINOPHILS 0.2 % (0.0-5.0); % LYMPHOCYTES 2.1 % (20.0-50.0); LYMPHOCYTE ABSOLUTE 0.4 Th/cmm (1.5-3.0); MONOCYTE ABSOLUTE 0.8 Th/cmm (0.3-1.0); NEUTROPHILE ABSOLUTE 19.9 Th/cmm (1.8-8.0)
[2017-12-18] MEDS: Pantoprazole 40 mg/Packet GT SCH (09:02)
[2017-12-18] MEDS: Multivitamin w/ Minerals Tab GT SCH (09:02)
[2017-12-18] MEDS ORDERED: Potassium Chloride 20 mEq ER Tab PO ONE (14:22)
--- NOTE | 2017-12-18 14:23 | Internal Medicine Prog Note ---
Internal Medicine Subjective - Subjective Patient seen and examined:: with staff, chart reviewed Patient is:: awake, verbal, non-interactive, in bed, agitated, confused, congested Patient Complaints of:: congestion Per staff patient has:: no adverse event, no episodes of fall, agitated, combative, tolerating meds Internal Medicine Objective - Results Result Diagrams: 12/18/17 06:30 12/18/17 06:30 Recent Labs: Laboratory Last Values WBC 21.1 Th/cmm (4.8-10.8) H* 12/18/17 06:30 RBC 3.13 Mil/cmm (3.80-5.80) L 12/18/17 06:30 Hgb 9.6 gm/dL (12-16) L 12/18/17 06:30 Hct 28.3 % (41.0-60) L 12/18/17 06:30 MCV 90.6 fl (80-99) 12/18/17 06:30 MCH 30.7 pg (27.0-31.0) 12/18/17 06:30 MCHC Differential 33.9 pg (28.0-36.0) 12/18/17 06:30 RDW 14.2 % (11.5-20.0) 12/18/17 06:30 Plt Count 180 Th/cmm (150-400) 12/18/17 06:30 MPV 9.8 fl 12/18/17 06:30 Neutrophils % 93.7 % (40.0-80.0) H 12/18/17 06:30 Lymphocytes % 2.1 % (20.0-50.0) L 12/18/17 06:30 Monocytes % 4.0 % (2.0-10.0) 12/18/17 06:30 Eosinophils % 0.2 % (0.0-5.0) 12/18/17 06:30 Basophils % 0.0 % (0.0-2.0) 12/18/17 06:30 Neutrophils (Manual) 94 % (40-80) H 12/16/17 04:50 Lymphocytes 3 % (20-50) L 12/16/17 04:50 Monocytes 3 % (2-10) 12/16/17 04:50 Platelet Estimate ADEQUATE (NORMAL) 12/16/17 04:50 Eos Smear Source URINE 12/14/17 05:20 Eos Smear Total Cells FEW EOSINOPHILS SEEN (NONE SEEN) 12/14/17 05:20 PT 11.1 SECONDS (9.5-11.5) 12/13/17 04:30 INR 1.07 (0.5-1.4) 12/13/17 04:30 PTT (Actin FS) 30.7 SECONDS (26.0-38.0) 12/13/17 04:30 Sodium 140 mEq/L (136-145) 12/18/17 06:30 Potassium 3.3 mEq/L (3.5-5.1) L 12/18/17 06:30 Chloride 100 mEq/L (98-107) 12/18/17 06:30 Carbon Dioxide 21.5 mEq/L (21.0-31.0) 12/18/17 06:30 Anion Gap 21.8 (7.0-16.0) H 12/18/17 06:30 BUN 187 mg/dL (7-25) H* 12/18/17 06:30 Creatinine 7.6 mg/dL (0.7-1.3) H* 12/18/17 06:30 Est GFR ( Amer) TNP 12/18/17 06:30 Est GFR (Non-Af Amer) TNP 12/18/17 06:30 BUN/Creatinine Ratio 24.6 12/18/17 06:30 Glucose 135 mg/dL (70-105) H 12/18/17 06:30 POC Glucose 150 MG/DL (70 - 105) H 12/18/17 09:09 Hemoglobin A1c % 5.4 % (4.0-6.0) 12/13/17 04:30 Uric Acid 3.3 mg/dL (4.4-7.6) L 12/14/17 04:50 Calcium 8.2 mg/dL (8.6-10.3) L 12/18/17 06:30 Phosphorus 8.3 mg/dL (2.5-5.0) H 12/14/17 04:50 Magnesium 3.0 mg/dL (1.9-2.7) H 12/18/17 06:30 Total Bilirubin 0.4 mg/dL (0.3-1.0) 12/13/17 04:30 AST 18 U/L (13-39) 12/13/17 04:30 ALT 10 U/L (7-52) 12/13/17 04:30 Alkaline Phosphatase 42 U/L (34-104) 12/13/17 04:30 Ammonia 58 umol/L (16-53) H 12/17/17 05:05 B-Natriuretic Peptide 869.0 pg/mL (5.0-100.0) H 12/17/17 05:05 Total Protein 5.8 gm/dL (6.0-8.3) L 12/13/17 04:30 Albumin 2.6 gm/dL (4.2-5.5) L 12/13/17 04:30 Globulin 3.2 gm/dL 12/13/17 04:30 Albumin/Globulin Ratio 0.8 (1.0-1.8) L 12/13/17 04:30 Vitamin B12 1120 pg/mL (232-1245) 12/14/17 04:50 Folic Acid >20.0 ng/mL (>3.0) 12/14/17 04:50 TSH 5.98 uIU/ml (0.34-5.60) H 12/12/17 20:32 Urine Source CATH 12/13/17 13:00 Urine Color RED 12/13/17 13:00 Urine Clarity SLIGHT CLOUDY (CLEAR) 12/13/17 13:00 Urine pH 7.5 (4.6 - 8.0) 12/13/17 13:00 Ur Specific [place] 1.015 (1.005-1.030) 12/13/17 13:00 Urine Protein 100 mg/dL (NEGATIVE) H 12/13/17 13:00 Urine Glucose (UA) NEGATIVE mg/dL (NEGATIVE) 12/13/17 13:00 Urine Ketones NEGATIVE mg/dL (NEGATIVE) 12/13/17 13:00 Urine Blood LARGE (NEGATIVE) H 12/13/17 13:00 Urine Nitrate NEGATIVE (NEGATIVE) 12/13/17 13:00 Urine Bilirubin NEGATIVE (NEGATIVE) 12/13/17 13:00 Urine Urobilinogen 0.2 E.U./dL (0.2 - 1.0) 12/13/17 13:00 Ur Leukocyte Esterase TRACE (NEGATIVE) H 12/13/17 13:00 Urine RBC 50-100 /hpf (0-5) H 12/13/17 13:00 Urine WBC 2-5 /hpf (0-5) 12/13/17 13:00 Ur Epithelial Cells OCCASIONAL /lpf (FEW) 12/13/17 13:00 Urine Bacteria OCCASIONAL /hpf (NONE SEEN) 12/13/17 13:00 Ur Random Sodium 80 mmol/L 12/14/17 05:20 Urine Creatinine 22.2 mg/dl (Not Estab.) 12/14/17 07:30 Urine Microalbumin 342.3 ug/mL (Not Estab.) 12/14/17 07:30 - Physical Exam Vitals and I&O: Vital Signs Temp 96.2 F 12/18/17 08:00 Pulse 88 12/18/17 12:23 Resp 16 12/18/17 12:23 BP 137/47 12/18/17 08:00 Pulse Ox 96 12/18/17 12:23 Intake & Output 12/17/17 12/18/17 12/18/17 18:59 06:59 18:59 Intake Total 1022.667 50 Output Total 600 Balance 1022.667 -550 Weight (lbs) 80.739 kg 80.739 kg 80.739 kg Intake: Intake, IV Amount 1022.667 50 D5-0.45NS 1,000 ml @ 40 972.667 mls/hr IV .Q24H [facility] Rx#: [id number] Piperacillin Sodium/ 50 50 Tazobact 2.25 gm In Sodium Chloride 0.9% 50 ml @ 100 mls/hr IV Q8HR [facility] Rx#:[id number] Output: Urine 600 Other: # Bowel Movements 1 Active Medications: Current Medications Acetaminophen (Tylenol) 650 mg GT Q4HR PRN PRN Reason: Pain or Fever >101 Stop: 02/10/18 22:29 Albuterol/Ipratropium (Duoneb Neb) 3 ml HHN Q4HRT [facility] Stop: 02/10/18 22:59 Last Admin: 12/18/17 12:23 Dose: 3 ml Ascorbic Acid (Vitamin C) 500 mg GT DAILY [facility] Stop: 02/11/18 10:59 Last Admin: 12/18/17 09:02 Dose: 500 mg Bisacodyl (Dulcolax 10 Mg Supp) 10 mg RC DAILY PRN PRN Reason: Constipation Stop: 02/10/18 22:29 Haloperidol (Haldol) 1 mg PO Q6HR PRN; Protocol PRN Reason: Agitation Stop: 02/12/18 17:59 Last Admin: 12/17/17 10:34 Dose: 1 mg Norepinephrine Bitartrate 4 mg (/ Dextrose) 254 mls @ 0 mls/hr IV TITR PRN; Protocol; Per Protocol PRN Reason: To Keep SBP Above 90 Stop: 02/10/18 22:33 Last Titration: 12/14/17 01:30 Dose: 0 mcg/min, 0 mls/hr Piperacillin Sod/Tazobactam (Sod 2.25 gm/ Sodium Chloride) 50 mls @ 100 mls/hr IV Q8HR [facility] Stop: 02/11/18 04:59 Last Admin: 12/18/17 05:00 Dose: 100 mls/hr Dextrose/Sodium Chloride (D5-0.45ns) 1,000 mls @ 40 mls/hr IV .Q24H [facility] Stop: 02/14/18 14:04 Last Admin: 12/17/17 18:34 Dose: 40 mls/hr Insulin Aspart (Novolog) 0 units SUBQ ACHS [facility] PRN Reason: Protocol Stop: 02/12/18 16:29 Last Admin: 12/18/17 12:27 Dose: Not Given Levothyroxine Sodium (Synthroid) 0.05 mg PO QDAC [facility] Stop: 02/12/18 07:29 Last Admin: 12/18/17 06:33 Dose: 0.05 mg Lorazepam (Ativan) 0.5 mg GT Q6HR PRN; Protocol PRN Reason: Anxiety Stop: 02/10/18 22:29 Last Admin: 12/17/17 10:35 Dose: 0.5 mg Lorazepam (Ativan) 0.5 mg IV Q6H PRN; Protocol PRN Reason: Agitation Stop: 02/12/18 14:40 Last Admin: 12/16/17 21:59 Dose: 0.5 mg Methylprednisolone Sodium Succinate (Solu-Medrol) 60 mg IVP Q8HR [facility] Stop: 02/11/18 16:14 Last Admin: 12/18/17 04:59 Dose: 60 mg Miscellaneous (Vte Chemical Prophylaxis Screen/ Admission) 1 ea [facility] PRN PRN PRN Reason: PROTOCOL Stop: 02/11/18 15:50 Miscellaneous (Probiotic Screen) 1 [facility] PRN PRN PRN Reason: PROTOCOL Stop: 02/11/18 17:23 Miscellaneous (Clinical Monitoring) 1 [facility] PRN PRN PRN Reason: RENAL Stop: 02/15/18 10:20 Ondansetron HCl (Zofran) 4 mg IVP Q6H PRN PRN Reason: Nausea / Vomiting Stop: 02/10/18 22:25 Pantoprazole Sodium (Protonix) 40 mg GT DAILY [facility] Stop: 02/11/18 08:59 Last Admin: 12/18/17 09:02 Dose: 40 mg Sodium Phosphate (Fleet Enema) 135 ml RC Q72HR PRN PRN Reason: Constipation Stop: 02/10/18 22:29 General: demented, bilateral temporal wasting HEENT: NC/AT, PERRLA Neck: Supple, No JVD Lungs: congested, rales, ronchi Cardiovascular: RRR, Normal S1, Normal S2, with murmur Abdomen: soft, non-tender, globular, +GT, positive bowel sound Extremities: excoriation, contracture, deformity Neurological: no change, unable to follow command, bedbound Internal Medicine Assmt/Plan - Assessment Assessment: hypokalemia sepsis arf hypotension cva ent ca htn dm copd cad anemia dnr - Plan Plan: cont on iv abx monitor renal function will review renal us dw dr rodriguez will correct lytes dw rn ltac eval Nutritional Asmnt/Malnutr-PDOC - Dietary Evaluation Malnutrition Findings (Please click <Entered> for more info): Nutritional Asmnt/Malnutrition Start: 12/13/17 14: 43 Text: Status: Complete Freq: Document 12/13/17 14:43 HENG (Rec: 12/13/17 14:54 LCHEN JOSE [email or web address]) Nutritional Asmnt/Malnutrition Patient General Information Nutritional Screening High Risk Diagnosis hypotension, acute renal failure Pertinent Medical Hx/Surgical Hx HTN, CAD, asthma/COPD, nasopharyngeal neoplasm, anxiety, PEG-Gtube Subjective Information Pt seen lying in bed, confused . Verified TF running at 30ml/ hr at time of visit. Per nurse note 3/2, no residual noted. Current Diet Order/ Nutrition Support Novosource Renal 30ml/hr x 20hr Pertinent Medications Vit C, d5-0.9%ns, dopamine, novolog, protonix, piperacillin Pertinent Labs 3/2 na 141, K 5.0, Cl 101, BUN 163, Cr 8.1, Glucose 123, POC 123-134, Ca 7.9 Nutritional Hx/Data Height 1.57 m Height (Calculated Centimeters) 157.5 Current Weight (lbs) 72.121 kg Weight (Calculated Kilograms) 72.1 Weight (Calculated Grams) 09292.2 [place] Body Weight 118 % [place] Body Weight 135 Body Mass Index (BMI) 29.0 Weight Status Overweight GI Symptoms GI Symptoms None Last BM 3/2 Difficult in: None Skin Integrity/Comment: rash to left leg, bruise to right and left arm Estimated Nutritional Goals BEE in Kcals: Using Current wt Calories/Kcals/Kg 25-30 Kcals Calculated 9430-9629 Protein: Using Current wt Protein g/k.8-1 considering renal labs Protein Calculated 45-56 Fluid: ml per MD considering acute renal failure Nutritional Problem 1. Problem Problem altered nutrition related lab values Etiology dx of acute renal failure, hx of DM Signs/Symptoms: BUN 163, Cr 8.1, Glucose 123, POC 123-134 Malnutrition Alert Protein-Calorie Malnutrition N/A Is there a minimum of two criteria No selected? Query Text:Check all the applicable criteria. A minimum of two criteria are recommended for diagnosis of either severe or non-severe malnutrition. Intervention/Recommendation Comments 1. Continue with current TF regimen. It provides 1200kcal, 54g protein, 430ml free water , meeting 100% of nutritional needs 2. Monitor TF rate, tolerance, wt weekly, skin integrity and labs 3. F/U as high risk in 2-3 days, 12/15-5 Expected Outcomes/Goals Expected Outcomes/Goals 1. Pt to meet at least 75% of nutritional needs via nutrition support with tolerance 2. Wt stability, skin to remain intact, labs to approach WNL.
[2017-12-18] MEDS: D5-0.45NS 1,000 ML IV SCH (14:59)
--- NOTE | 2017-12-18 15:35 | General Progress Note ---
Subjective - Review of Systems Service Date: 12/18/17 Subjective: awake, verbalizing, still periods of confusion Objective - Results Result Diagrams: 12/18/17 06:30 12/18/17 06:30 Recent Labs: Laboratory Last Values WBC 21.1 Th/cmm (4.8-10.8) H* 12/18/17 06:30 RBC 3.13 Mil/cmm (3.80-5.80) L 12/18/17 06:30 Hgb 9.6 gm/dL (12-16) L 12/18/17 06:30 Hct 28.3 % (41.0-60) L 12/18/17 06:30 MCV 90.6 fl (80-99) 12/18/17 06:30 MCH 30.7 pg (27.0-31.0) 12/18/17 06:30 MCHC Differential 33.9 pg (28.0-36.0) 12/18/17 06:30 RDW 14.2 % (11.5-20.0) 12/18/17 06:30 Plt Count 180 Th/cmm (150-400) 12/18/17 06:30 MPV 9.8 fl 12/18/17 06:30 Neutrophils % 93.7 % (40.0-80.0) H 12/18/17 06:30 Lymphocytes % 2.1 % (20.0-50.0) L 12/18/17 06:30 Monocytes % 4.0 % (2.0-10.0) 12/18/17 06:30 Eosinophils % 0.2 % (0.0-5.0) 12/18/17 06:30 Basophils % 0.0 % (0.0-2.0) 12/18/17 06:30 Neutrophils (Manual) 94 % (40-80) H 12/16/17 04:50 Lymphocytes 3 % (20-50) L 12/16/17 04:50 Monocytes 3 % (2-10) 12/16/17 04:50 Platelet Estimate ADEQUATE (NORMAL) 12/16/17 04:50 Eos Smear Source URINE 12/14/17 05:20 Eos Smear Total Cells FEW EOSINOPHILS SEEN (NONE SEEN) 12/14/17 05:20 PT 11.1 SECONDS (9.5-11.5) 12/13/17 04:30 INR 1.07 (0.5-1.4) 12/13/17 04:30 PTT (Actin FS) 30.7 SECONDS (26.0-38.0) 12/13/17 04:30 Sodium 140 mEq/L (136-145) 12/18/17 06:30 Potassium 3.3 mEq/L (3.5-5.1) L 12/18/17 06:30 Chloride 100 mEq/L (98-107) 12/18/17 06:30 Carbon Dioxide 21.5 mEq/L (21.0-31.0) 12/18/17 06:30 Anion Gap 21.8 (7.0-16.0) H 12/18/17 06:30 BUN 187 mg/dL (7-25) H* 12/18/17 06:30 Creatinine 7.6 mg/dL (0.7-1.3) H* 12/18/17 06:30 Est GFR ( Amer) TNP 12/18/17 06:30 Est GFR (Non-Af Amer) TNP 12/18/17 06:30 BUN/Creatinine Ratio 24.6 12/18/17 06:30 Glucose 135 mg/dL (70-105) H 12/18/17 06:30 POC Glucose 150 MG/DL (70 - 105) H 12/18/17 09:09 Hemoglobin A1c % 5.4 % (4.0-6.0) 12/13/17 04:30 Uric Acid 3.3 mg/dL (4.4-7.6) L 12/14/17 04:50 Calcium 8.2 mg/dL (8.6-10.3) L 12/18/17 06:30 Phosphorus 8.3 mg/dL (2.5-5.0) H 12/14/17 04:50 Magnesium 3.0 mg/dL (1.9-2.7) H 12/18/17 06:30 Total Bilirubin 0.4 mg/dL (0.3-1.0) 12/13/17 04:30 AST 18 U/L (13-39) 12/13/17 04:30 ALT 10 U/L (7-52) 12/13/17 04:30 Alkaline Phosphatase 42 U/L (34-104) 12/13/17 04:30 Ammonia 58 umol/L (16-53) H 12/17/17 05:05 B-Natriuretic Peptide 869.0 pg/mL (5.0-100.0) H 12/17/17 05:05 Total Protein 5.8 gm/dL (6.0-8.3) L 12/13/17 04:30 Albumin 2.6 gm/dL (4.2-5.5) L 12/13/17 04:30 Globulin 3.2 gm/dL 12/13/17 04:30 Albumin/Globulin Ratio 0.8 (1.0-1.8) L 12/13/17 04:30 Vitamin B12 1120 pg/mL (232-1245) 12/14/17 04:50 Folic Acid >20.0 ng/mL (>3.0) 12/14/17 04:50 TSH 5.98 uIU/ml (0.34-5.60) H 12/12/17 20:32 Urine Source CATH 12/13/17 13:00 Urine Color RED 12/13/17 13:00 Urine Clarity SLIGHT CLOUDY (CLEAR) 12/13/17 13:00 Urine pH 7.5 (4.6 - 8.0) 12/13/17 13:00 Ur Specific [place] 1.015 (1.005-1.030) 12/13/17 13:00 Urine Protein 100 mg/dL (NEGATIVE) H 12/13/17 13:00 Urine Glucose (UA) NEGATIVE mg/dL (NEGATIVE) 12/13/17 13:00 Urine Ketones NEGATIVE mg/dL (NEGATIVE) 12/13/17 13:00 Urine Blood LARGE (NEGATIVE) H 12/13/17 13:00 Urine Nitrate NEGATIVE (NEGATIVE) 12/13/17 13:00 Urine Bilirubin NEGATIVE (NEGATIVE) 12/13/17 13:00 Urine Urobilinogen 0.2 E.U./dL (0.2 - 1.0) 12/13/17 13:00 Ur Leukocyte Esterase TRACE (NEGATIVE) H 12/13/17 13:00 Urine RBC 50-100 /hpf (0-5) H 12/13/17 13:00 Urine WBC 2-5 /hpf (0-5) 12/13/17 13:00 Ur Epithelial Cells OCCASIONAL /lpf (FEW) 12/13/17 13:00 Urine Bacteria OCCASIONAL /hpf (NONE SEEN) 12/13/17 13:00 Ur Random Sodium 80 mmol/L 12/14/17 05:20 Urine Creatinine 22.2 mg/dl (Not Estab.) 12/14/17 07:30 Urine Microalbumin 342.3 ug/mL (Not Estab.) 12/14/17 07:30 - Physical Exam Vitals and I&O: Vital Signs Temp 96.2 F 12/18/17 08:00 Pulse 88 12/18/17 12:23 Resp 16 12/18/17 12:23 BP 137/47 12/18/17 08:00 Pulse Ox 96 12/18/17 12:23 Intake & Output 12/17/17 12/18/17 12/18/17 18:59 06:59 18:59 Intake Total 1022.667 100 816.667 Output Total 600 Balance 1022.667 -500 816.667 Weight (lbs) 80.739 kg 80.739 kg 80.739 kg Intake: Intake, IV Amount 1022.667 100 816.667 D5-0.45NS 1,000 ml @ 40 972.667 816.667 mls/hr IV .Q24H [facility] Rx#: [id number] Piperacillin Sodium/ 50 100 Tazobact 2.25 gm In Sodium Chloride 0.9% 50 ml @ 100 mls/hr IV Q8HR [facility] Rx#:[id number] Output: Urine 600 Other: # Bowel Movements 1 Active Medications: Current Medications Acetaminophen (Tylenol) 650 mg GT Q4HR PRN PRN Reason: Pain or Fever >101 Stop: 02/10/18 22:29 Albuterol/Ipratropium (Duoneb Neb) 3 ml HHN Q4HRT [facility] Stop: 02/10/18 22:59 Last Admin: 12/18/17 15:29 Dose: 3 ml Ascorbic Acid (Vitamin C) 500 mg GT DAILY [facility] Stop: 02/11/18 10:59 Last Admin: 12/18/17 09:02 Dose: 500 mg Bisacodyl (Dulcolax 10 Mg Supp) 10 mg RC DAILY PRN PRN Reason: Constipation Stop: 02/10/18 22:29 Haloperidol (Haldol) 1 mg PO Q6HR PRN; Protocol PRN Reason: Agitation Stop: 02/12/18 17:59 Last Admin: 12/18/17 14:45 Dose: 1 mg Norepinephrine Bitartrate 4 mg (/ Dextrose) 254 mls @ 0 mls/hr IV TITR PRN; Protocol; Per Protocol PRN Reason: To Keep SBP Above 90 Stop: 02/10/18 22:33 Last Titration: 12/14/17 01:30 Dose: 0 mcg/min, 0 mls/hr Piperacillin Sod/Tazobactam (Sod 2.25 gm/ Sodium Chloride) 50 mls @ 100 mls/hr IV Q8HR [facility] Stop: 02/11/18 04:59 Last Admin: 12/18/17 14:59 Dose: 100 mls/hr Dextrose/Sodium Chloride (D5-0.45ns) 1,000 mls @ 40 mls/hr IV .Q24H [facility] Stop: 02/14/18 14:04 Last Admin: 12/18/17 14:59 Dose: 40 mls/hr Insulin Aspart (Novolog) 0 units SUBQ ACHS [facility] PRN Reason: Protocol Stop: 02/12/18 16:29 Last Admin: 12/18/17 12:27 Dose: Not Given Levothyroxine Sodium (Synthroid) 0.05 mg PO QDAC [facility] Stop: 02/12/18 07:29 Last Admin: 12/18/17 06:33 Dose: 0.05 mg Lorazepam (Ativan) 0.5 mg GT Q6HR PRN; Protocol PRN Reason: Anxiety Stop: 02/10/18 22:29 Last Admin: 12/18/17 14:44 Dose: 0.5 mg Lorazepam (Ativan) 0.5 mg IV Q6H PRN; Protocol PRN Reason: Agitation Stop: 02/12/18 14:40 Last Admin: 12/16/17 21:59 Dose: 0.5 mg Methylprednisolone Sodium Succinate (Solu-Medrol) 60 mg IVP Q8HR [facility] Stop: 02/11/18 16:14 Last Admin: 12/18/17 14:29 Dose: 60 mg Miscellaneous (Vte Chemical Prophylaxis Screen/ Admission) 1 ea PRN PRN PRN Reason: PROTOCOL Stop: 02/11/18 15:50 Miscellaneous (Probiotic Screen) 1 ea PRN PRN PRN Reason: PROTOCOL Stop: 02/11/18 17:23 Miscellaneous (Clinical Monitoring) 1 ea MC PRN PRN PRN Reason: RENAL Stop: 02/15/18 10:20 Ondansetron HCl (Zofran) 4 mg IVP Q6H PRN PRN Reason: Nausea / Vomiting Stop: 02/10/18 22:25 Pantoprazole Sodium (Protonix) 40 mg GT DAILY [facility] Stop: 02/11/18 08:59 Last Admin: 12/18/17 09:02 Dose: 40 mg Sodium Phosphate (Fleet Enema) 135 ml RC Q72HR PRN PRN Reason: Constipation Stop: 02/10/18 22:29 General: No acute distress HEENT: Atraumatic, EOMI, Mucous membr. moist/pink Neck: Supple Cardiovascular: Regular rate, Normal S1, Normal S2 Lungs: Other (decreased BS) Abdomen: Bowel sounds, Soft Extremities: no Edema Neurological: Sensation intact Skin: no Rash Psych/Mental Status: Mood NL, Other (confused) Assessment/Plan - Assessment Assessment: DANIEL Excerbation COPD Severe Malnutrition Hx Nasopharyngeal CA S/P CVA CAD Ess HTN Anemia CD Psychosis - Plan Plan: Lab - Result Diagrams 12/14/17 04:50 12/14/17 04:50 Current Medications Acetaminophen (Tylenol) 650 mg GT Q4HR PRN PRN Reason: Pain or Fever >101 Stop: 02/10/18 22:29 Albuterol/Ipratropium (Duoneb Neb) 3 ml HHN Q4HRT [facility] Stop: 02/10/18 22:59 Last Admin: 12/14/17 14:45 Dose: 3 ml Ascorbic Acid (Vitamin C) 500 mg GT DAILY [facility] Stop: 02/11/18 10:59 Last Admin: 12/14/17 09:23 Dose: 500 mg Bisacodyl (Dulcolax 10 Mg Supp) 10 mg RC DAILY PRN PRN Reason: Constipation Stop: 02/10/18 22:29 Haloperidol (Haldol) 1 mg PO Q6HR PRN; Protocol PRN Reason: Agitation Stop: 02/12/18 17:59 Norepinephrine Bitartrate 4 mg (/ Dextrose) 254 mls @ 0 mls/hr IV TITR PRN; Protocol; Per Protocol PRN Reason: To Keep SBP Above 90 Stop: 02/10/18 22:33 Last Titration: 12/14/17 01:30 Dose: 0 mcg/min, 0 mls/hr Dopamine HCl/Dextrose (Dopamine) 400 mg in 250 mls @ 8.114 mls/hr IV TITR PRN; 3 MCG/KG/MIN PRN Reason: RENAL PERFUSION Stop: 02/11/18 13:09 Last Infusion: 12/14/17 06:00 Dose: 3 mcg/kg/min, 8.114 mls/hr Piperacillin Sod/Tazobactam (Sod 2.25 gm/ Sodium Chloride) 50 mls @ 100 mls/hr IV Q8HR [facility] Stop: 02/11/18 04:59 Last Infusion: 12/14/17 05:30 Dose: Infused Dextrose/Sodium Chloride (D5-0.45ns) 1,000 mls @ 80 mls/hr IV .[id number] [facility] Stop: 02/12/18 14:44 Insulin Aspart (Novolog) 0 units SUBQ ACHS [facility] PRN Reason: Protocol Stop: 02/11/18 07:29 Last Admin: 12/14/17 12:32 Dose: Not Given Lactobacillus Rhamnosus (Culturelle 15b) 1 each PO DAILY [facility] Stop: 02/12/18 08:59 Last Admin: 12/14/17 09:23 Dose: 1 each Levothyroxine Sodium (Synthroid) 0.05 mg PO QDAC [facility] Stop: 02/12/18 07:29 Lorazepam (Ativan) 0.5 mg GT Q6HR PRN; Protocol PRN Reason: Anxiety Stop: 02/10/18 22:29 Last Admin: 12/14/17 09:23 Dose: 0.5 mg Lorazepam (Ativan) 0.5 mg IV Q6H PRN; Protocol PRN Reason: Agitation Stop: 02/12/18 14:40 Methylprednisolone Sodium Succinate (Solu-Medrol) 60 mg IVP Q8HR [facility] Stop: 02/11/18 16:14 Last Admin: 12/14/17 05:00 Dose: 60 mg Miscellaneous (Vte Chemical Prophylaxis Screen/ Admission) 1 ea PRN PRN PRN Reason: PROTOCOL Stop: 02/11/18 15:50 Miscellaneous (Probiotic Screen) 1 ea PRN PRN PRN Reason: PROTOCOL Stop: 02/11/18 17:23 Ondansetron HCl (Zofran) 4 mg IVP Q6H PRN PRN Reason: Nausea / Vomiting Stop: 02/10/18 22:25 Pantoprazole Sodium (Protonix) 40 mg GT DAILY [facility] Stop: 02/11/18 08:59 Last Admin: 12/14/17 09:23 Dose: 40 mg Sodium Phosphate (Fleet Enema) 135 ml RC Q72HR PRN PRN Reason: Constipation Stop: 02/10/18 22:29 Sodium Polystyrene Lab - Result Diagrams 12/18/17 06:30 12/18/17 06:30 Kidney fnc worse K decreased to 3.3 resp status better replace K WBC up to 21 Nutritional Asmnt/Malnutr-PDOC - Dietary Evaluation Malnutrition Findings (Please click <Entered> for more info): Nutritional Asmnt/Malnutrition Start: 12/13/17 14: 43 Text: Status: Complete Freq: Document 12/13/17 14:43 LCHEATHER (Rec: 12/13/17 14:54 LCHENG JOSE [email or web address]) Nutritional Asmnt/Malnutrition Patient General Information Nutritional Screening High Risk Diagnosis hypotension, acute renal failure Pertinent Medical Hx/Surgical Hx HTN, CAD, asthma/COPD, nasopharyngeal neoplasm, anxiety, PEG-Gtube Subjective Information Pt seen lying in bed, confused . Verified TF running at 30ml/ hr at time of visit. Per nurse note 3/2, no residual noted. Current Diet Order/ Nutrition Support Novosource Renal 30ml/hr x 20hr Pertinent Medications Vit C, d5-0.9%ns, dopamine, novolog, protonix, piperacillin Pertinent Labs 3/2 na 141, K 5.0, Cl 101, BUN 163, Cr 8.1, Glucose 123, POC 123-134, Ca 7.9 Nutritional Hx/Data Height 1.57 m Height (Calculated Centimeters) 157.5 Current Weight (lbs) 72.121 kg Weight (Calculated Kilograms) 72.1 Weight (Calculated Grams) 67240.2 [place] Body Weight 118 % [place] Body Weight 135 Body Mass Index (BMI) 29.0 Weight Status Overweight GI Symptoms GI Symptoms None Last BM 3/2 Difficult in: None Skin Integrity/Comment: rash to left leg, bruise to right and left arm Estimated Nutritional Goals BEE in Kcals: Using Current wt Calories/Kcals/Kg 25-30 Kcals Calculated [id number] Protein: Using Current wt Protein g/k.8-1 considering renal labs Protein Calculated 45-56 Fluid: ml per MD considering acute renal failure Nutritional Problem 1. Problem Problem altered nutrition related lab values Etiology dx of acute renal failure, hx of DM Signs/Symptoms: BUN 163, Cr 8.1, Glucose 123, POC 123-134 Malnutrition Alert Protein-Calorie Malnutrition N/A Is there a minimum of two criteria No selected? Query Text:Check all the applicable criteria. A minimum of two criteria are recommended for diagnosis of either severe or non-severe malnutrition. Intervention/Recommendation Comments 1. Continue with current TF regimen. It provides 1200kcal, 54g protein, 430ml free water , meeting 100% of nutritional needs 2. Monitor TF rate, tolerance, wt weekly, skin integrity and labs 3. F/U as high risk in 2-3 days, 12/15-/5 Expected Outcomes/Goals Expected Outcomes/Goals 1. Pt to meet at least 75% of nutritional needs via nutrition support with tolerance 2. Wt stability, skin to remain intact, labs to approach WNL.
[2017-12-20] MEDS ORDERED: Potassium Chloride 20 mEq ER Tab PO SCH (09:00)
== END 2017-12-18 23:07 | DRG 871 ==
LOC: ER 19:55 → TELE 22:25 → ICU 23:01 → TELE 12-17 07:00
PROVIDERS: ADMIT Internal Medicine; ATTEND Internal Medicine
DX: A41.9 Sepsis, unspecified organism (principal); E43 Unspecified severe protein-calorie malnutrition; J96.90 Respiratory failure, unspecified, unspecified whether with hypoxia or hypercapnia; R65.21 Severe sepsis with septic shock; N17.9 Acute kidney failure, unspecified; E87.5 Hyperkalemia; R13.10 Dysphagia, unspecified; E86.0 Dehydration; E11.22 Type 2 diabetes mellitus with diabetic chronic kidney disease; E83.41 Hypermagnesemia; I12.0 Hypertensive chronic kidney disease with stage 5 chronic kidney disease or end stage renal disease; J44.1 Chronic obstructive pulmonary disease with (acute) exacerbation; N18.5 Chronic kidney disease, stage 5; I25.119 Atherosclerotic heart disease of native coronary artery with unspecified angina pectoris; F41.9 Anxiety disorder, unspecified; Z66 Do not resuscitate; E03.9 Hypothyroidism, unspecified; R41.0 Disorientation, unspecified; F29 Unspecified psychosis not due to a substance or known physiological condition; D63.8 Anemia in other chronic diseases classified elsewhere; I69.30 Unspecified sequelae of cerebral infarction; Z93.1 Gastrostomy status; Z85.818 Personal history of malignant neoplasm of other sites of lip, oral cavity, and pharynx; Z68.32 Body mass index [BMI] 32.0-32.9, adult
CPT/HCPCS: 36415-UA; 71045-TC; 76770-TC; 80048-TC; 80053-TC; 81001-TC; 81015-TC; 82043-90; 82140-TC; 82570-TC; 82607-90; 82746-90; 82948-90; 83036-90; 83735-TC; 83880-TC; 84100-TC; 84300-TC; 84443-TC; 84550-TC; 85007-TC; 85025-TC; 85027-TC; 85610-TC; 93005; 94640; 94760; J1265; J1815; J2060; J2543; J2920; J7042; P9047; X6452; Z7610